=== PATIENT | male | born 1980 | race Caucasian/White ===

== ENCOUNTER 2019-08-01 19:02 | Inpatient (IN) | payer OTHER, SELFPAY ==
--- NOTE | ~2019-08-01 | XR_ITS ---
EXAMINATION: XR foot RT 2V DATE: 08/02/2019 08:05 INDICATION: Lateral right foot edema and erythema. TECHNIQUE: Dorsoplantar and lateral views of the right foot were obtained. COMPARISON: 09/01/2005 FINDINGS: Alignment is normal. No acute fracture. Thick indolent appearing periosteal reaction along the diaphy sis of the third metatarsal likely related to healed stress fracture. Joint spaces are normal. No cor tical erosions. Small plantar calcaneal spur. Soft tissues are unremarkable. IMPRESSION: 1. No acute osseous abnormality. Reviewed, dictated and finalized at location A.
--- NOTE | ~2019-08-01 | CT_ITS ---
EXAMINATION: CT brain wo con EXAM DATE: 08/01/2019 22:22 INDICATION: Temporary change in awareness, found walking on the side of the road. Confusion. TECHNIQUE: Spiral CT of the head was performed without contrast. Axial, coronal and sagittal images were reviewed. The dose-length product (DLP) for this examination was 1362.00 mGy-cm. The exposure was tailored according to patient size, and iterative reconstruction (ASIR) was used as additional do se reduction technique. Comparison is made to prior examination from 02/04/2019. FINDINGS: Study is limited due to patient motion. Patient was scanned twice. There is no acute intrap arenchymal hemorrhage. No evidence of intraparenchymal brain mass lesion. No evidence of acute infa rction. There is no mass effect or midline shift. The ventricles are normal in size. There are no extra-axial collections. There are no acute calvarial fractures. The orbits are unremarkable. Soft tissue is unremarkable. Mild left maxillary sinus mucoperiosteal thickening. IMPRESSION: 1. No acute intracranial findings. Reviewed, dictated and finalized at location G.
--- NOTE | 2019-08-01 19:13 | ECG_ITS ---
Measurements Intervals [place] Rate: 109 P: 34 DE: 144 QRS: 73 QRSD: 106 T: 43 QT: 377 QTc: 508 Interpretive Statements SINUS TACHYCARDIA BASELINE ARTIFACT- I, II, III, AVR, AVL, AVF, V1-V2, V4-V6 ABNORMAL ECG Electronically Signed On 08-02-2019 7:15:14 CDT by Brandon Hancock D.O.
[2019-08-01 19:14] VITALS: BP 127/90; PULSE 102; RESP 22; TEMP 36.7; O2SAT 99
[2019-08-01 19:40] LABS: Basophils Percent Auto 0.3 % (0.2-1.2); Eosinophils Percent Auto 0.1 % (0-4.4); Hematocrit 39.3 % (42.0-52.0); Immature Granulocyte Absolute 0.09 K/mm3 (0.00-0.031); Lymphocytes Absolute Auto 0.84 K/mm3 (0.9-3.2); Lymphocytes Percent Auto 9.6 % (18.3-44.2); Mean Corpuscular HGB Conc 33.1 g/dl (32-36); Mean Corpuscular Hemoglobin 28.5 pg (26-34); Mean Corpuscular Volume 86.2 fl (80-100); Monocytes Absolute Auto 0.9 K/mm3 (0.1-0.6); Neutrophils Absolute Auto 6.9 K/mm3 (1.3-6.7); Platelet Count Result 188 k/mm3 (150-375); Red Blood Count 4.56 M/mm3 (4.6-6.20); Red Cell Distribution Width 14.4 % (11.5-14.5); White Blood Count 8.8 K/mm3 (4.5-10.0)
[2019-08-01 19:52] LABS: Alanine Aminotransferase 73 U/L (4-50); Albumin Level 4.3 g/dL (3.5-5.1); Alkaline Phosphatase 181 U/L (38-126); Aspartate Amino Transferase 139 U/L (17-59); Bilirubin,Total 1.5 mg/dL (0.2-1.3); Blood Urea Nitrogen 23 mg/dL (9-20); Calcium 9.5 mg/dL (8.4-10.2); Carbon Dioxide 30 mmol/L (22-30); Chloride 89 mmol/L (98-107); Estimated CRCL calculation 76 ml/min; Estimated Glomerular Filt Rate > 60; Glucose 87 mg/dL (75-110); Potassium 3.3 mmol/L (3.4-5.0); Sodium 132 mmol/L (137-145)
[2019-08-01 19:57] VITALS: BP 134/94; PULSE 92; RESP 20; O2SAT 97
--- NOTE | 2019-08-01 20:17 | ED.GENADULT ---
HPI - General Adult General Chief complaint: Altered Mental Status Stated complaint: AMS Time Seen by Provider: 08/01/19 20:03 History of Present Illness HPI narrative: 38 yo male w/ h/o alcohol abuse, alcohol withdrawal BIBEMS [place] He wsa noted to be uncooperative and talking nonsensically. He is not providing any useful history at this time. On chart review it appears that he has been here multiple times for both alcohol intoxication and alcohol withdrawal including seizures. Related Data Allergies Allergy/AdvReac Type Severity Reaction Status Date / Time No Known Allergies Allergy Unknown Verified 06/22/19 11:35 Review of Systems Review of Systems: ROS unobtainable: Yes unobtainable due to mental status PMFSH Past Medical History Medical History (Updated 08/01/19 @ 23:51 by Alex Fagan MD) Alcohol abuse Alcohol withdrawal seizure Social History Social History (Updated 08/01/19 @ 20:55 by Alex Fagan MD) Alcohol intake: current Substance use type: marijuana Gender identity (if verbalized by the patient): Male Exam Const: Nutritional Appearance: well nourished Other: Oriented to self and location. Deshevled and unkempt. Feet mildly swollen with many abrasions. Eyes: Conjunctivae: conjunctivae normal Pupils: Equal, round and reactive pupils present EOM: EOMs intact bilaterally Chest: Chest palpation & inspection: normal inspection of the chest Resp: Effort & Inspection: normal respiratory effort Auscultation: clear to auscultation bilaterally Cardio: Rate: regular rate Rhythm: regular rhythm GI: GI Palp: Yes Soft to palpation and No Tenderness to palpation present (GI) Psych: Thought content: Yes Hallucination(s) present Course Vital Signs Vital signs: Vital Signs Temperature 36.7 C 08/01/19 19:14 Pulse Rate 102 H 08/01/19 19:14 Respiratory Rate 22 H 08/01/19 19:14 Blood Pressure 127/90 08/01/19 19:14 Pulse Oximetry 99 08/01/19 19:14 Temperature 36.7 C 08/01/19 19:14 Pulse Rate 100 08/01/19 22:20 Respiratory Rate 22 H 08/01/19 22:20 Blood Pressure 132/98 H 08/01/19 22:20 Pulse Oximetry 100 08/01/19 21:00 Medical Decision Making MDM Narrative Medical decision making narrative: He does not have any ethanol in his system. Urine drug screen is only positive for marijuana. Given his history I will begin treatment for possible alcohol withdrawal, although he is not showing clear physiological evidence of withdrawal symptoms. Differential Diagnosis Differential Diagnosis: Withdrawal, intoxication, psychosis, other Medical Records Medical records reviewed: Yes I reviewed the patient's medical records. Vital Signs Vital Signs: Vital Signs Temperature 36.7 C 08/01/19 19:14 Pulse Rate 102 H 08/01/19 19:14 Respiratory Rate 22 H 08/01/19 19:14 Blood Pressure 127/90 08/01/19 19:14 Pulse Oximetry 99 08/01/19 19:14 Temperature 36.7 C 08/01/19 19:14 Pulse Rate 100 08/01/19 22:20 Respiratory Rate 22 H 08/01/19 22:20 Blood Pressure 132/98 H 08/01/19 22:20 Pulse Oximetry 100 08/01/19 21:00 Lab Data Lab results reviewed: Yes I reviewed the patient's lab results. Result diagrams: 08/01/19 19:34 08/01/19 19:34 Labs: Lab Results 08/01/19 08/01/19 08/01/19 Range/Units 19:34 19:34 19:34 WBC 8.8 (4.5-10.0) K/mm3 RBC 4.56 L (4.6-6.20) M/mm3 Hgb 13.0 L (14.0-18.0) g/dL Hct 39.3 L (42.0-52.0) % MCV 86.2 (80-100) fl MCH 28.5 (26-34) pg MCHC 33.1 (32-36) g/dl RDW 14.4 (11.5-14.5) % Plt Count 188 (150-375) k/mm3 MPV 10.0 (7.4-10.4) fl Immature Gran % (Auto) 1.0 H (0-0.5) % Neut % (Auto) 79.0 H (45.5-73.1) % Lymph % (Auto) 9.6 L (18.3-44.2) % Page % (Auto) 10.0 H (2.6-8.5) % Eos % (Auto) 0.1 (0-4.4) % Baso % (Auto) 0.3 (0.2-1.2) % Lymph # (Auto) 0.84 L (0.9-3.2)
[2019-08-01 20:26] LABS: Ethanol < 10 mg/dL (<10)
--- NOTE | 2019-08-01 20:35 | PC.NURSE ---
Pt had a bowel movement in bed. RN attempting to clean patient up. pt no cooperating. pt refuses to let RN wipe up stool pt states this is going to be a lawsuit. gill tender notified.
--- NOTE | 2019-08-01 20:37 | PC.NURSE ---
pt talking about hearing voices. RN asked pt what he hears pt does not answer. pt states he has grown pot before and states that he thinks he has a learning deficit. Pt then continues to reports that he is from a far and starts talking about how his brother used to have to walk the whole field.
[2019-08-01 21:00] VITALS: BP 126/77; PULSE 87; RESP 17; O2SAT 100
[2019-08-01] MEDS: THIAMINE HCL 200 MG/2 ML VIAL 100 MG IV PUSH (21:12)
[2019-08-01] MEDS: SODIUM CHLORIDE 0.9% IV 1,000 ML 999 ML IV CONT ×2 (21:13→22:38)
[2019-08-01 21:19] LABS: Add Urine Microscopic? YES; Appearance Urine Cloudy (Clear); Bacteria Urine Trace /hpf; Bilirubin Urine 2+ (Negative); Blood Urine 1+ (Negative); Color Urine Amber (Yellow); Glucose Urine UA Negative (Negative); Hyaline Casts Urine 50+ /lpf; Ketones Urine 1+ mg/dL (Negative); Leukocyte Esterase Ur Negative LEU/UL (Negative); Mucus Urine Heavy /lpf; Nitrate Urine Negative (Negative); Protein Urine 3+ mg/dL (Negative); Specific Grav Ur 1.027 (1.001-1.035); Squamous Epithelial Cell Urine Occasional /hpf (Few); WBC Urine 31-50 /hpf
[2019-08-01 21:26] LABS: Amphetamine Screen Urine Negative (Negative); Barbiturate Screen Urine Negative (Negative); Benzodiazepines Screen Urine Negative (Negative); Cannabinoid Screen Urine Positive (Negative); Cocaine Screen Urine Negative (Negative); Methadone Screen Urine Negative (Negative); Opiate Screen Urine Negative (Negative); Phencyclidine Screen Urine Negative (Negative)
[2019-08-01] MEDS: LORAZEPAM INJ 2 MG/ML VIAL 4 MG IV PUSH (21:37)
--- NOTE | 2019-08-01 22:13 | PC.NURSE ---
pt down to ct
[2019-08-01 22:20] VITALS: BP 132/98; PULSE 100; RESP 22
[2019-08-01 23:46] LABS: Creatine Kinase 4016 U/L (55-170)
[2019-08-02] VITALS (19 sets, daily range): BP systolic 117–150; BP diastolic 58–95; PULSE 69–105; RESP 14–20; TEMP 36.1–36.8; O2SAT 96–100; BMI 25.0
[2019-08-02] MEDS: LORAZEPAM INJ 2 MG/ML VIAL IV PUSH ×3 (00:12→20:11)
[2019-08-02] MEDS: LACTATED RINGERS 1,000 ML 200 ML IV CONT (00:51)
--- NOTE | 2019-08-02 01:31 | PC.NURSE ---
Pt is unable to receive admission information, not alert.
--- NOTE | 2019-08-02 01:51 | PC.NURSE ---
Called and left message at [phone] for Arsenio Rubin, listed as next of kin, to return call to do admission, pt is not alert.
--- NOTE | 2019-08-02 02:28 | PC.NURSE ---
Called Yi Rubin listed as s.o. at [phone] to obtain info for admission. Pt is still not alert. Rang several times, but did not go to voicemail.
--- NOTE | 2019-08-02 03:56 | PM.IMHP ---
H&P: HPI History of Present Illness Chief complaint: Found naked on the side of the road hallucinating Narrative: Kristian Tirado is a 38 year old male with a past medical history of multiple admissions for encephalopathy and alcohol withdrawal who presented to the ER via EMS after being found wandering naked and confused. When the patient arrived to the ER was alert and oriented to person and time. He had reported to ER staff that he was hearing voices. He also admitted to drinking too much alcohol. However his alcohol level in the ER was zero. The patient's feet were dirty and had multiple wounds. In the ER the patient was complaining of but pain due to ongoing but abscess. The the only 2 sentences that the patient spoke to me that made since was to tell me that he had a cleft palate that was discovered at the age of 29 and that he bit the end of his tongue off 1 time when he had a seizure. Review of the patient's external med history demonstrates that the patient has not filled his seizure meds since January. He did have Celexa and hydroxyzine filled in June. He is unable to answer any questions regarding his medication history. Source of information: Past medical records and ER records. Review of Systems Review of Systems: ROS unobtainable: Yes unobtainable due to mental status PMFSH Past Medical History Medical History (Updated 08/02/19 @ 04:11 by Татьяна Cortez DO) Alcohol abuse Alcohol withdrawal seizure Alcoholic hepatitis Alcoholic pancreatitis BPH (benign prostatic hyperplasia) Chronic anemia With labs consistent with anemia of chronic disease COPD (chronic obstructive pulmonary disease) Depression with anxiety Essential hypertension Hypercholesterolemia Cholesterol 490 15 April 2018 Hypertriglyceridemia Triglycerides 270 18 April 2018 Kidney stones Peripheral neuropathy Tobacco dependence Surgical History Surgical History (Updated 08/02/19 @ 04:06 by Татьяна Cortez DO) No significant past surgical history Family History Family History (Updated 08/02/19 @ 04:09 by Татьяна Cortez DO) Mother COPD (chronic obstructive pulmonary disease) Breast cancer Hypertension Seizures Diabetes mellitus Father Diabetes mellitus Parkinsons disease Lewy body dementia Social History Social History (Updated 08/02/19 @ 04:09 by Татьяна Cortez DO) Social History: He has 3 children. According to prior H&Ps the patient consumed at least a 5th of gin or vodka a day. Smoking packs per day: 1 Smoking cigarettes per day: 20.0 Smoking status: Current every day smoker Alcohol intake: current Substance use: current Substance use type: marijuana Gender identity (if verbalized by the patient): Male Meds Home Medications and Allergies Home Medications Medication Instructions Recorded Confirmed Type Unable to Obtain Home Medications 08/02/19 08/02/19 History Allergies Allergy/AdvReac Type Severity Reaction Status Date / Time No Known Allergies Allergy Unknown Verified 06/22/19 11:35 Vital Signs Vital Signs - 24 hr 08/01/19 19:14 08/01/19 19:57 08/01/19 21:00 Temperature 98.1 F Pulse Rate 102 H 92 87 Pulse Rate [Monitor] Respiratory Rate 22 H 20 17 Blood Pressure 127/90 134/94 H 126/77 Pulse Oximetry 99 97 100 08/01/19 22:20 08/02/19 00:23 08/02/19 00:25 Temperature 98.3 F Pulse Rate 100 89 84 Pulse Rate [Monitor] Respiratory Rate 22 H 14 18 Blood Pressure 132/98 H 117/89 127/64 Pulse Oximetry 98 97 08/02/19 00:35 08/02/19 00:54 08/02/19 01:11 Temperature Pulse Rate 80 Pulse Rate [Monitor] 92 93 Respiratory Rate Blood Pressure Pulse Oximetry 08/02/19 02:00 Temperature Pulse Rate 94 Pulse Rate [Monitor] Respiratory Rate Blood Pressure Pulse Oximetry Exam Narrative: Exam Narrative: PHYSICAL EXAM: WEIGHT 83.5 kg BMI 25 General: Disheveled, no acute distress, left lateral recumbent posi
[2019-08-02 04:37] LABS: Hematocrit 32.5 % (42.0-52.0); Hemoglobin 10.8 g/dL (14.0-18.0); Mean Corpuscular HGB Conc 33.2 g/dl (32-36); Mean Corpuscular Hemoglobin 28.5 pg (26-34); Mean Corpuscular Volume 85.8 fl (80-100); Mean Platelet Volume 9.4 fl (7.4-10.4); Platelet Count Result 157 k/mm3 (150-375); Red Blood Count 3.79 M/mm3 (4.6-6.20); Red Cell Distribution Width 14.6 % (11.5-14.5); White Blood Count 7.3 K/mm3 (4.5-10.0)
[2019-08-02 04:49] LABS: Ammonia 17 umol/L (9-30)
[2019-08-02 04:52] LABS: Magnesium 1.5 mg/dL (1.6-2.3)
[2019-08-02 05:01] LABS: Blood Urea Nitrogen 22 mg/dL (9-20); Carbon Dioxide 23 mmol/L (22-30); Chloride 96 mmol/L (98-107); Creatine Kinase 2512 U/L (55-170); Estimated CRCL calculation 120 ml/min; Estimated Glomerular Filt Rate > 60; Glucose 71 mg/dL (75-110); Potassium 2.7 mmol/L (3.4-5.0); Sodium 132 mmol/L (137-145)
[2019-08-02 07:39] LABS: Folic Acid 14.2 ng/mL (2.76->20)
[2019-08-02] MEDS: ENOXAPARIN 40 MG/0.4 ML SYRINGE SUB-Q (08:06)
[2019-08-02] MEDS: NICOTINE (*PBKC) 21 MG PATCH 1 PATCH TRANSDERM (08:06)
[2019-08-02] MEDS: MAGNESIUM SULF 2 GM/WATER 50ML 2 GM/50 ML BAG IVPB (09:09)
[2019-08-02] MEDS: LACTATED RINGERS 1,000 ML 75 ML IV CONT (09:14)
[2019-08-02] MEDS: POTASSIUM CHLORIDE 20 MEQ TABLET 40 MEQ PO ×2 (17:15→20:11)
--- NOTE | 2019-08-02 17:32 | PM.IMPN ---
Progress Note: A&P Assessment and Plan (1) Acute encephalopathy: Code(s): G93.40 - Encephalopathy, unspecified Status: Acute Assessment and Plan: I suspect this is due to alcohol withdrawal and much improved this a.m. so continue aggressive hydration and monitor for withdrawal. He may also have ingested drugs that may not show up on urine drug screen such as bath salts. B12 and thyroid are normal also to rule out other causes for encephalopathy. (2) Alcohol abuse: Code(s): F10.10 - Alcohol abuse, uncomplicated Status: Acute Assessment and Plan: Will check CIWA scores every 4 hours. The patient will be started scheduled Librium and p.r.n. Ativan will be added for CIWA scores greater than 8. (3) Rhabdomyolysis: Qualifiers: Rhabdomyolysis type: non-traumatic Qualified Code(s): M62.82 - Rhabdomyolysis Code(s): M62.82 - Rhabdomyolysis Status: Acute Assessment and Plan: Continue aggressive IV fluid hydration. CK today decreased to 2500. Will give sedatives to try to control some of the patient's manic behaviors to reduce physical exertion. Creatinine remains normal (4) Hypokalemia: Code(s): E87.6 - Hypokalemia Status: Acute Assessment and Plan: K 2.7 this a.m. and will receive 120 mEq of KCl and repeat this p.m. (5) Elevated LFTs: Code(s): R79.89 - Other specified abnormal findings of blood chemistry Status: Acute Assessment and Plan: Mildly elevated. Hepatitis screens been negative in the past thought all secondary to alcohol will follow serially (6) DVT prophylaxis: Code(s): Z29.9 - Encounter for prophylactic measures, unspecified Status: Acute Assessment and Plan: Platelets are normal so will give Lovenox prophylactically Subjective Date/time seen: 08/02/19 17:32 Interval history: Date of visit 08/01. 38-year-old white male alcoholic admitted with altered mental status electrolyte disturbances, and symptoms of withdrawal. Long history of ETOH abuse withdrawal seizures. More alert and no specific complaints this a.m. other than his chronic neuropathy type symptoms Exam Narrative: Exam Narrative: Blood pressure 120/76 pulse is 96 respirations 16 afebrile saturating 97% on room air Pupils equal reactive to light sclera anicteric and pupils are not dilated Neck supple no adenopathy or carotid bruits Lungs clear CV regular rate rhythm Abdomen is soft nontender Extremities without edema distal pulses are 2+ Neuro alert oriented to person place and time with no focal deficits Integument no skin breakdown rashes Objective Data Vital Signs Vital Signs: Vital Signs - 24 hr 08/01/19 19:14 08/01/19 19:57 08/01/19 21:00 Temperature 36.7 C Pulse Rate 102 H 92 87 Pulse Rate [Monitor] Respiratory Rate 22 H 20 17 Blood Pressure 127/90 134/94 H 126/77 Pulse Oximetry 99 97 100 08/01/19 22:20 08/02/19 00:23 08/02/19 00:25 Temperature 36.8 C Pulse Rate 100 89 84 Pulse Rate [Monitor] Respiratory Rate 22 H 14 18 Blood Pressure 132/98 H 117/89 127/64 Pulse Oximetry 98 97 08/02/19 00:35 08/02/19 00:54 08/02/19 01:11 Temperature Pulse Rate 80 Pulse Rate [Monitor] 92 93 Respiratory Rate Blood Pressure Pulse Oximetry 08/02/19 02:00 08/02/19 04:00 08/02/19 05:52 Temperature 36.6 C Pulse Rate 94 81 79 Pulse Rate [Monitor] 81 Respiratory Rate 20 Blood Pressure 130/58 L Pulse Oximetry 100 08/02/19 08:00 08/02/19 10:00 08/02/19 11:18 Temperature 36.1 C L 36.4 C Pulse Rate 90 105 H 98 Pulse Rate [Monitor] 90 Respiratory Rate 18 16 Blood Pressure 150/95 H 120/77 Pulse Oximetry 99 96 08/02/19 12:00 08/02/19 14:00 08/02/19 16:00 Temperature 36.2 C L Pulse Rate 99 86 102 H Pulse Rate [Monitor] 90 Respiratory Rate 16 18 Blood Pressure 120/77 131/80 Pulse Oximetry 96 97 Intake/Output Intake/Output: Intake & Outpu
[2019-08-02 18:02] LABS: Albumin Level 3.6 g/dL (3.5-5.1); Blood Urea Nitrogen 15 mg/dL (9-20); Calcium 8.6 mg/dL (8.4-10.2); Carbon Dioxide 30 mmol/L (22-30); Chloride 95 mmol/L (98-107); Estimated CRCL calculation 120 ml/min; Estimated Glomerular Filt Rate > 60; Glucose 126 mg/dL (75-110); Phosphorus 3.2 mg/dL (2.5-4.5); Potassium 3.3 mmol/L (3.4-5.0); Sodium 130 mmol/L (137-145)
[2019-08-02] MEDS: LACTATED RINGERS 1,000 ML 125 ML IV CONT (19:01)
[2019-08-03] VITALS (13 sets, daily range): BP systolic 137–163; BP diastolic 80–116; PULSE 75–97; RESP 16–20; TEMP 36.3–37.5; O2SAT 98–100
[2019-08-03] MEDS: LORAZEPAM INJ 2 MG/ML VIAL IV PUSH (01:15)
[2019-08-03] MEDS: LACTATED RINGERS 1,000 ML 125 ML IV CONT ×3 (03:50→20:03)
[2019-08-03 04:42] LABS: Basophils Absolute Auto 0.1 K/mm3 (0.0-0.1); Basophils Percent Auto 0.8 % (0.2-1.2); Eosinophils Absolute Auto 0.3 K/mm3 (0-0.3); Eosinophils Percent Auto 4.3 % (0-4.4); Hematocrit 34.1 % (42.0-52.0); Hemoglobin 10.9 g/dL (14.0-18.0); Immature Granulocyte Absolute 0.12 K/mm3 (0.00-0.031); Immature Granulocyte Percent A 1.9 % (0-0.5); Lymphocytes Absolute Auto 1.33 K/mm3 (0.9-3.2); Lymphocytes Percent Auto 20.6 % (18.3-44.2); Mean Corpuscular Hemoglobin 28.1 pg (26-34); Mean Corpuscular Volume 87.9 fl (80-100); Monocytes Absolute Auto 0.9 K/mm3 (0.1-0.6); Monocytes Percent Auto 14.5 % (2.6-8.5); Neutrophils Absolute Auto 3.8 K/mm3 (1.3-6.7); Neutrophils Percent Auto 57.9 % (45.5-73.1); Platelet Count Result 180 k/mm3 (150-375); Red Blood Count 3.88 M/mm3 (4.6-6.20); Red Cell Distribution Width 15.2 % (11.5-14.5); White Blood Count 6.5 K/mm3 (4.5-10.0)
[2019-08-03 04:55] LABS: Alanine Aminotransferase 52 U/L (4-50); Albumin Level 3.1 g/dL (3.5-5.1); Alkaline Phosphatase 142 U/L (38-126); Aspartate Amino Transferase 75 U/L (17-59); Bilirubin,Total 0.5 mg/dL (0.2-1.3); Blood Urea Nitrogen 10 mg/dL (9-20); Calcium 8.3 mg/dL (8.4-10.2); Carbon Dioxide 25 mmol/L (22-30); Chloride 101 mmol/L (98-107); Creatine Kinase 1077 U/L (55-170); Estimated CRCL calculation 135 ml/min; Estimated Glomerular Filt Rate > 60; Glucose 121 mg/dL (75-110); Magnesium 1.6 mg/dL (1.6-2.3); Potassium 3.8 mmol/L (3.4-5.0); Sodium 133 mmol/L (137-145)
[2019-08-03 05:25] LABS: Iron 36 ug/dL (49-181)
[2019-08-03 05:34] LABS: Percent Iron Saturation 12 % (20-50)
[2019-08-03] MEDS: CHLORDIAZEPOXIDE 25 MG CAPSULE 50 MG PO ×4 (08:23→23:47)
[2019-08-03] MEDS: NICOTINE (*PBKC) 21 MG PATCH 1 PATCH TRANSDERM (08:24)
[2019-08-03] MEDS: POTASSIUM CHLORIDE 20 MEQ TABLET 40 MEQ PO (08:24)
[2019-08-03] MEDS: ENOXAPARIN 40 MG/0.4 ML SYRINGE SUB-Q (08:24)
[2019-08-03] MEDS: levETIRAcetam 500 MG TABLET PO ×2 (10:07→17:14)
[2019-08-03] MEDS: CITALOPRAM HYDROBROMIDE 20 MG TABLET PO (10:08)
--- NOTE | 2019-08-03 11:01 | PC.NURSE ---
This patient, Kristian Tirado, was transferred to [facility] on 08/03/19 at 1057. Personal belongings sent with patient. Belongings list checked and signed with receiving. Report given to GIULIANO Taylor. Appropriate documentation sent with patient.
[2019-08-03] MEDS: AMLODIPINE BESYLATE 5 MG TABLET PO (11:35)
--- NOTE | 2019-08-03 14:15 | PM.IMPN ---
Progress Note: A&P Assessment and Plan (1) Acute encephalopathy: Code(s): G93.40 - Encephalopathy, unspecified Status: Acute Assessment and Plan: I suspect this was due to alcohol withdrawal and has resolved. so continue aggressive hydration and monitor for withdrawal. He may also have ingested drugs that may not show up on urine drug screen such as bath salts. B12 and thyroid are normal also to rule out other causes for encephalopathy. (2) Alcohol abuse: Code(s): F10.10 - Alcohol abuse, uncomplicated Status: Acute Assessment and Plan: Will check CIWA scores every 4 hours. The patient is on scheduled Librium and p.r.n. Ativan will be added for CIWA scores greater than 8. (3) Rhabdomyolysis: Qualifiers: Rhabdomyolysis type: non-traumatic Qualified Code(s): M62.82 - Rhabdomyolysis Code(s): M62.82 - Rhabdomyolysis Status: Acute Assessment and Plan: Continue aggressive IV fluid hydration. CK today decreased to 1077. Creatinine remains normal (4) Hypokalemia: Code(s): E87.6 - Hypokalemia Status: Acute Assessment and Plan: K 3.8 this a.m. after 160 mEq of KCl 08/01 (5) Elevated LFTs: Code(s): R79.89 - Other specified abnormal findings of blood chemistry Status: Acute Assessment and Plan: Mildly elevated. Hepatitis screens been negative in the past thought all secondary to alcohol will follow serially slightly decreased again today (6) DVT prophylaxis: Code(s): Z29.9 - Encounter for prophylactic measures, unspecified Status: Acute Assessment and Plan: Platelets are normal so will give Lovenox prophylactically (7) Seizure disorder: Code(s): G40.909 - Epilepsy, unspecified, not intractable, without status epilepticus Status: Acute Assessment and Plan: Patient has had seizures in the past clot primarily withdrawal but has been on Keppra so will continue 500 b.i.d. (8) HTN (hypertension): Code(s): I10 - Essential (primary) hypertension Status: Acute Assessment and Plan: Blood pressure continues to rise. He is been treated for hypertension in the past and we will restart amlodipine 5 daily Subjective Date/time seen: 08/03/19 14:15 Interval history: Date of visit 08/02. 38-year-old white male alcoholic admitted with altered mental status electrolyte disturbances, and symptoms of withdrawal. Long history of ETOH abuse withdrawal seizures. More alert and no specific complaints this a.m. Eating breakfast and feeling better Exam Narrative: Exam Narrative: Blood pressure 150/100 pulse is 80 respirations 16 afebrile saturating 100% on room air Pupils equal reactive to light sclera anicteric and pupils are not dilated Neck supple no adenopathy or carotid bruits Lungs clear CV regular rate rhythm Abdomen is soft nontender Extremities without edema distal pulses are 2+ Neuro alert oriented to person place and time with no focal deficits Integument no skin breakdown rashes Objective Data Vital Signs Vital Signs: Vital Signs - 24 hr 08/02/19 16:00 08/02/19 18:00 08/02/19 19:50 Temperature 36.2 C L 36.8 C Pulse Rate 98 100 86 Pulse Rate [Monitor] Respiratory Rate 18 16 Blood Pressure 131/80 133/81 Pulse Oximetry 97 97 08/02/19 20:00 08/02/19 22:00 08/02/19 23:58 Temperature 36.6 C Pulse Rate 90 89 87 Pulse Rate [Monitor] 90 Respiratory Rate 16 Blood Pressure 131/79 Pulse Oximetry 97 08/03/19 00:00 08/03/19 02:00 08/03/19 03:51 Temperature 36.4 C L Pulse Rate 91 97 91 Pulse Rate [Monitor] 91 Respiratory Rate 16 Blood Pressure 137/80 Pulse Oximetry 98 08/03/19 04:00 08/03/19 06:00 08/03/19 08:00 Temperature Pulse Rate 90 94 96 Pulse Rate [Monitor] Respiratory Rate Blood Pressure Pulse Oximetry 08/03/19 08:44 08/03/19 08:47 08/03/19 09:30 Temperature 36.3 C L Pulse Rate 9
[2019-08-04 02:00] VITALS: BP 156/82; PULSE 72; RESP 20; TEMP 36.2; O2SAT 97
[2019-08-04] MEDS: LACTATED RINGERS 1,000 ML 125 ML IV CONT (04:17)
[2019-08-04] MEDS: CHLORDIAZEPOXIDE 25 MG CAPSULE 50 MG PO (06:08)
[2019-08-04 06:25] VITALS: BP 145/79; PULSE 76; RESP 18; TEMP 36.3; O2SAT 98
[2019-08-04 07:12] LABS: Alanine Aminotransferase 69 U/L (4-50); Albumin Level 3.1 g/dL (3.5-5.1); Alkaline Phosphatase 136 U/L (38-126); Aspartate Amino Transferase 79 U/L (17-59); Bilirubin,Total 0.3 mg/dL (0.2-1.3); Blood Urea Nitrogen 7 mg/dL (9-20); Calcium 8.6 mg/dL (8.4-10.2); Carbon Dioxide 27 mmol/L (22-30); Chloride 101 mmol/L (98-107); Creatine Kinase 546 U/L (55-170); Estimated CRCL calculation 135 ml/min; Estimated Glomerular Filt Rate > 60; Glucose 110 mg/dL (75-110); Magnesium 1.3 mg/dL (1.6-2.3); Potassium 4.2 mmol/L (3.4-5.0); Sodium 132 mmol/L (137-145)
[2019-08-04] MEDS: ENOXAPARIN 40 MG/0.4 ML SYRINGE SUB-Q (08:31)
[2019-08-04] MEDS: levETIRAcetam 500 MG TABLET PO (08:31)
[2019-08-04] MEDS: CITALOPRAM HYDROBROMIDE 20 MG TABLET PO (08:31)
[2019-08-04] MEDS: NICOTINE (*PBKC) 21 MG PATCH 1 PATCH TRANSDERM (08:31)
[2019-08-04] MEDS: AMLODIPINE BESYLATE 5 MG TABLET PO (08:31)
[2019-08-04 10:00] VITALS: BP 155/96; PULSE 103; RESP 19; TEMP 36.7; O2SAT 96
[2019-08-04] MEDS: MAGNESIUM SULFATE 3GM/D5W100ML 3 GM/100 ML BAG IVPB (11:08)
[2019-08-04] MEDS: CHLORDIAZEPOXIDE 25 MG CAPSULE PO (11:11)
--- NOTE | 2019-08-04 14:53 | PC.NURSE ---
Patients family concerned with patient being discharged home. They have requested he stay here until he can be accepted to a psych facility. Spoke with college and career counselor who will speak with family in regards to plan of care. At this time, patient will be going to [facility] on Tuesday when bed is available. As of now, he will be discharged to a motel where his father in law, Arsenio, is going to pay for his stay for two nights until he can be accepted to the psych unit.
--- NOTE | 2019-08-04 17:55 | PM.DS ---
DS: Diagnosis Admitting Diagnosis Admitting Diagnosis: Encephalopathy, unspecified Discharge Diagnosis (1) Acute encephalopathy: Code(s): G93.40 - Encephalopathy, unspecified Status: Acute Assessment and Plan: [place] all due to alcohol withdrawal and has resolved with hydration and supportive care He may also have ingested drugs that may not show up on urine drug screen such as bath salts. B12 and thyroid are normal also to rule out other causes for encephalopathy. (2) Alcohol abuse: Code(s): F10.10 - Alcohol abuse, uncomplicated Status: Acute Assessment and Plan: The patient was on scheduled Librium which was tapered while here and p.r.n. Ativan (3) Rhabdomyolysis: Qualifiers: Rhabdomyolysis type: non-traumatic Qualified Code(s): M62.82 - Rhabdomyolysis Code(s): M62.82 - Rhabdomyolysis Status: Acute Assessment and Plan: . Initial CPK greater than 4000 and day of discharge in the 546 after IV hydration Creatinine remained normal (4) Hypokalemia: Code(s): E87.6 - Hypokalemia Status: Acute Assessment and Plan: K 4.2 date of discharge (5) Elevated LFTs: Code(s): R79.89 - Other specified abnormal findings of blood chemistry Status: Acute Assessment and Plan: Mildly elevated. Hepatitis screens been negative in the past thought all secondary to alcohol. Date trended down while here and we encouraged him to stain from a all (6) Seizure disorder: Code(s): G40.909 - Epilepsy, unspecified, not intractable, without status epilepticus Status: Acute Assessment and Plan: Patient has had seizures in the past thought to be primarily withdrawal but has been on Keppra so will continue 500 b.i.d. (7) HTN (hypertension): Code(s): I10 - Essential (primary) hypertension Status: Acute Assessment and Plan: Blood pressure continued to run. He had been treated for hypertension in the past and we restarted amlodipine 5 daily DS: Summary Hospital Course Hospital Course: 38-year-old alcoholic found side of the road hallucinating and was brought to the emergency room for evaluation. Blood to be in a home withdrawal and was admitted for treatment of the same. With hydration and supportive care his mental status returned to normal. He did have rhabdo and was treated with IV hydration with falling of CPK He was encouraged again to abstain from alcohol. He will follow up with primary care within 1 week and if does would be good to have repeat LFTs Time Spent with Patient Time attestation: Total time spent providing and/or coordinating discharge services: 35 minutes Exam Narrative: Exam Narrative: Condition on discharge Blood pressure 154/90 pulse is 96 sat 96 room air afebrile Lungs clear CV regular rate rhythm Abdomen soft nontender Extremities without edema Neuro alert oriented x3 cooperative with no focal deficits DS: Data Data Completed and Pending Labs on day of discharge: Labs from last 24 hours 08/04/19 06:34 Sodium 132 L Potassium 4.2 Chloride 101 Carbon Dioxide 27 BUN 7 L Creatinine 0.70 Estim Creat Clear Calc 135 Estimated GFR > 60 Glucose 110 Calcium 8.6 Magnesium 1.3 L Total Bilirubin 0.3 AST 79 H ALT 69 H Alkaline Phosphatase 136 H Total Creatine Kinase 546 H Total Protein 6.0 L Albumin 3.1 L Discharge Plan Discharge Attending physician on discharge: Adam Wells Discharging Clinician: Adam Wells Patient Disposition: Home, Self-Care Activity: as tolerated Diet: low sodium Discharge Instructions: no alcohol Patient Instructions: Amlodipine (By mouth), How to Stop Smoking (DC), Alcohol Intoxication (ED) Stand Alone Forms: General Discharge Information Follow-up/Referrals: Keo,Yi Pak MD [Primary Care Provider] - 2 Weeks Discharge Medications: New amlodipine [Norvasc] 5 mg T
== END 2019-08-04 15:07 | disposition home or self-care (01) | DRG 775 ==
LOC: ANHED 23:34 → ANHIMU 23:51 → ANH2MED 08-04 11:53 → ANHIMU 08-08 07:22
PROVIDERS: Emergency Medicine; Admitting Provider Internal Medicine; Emergency Provider Emergency Medicine; PCP Family Medicine; Visit Provider Internal Medicine
DX: F10.151 Alcohol abuse with alcohol-induced psychotic disorder with hallucinations (principal); N40.0 Benign prostatic hyperplasia without lower urinary tract symptoms; D63.8 Anemia in other chronic diseases classified elsewhere; J44.9 Chronic obstructive pulmonary disease, unspecified; F41.8 Other specified anxiety disorders; I10 Essential (primary) hypertension; E78.00 Pure hypercholesterolemia, unspecified; E78.1 Pure hyperglyceridemia; Z87.442 Personal history of urinary calculi; G62.9 Polyneuropathy, unspecified; F17.210 Nicotine dependence, cigarettes, uncomplicated; G93.49 Other encephalopathy; M62.82 Rhabdomyolysis; E87.6 Hypokalemia; G40.909 Epilepsy, unspecified, not intractable, without status epilepticus
CPT/HCPCS: 36415; 51701; 70450; 73620; 80048; 80053; 80069; 80307; 81001; 82140; 82550; 82607; 82728; 82746; 83540; 83550; 83735; 84443; 85025; 85027; 87086; 93005; 96361; 96374; 96375; 99285; A9270; J1650; J2060; J3411; J3475; J3480; J7030; J7120

== ENCOUNTER 2019-10-14 19:26 | Inpatient (IN) | payer OTHER, SELFPAY ==
--- NOTE | ~2019-10-14 | MR_ITS ---
EXAMINATION: MR brain/brain stem wo/w con DATE: 10/15/2019 11:07 INDICATION: Seizure. TECHNIQUE: Magnetic resonance imaging (MRI) of the brain and brainstem was performed without and with 19 mL MultiHance intravenous contrast. Sequences included sagittal and axial T1-weighted FSE, axial diffusion-weighted FS EPI, axial T2*-weighted GRE, axial T2-weighted FLAIR Propeller, and axial T2-we ighted Propeller. Postcontrast sequences included axial and coronal T1-weighted FSE. Apparent diffusi on coefficient (ADC) maps were created. COMPARISON: Head CT 10/14/2019, 04/26/18, 06/16/18 FINDINGS: Motion artifact is noted. There is cystic encephalomalacia in the central fabiola bilaterally with sparing of the corticospinal tracts. There is no intracranial hemorrhage, acute infarction, or a bnormal intracranial mass lesion. The ventricles are normal in size. The orbits are normal. There is mild mucosal thickening in the ethmoid sinuses. There is right cheek soft tissue swelling. IMPRESSION: 1. 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 Reviewed, dictated and finalized at location [facility]. IMPRESSION: 1. Chronic encephalomalacia in the central fabiola in a distribution typical of ce ntral pontine myelinolysis.
--- NOTE | ~2019-10-14 | CT_ITS ---
EXAMINATION: CT brain wo con DATE: 10/14/2019 20:49 INDICATION: Seizure. Confusion. TECHNIQUE: Computed tomography (CT) of the head was performed without intravenous contrast. The mA wa s adjusted according to patient size. Iterative reconstruction technique was employed. Exam dose: 60 5.33 mGy-cm total exam DLP. COMPARISON: 08/01/2019 CT brain FINDINGS: There is some diminished attenuation in the region of the fabiola which may be due to intrinsi c abnormality versus beam hardening artifact. Consider MRI brain for more definitive evaluation. There is greater than expected prominence of the vertical sulci and ventricles for age, suggesting ce rebral atrophy of uncertain origin. No intracranial mass lesion or hemorrhage, midline shift or mass effect or subdural or epidural hemat dangelo is detected. No fracture or bone destruction of the cranial vault. IMPRESSION: Consider MRI of the brain for more definitive evaluation of possible encephalomalacia th e lungs versus beam hardening artifact Greater than expected cerebral atrophy Reviewed, dictated and finalized at [facility]. Reviewed, dictated and finalized at location [facility]. IMPRESSION: Consider MRI of the brain for more definitive evaluation of possib le encephalomalacia the lungs versus beam hardening artifact Greater than expected cerebral atrophy
[2019-10-14 19:38] VITALS: BP 145/90; PULSE 101; RESP 16; TEMP 36; O2SAT 93
[2019-10-14 20:19] LABS: Basophils Percent Auto 0.3 % (0.2-1.2); Hemoglobin 14.3 g/dL (14.0-18.0); Immature Granulocyte Absolute 0.06 K/mm3 (0.00-0.031); Immature Granulocyte Percent A 0.5 % (0-0.5); Lymphocytes Absolute Auto 0.49 K/mm3 (0.9-3.2); Lymphocytes Percent Auto 4.1 % (18.3-44.2); Mean Corpuscular Hemoglobin 30.4 pg (26-34); Mean Corpuscular Volume 89.4 fl (80-100); Mean Platelet Volume 9.7 fl (7.4-10.4); Monocytes Absolute Auto 0.6 K/mm3 (0.1-0.6); Monocytes Percent Auto 5.4 % (2.6-8.5); Neutrophils Absolute Auto 10.6 K/mm3 (1.3-6.7); Neutrophils Percent Auto 89.7 % (45.5-73.1); Platelet Count Result 221 k/mm3 (150-375); Red Cell Distribution Width 15.1 % (11.5-14.5); White Blood Count 11.8 K/mm3 (4.5-10.0)
[2019-10-14 20:21] VITALS: BP 157/116; PULSE 110; RESP 24; O2SAT 92
--- NOTE | 2019-10-14 20:27 | ED.GENADULT ---
HPI - General Adult General Chief complaint: Seizure Stated complaint: seizures Time Seen by Provider: 10/14/19 19:44 History of Present Illness HPI narrative: Patient is 38 y/o male brought in by his fiancee for multiple seizure. He states that he feels slightly confused, but otherwise feels ok. She states that she lives with him and witnessed 4-5 seizures. She states that he has been drinking and last time he drank was 2 days ago. He was prescribed Keppra previously, but has not been taking it. Related Data Home Medications Medication Instructions Recorded Confirmed citalopram 20 mg PO DAILY 08/03/19 10/15/19 levetiracetam 500 mg PO BID 08/03/19 10/15/19 Allergies Allergy/AdvReac Type Severity Reaction Status Date / Time No Known Allergies Allergy Unknown Verified 10/14/19 19:41 Review of Systems Constitutional: Constitutional: Denies chills, Denies fever(s), Denies headache(s) and Denies weakness Eyes: Eyes: Denies blurry vision ENT: Denies headache(s) and Denies neck pain Cardiovascular: Cardiovascular: Denies chest pain and Denies dyspnea Respiratory: Respiratory: Denies cough and Denies dyspnea Gastrointestinal: Gastrointestinal: Denies abdominal pain, Denies diarrhea, Denies nausea and Denies vomiting Genitourinary: Genitourinary: Denies hematuria and Denies dysuria Musculoskeletal: Musculoskeletal: Denies back pain and Denies neck pain Neurologic: Reports confusion, Denies headache(s), Reports seizure-like activity and Denies weakness PMFSH Past Medical History Medical History Alcohol abuse Alcohol withdrawal seizure Alcoholic hepatitis Alcoholic pancreatitis BPH (benign prostatic hyperplasia) Chronic anemia With labs consistent with anemia of chronic disease COPD (chronic obstructive pulmonary disease) Depression with anxiety Essential hypertension Hypercholesterolemia Cholesterol 490 15 April 2018 Hypertriglyceridemia Triglycerides 270 18 April 2018 Kidney stones Peripheral neuropathy Tobacco dependence Surgical History Surgical History No significant past surgical history Family History Family History Mother COPD (chronic obstructive pulmonary disease) Breast cancer Hypertension Seizures Diabetes mellitus Father Diabetes mellitus Parkinsons disease Lewy body dementia Social History Social History Social History: He has 3 children. According to prior H&Ps the patient consumed at least a 5th of gin or vodka a day. Smoking packs per day: 1 Smoking cigarettes per day: 20.0 Years smoked: 10 Smoking pack-years: 10.00 Smoking status: Current every day smoker Tobacco type: cigarettes Alcohol intake: current Substance use: current Substance use type: marijuana Gender identity (if verbalized by the patient): Male Spiritual care concerns: No Agree to blood products: Yes Exam Const: General: no acute distress and well developed Orientation/consciousness: oriented to person, oriented to place, oriented to time and patient oriented x3 HENMT: Head: normocephalic Ears: external ears normal General nose exam: Normal external nose present Eyes: General: appearance normal, both eyes and all related structures Conjunctivae: conjunctivae normal Neck: Neck: normal visual inspection and full ROM Chest: Chest palpation & inspection: normal inspection of the chest and no tenderness Resp: Effort & Inspection: normal respiratory effort and able to speak in complete sentences Cardio: Rate: tachycardic Rhythm: regular rhythm GI: GI Palp: No abdominal tenderness and Yes Soft to palpation Skin: General skin exam: normal color and turgor normal Neuro: General: oriented to person, oriented to place, oriented to time and patient oriented
[2019-10-14 20:29] LABS: Alanine Aminotransferase 54 U/L (4-50); Albumin Level 4.4 g/dL (3.5-5.1); Alkaline Phosphatase 189 U/L (38-126); Aspartate Amino Transferase 73 U/L (17-59); Bilirubin,Total 1.6 mg/dL (0.2-1.3); Blood Urea Nitrogen 13 mg/dL (9-20); Calcium 9.9 mg/dL (8.4-10.2); Carbon Dioxide 28 mmol/L (22-30); Chloride 92 mmol/L (98-107); Estimated CRCL calculation 107 ml/min; Estimated Glomerular Filt Rate > 60; Glucose 192 mg/dL (75-110); Potassium 3.6 mmol/L (3.4-5.0); Sodium 132 mmol/L (137-145)
[2019-10-14 20:49] LABS: Ethanol < 10 mg/dL (<10)
[2019-10-14 22:06] VITALS: BP 149/105; PULSE 130; RESP 20; O2SAT 96
[2019-10-14 22:54] VITALS: BP 145/106; PULSE 130; RESP 20; O2SAT 97
[2019-10-14 23:35] VITALS: BP 142/109; PULSE 126; RESP 22; O2SAT 97
[2019-10-14 23:46] VITALS: BP 139/94; PULSE 97; RESP 18; TEMP 36.7; O2SAT 99; BMI 29.7
[2019-10-14] MEDS: levETIRAcetam 1000MG/NACL100ML 1,000 MG/100 ML BAG 400 MG IVPB (23:57)
[2019-10-15] VITALS (20 sets, daily range): BP systolic 98–139; BP diastolic 54–94; PULSE 70–120; RESP 18–20; TEMP 35.8–36.8; O2SAT 97–100
--- NOTE | 2019-10-15 00:08 | PM.IMHP ---
H&P: HPI History of Present Illness Chief complaint: seizure Narrative: This is a 38 year old male with known alcohol abuse disorder and alcoholic hepatitis who was brought the to the hospital for multiple seizures today. His girlfriend had reported to ER staff that he had 5 seizures today. The patient admits that he last drank Vodka 2 days ago and that he wants to quit drinking alcohol. He doesn't remember any details regarding his seizures today. The patient is known to be on Keppra but apparently has not been taking it. Tonight he complains of feeling anxious, shakiness, and nausea. He was evaluated in the ER and routine labs were obtained and demonstrated elevated liver enzymes which has been chronic. The patient denies any fever, chills, cough, shortness of breath, chest pain, abdominal pain, dysuria, hematuria, diarrhea or rectal bleeding. Neurology has been consulted by ER provider. Review of Systems Review of Systems: All systems reviewed & are unremarkable except as noted in HPI and below PMFSH Past Medical History Medical History Alcohol abuse Alcohol withdrawal seizure Alcoholic hepatitis Alcoholic pancreatitis BPH (benign prostatic hyperplasia) Chronic anemia With labs consistent with anemia of chronic disease COPD (chronic obstructive pulmonary disease) Depression with anxiety Essential hypertension Hypercholesterolemia Cholesterol 490 15 April 2018 Hypertriglyceridemia Triglycerides 270 18 April 2018 Kidney stones Peripheral neuropathy Tobacco dependence Surgical History Surgical History No significant past surgical history Family History Family History Mother COPD (chronic obstructive pulmonary disease) Breast cancer Hypertension Seizures Diabetes mellitus Father Diabetes mellitus Parkinsons disease Lewy body dementia Social History Social History Social History: He has 3 children. According to prior H&Ps the patient consumed at least a 5th of gin or vodka a day. Smoking packs per day: 1 Smoking cigarettes per day: 20.0 Years smoked: 10 Smoking pack-years: 10.00 Smoking status: Current every day smoker Tobacco type: cigarettes Alcohol intake: current Substance use: current Substance use type: marijuana Gender identity (if verbalized by the patient): Male Spiritual care concerns: No Agree to blood products: Yes Meds Home Medications and Allergies Home Medications Medication Instructions Recorded Confirmed Type citalopram 20 mg PO DAILY 08/03/19 10/15/19 History levetiracetam 500 mg PO BID 08/03/19 10/15/19 History amlodipine [Norvasc] 5 mg PO QAM #30 tablet 08/04/19 10/15/19 Rx Allergies Allergy/AdvReac Type Severity Reaction Status Date / Time No Known Allergies Allergy Unknown Verified 10/14/19 19:41 Vital Signs Vital Signs - 24 hr 10/14/19 19:38 10/14/19 20:21 10/14/19 22:06 Temperature 36.0 C L Pulse Rate 101 H 110 H 130 H Respiratory Rate 16 24 H 20 Blood Pressure 145/90 H 157/116 H 149/105 H Pulse Oximetry 93 92 96 10/14/19 22:54 10/14/19 23:46 Temperature 36.7 C Pulse Rate 130 H 97 Respiratory Rate 20 18 Blood Pressure 145/106 H 139/94 H Pulse Oximetry 97 99 Exam Const: General: cooperative, alert, awake, in distress moderate and ill appearing chronically Nutritional Appearance: well nourished Orientation/consciousness: oriented to person and oriented to place HENMT: Head: normal to inspection General nose exam: Normal external nose present Face and sinus: normal facial exam Mouth: Yes Normal oral and palatal mucosa present and Yes oropharynx normal Eyes: Pupils: Equal, round and reactive pupils present EOM: EOMs intact bilaterally Neck: Neck: supple and no JVD Thyroid: thyroid
--- NOTE | 2019-10-15 00:26 | ADMGEN ---
This patient, Kristian Tirado, was admitted to IMU Room 205-01. Patient/family oriented to hospital policies and general routines including ID bracelet, bed and alarms, visiting hours, pain management, procedures, bathroom and other care routines, personal items, smoking policy, room service/diet, and visiting hours. Valuables list has been completed. Information on how to activate the Rapid Response Team has been discussed. Patient/Family are encouraged to report perceived risks to care and to ask questions if they do not understand what they are told or what they should do.
[2019-10-15] MEDS: chlordiazePOXIDE 25 MG CAPSULE PO ×5 (00:46→23:10)
[2019-10-15] MEDS: THIAMINE HCL 200 MG/2 ML VIAL 100 MG IV PUSH (08:00)
[2019-10-15 08:58] LABS: Magnesium 1.8 mg/dL (1.6-2.3)
[2019-10-15 08:59] LABS: Alanine Aminotransferase 53 U/L (4-50); Albumin Level 3.9 g/dL (3.5-5.1); Alkaline Phosphatase 156 U/L (38-126); Aspartate Amino Transferase 58 U/L (17-59); Bilirubin,Total 1.5 mg/dL (0.2-1.3); Blood Urea Nitrogen 11 mg/dL (9-20); Calcium 9.2 mg/dL (8.4-10.2); Carbon Dioxide 31 mmol/L (22-30); Chloride 92 mmol/L (98-107); Estimated CRCL calculation 120 ml/min; Estimated Glomerular Filt Rate > 60; Glucose 111 mg/dL (75-110); Potassium 3.4 mmol/L (3.4-5.0); Sodium 134 mmol/L (137-145)
[2019-10-15 09:46] LABS: Hemoglobin A1C 5.5 % (<5.7)
[2019-10-15] MEDS: levETIRAcetam 1000MG/NACL100ML 1,000 MG/100 ML BAG 400 MG IVPB ×2 (11:50→23:10)
[2019-10-15 13:04] LABS: Glucose Point of Care 138 (65-105)
--- NOTE | 2019-10-15 13:30 | NEURO_ITS ---
TEST: ELECTROENCEPHALOGRAM DIAGNOSIS: SEIZURE PATIENT NUMBER: [id number] EEG NUMBER: [id number] RECORDING DATE: 10/15/19 CONDITION OF RECORDING: SLEEPING EEG DESCRIPTION: Basic resting occipital frequency consists of moderate amount of poorly organized low voltage 8-10hz alpha mixed with low voltage 15-18hz beta. During drowsiness low voltage beta activity is seen diffusely mixed with waxing and waning posterior alpha rhythms. Bilateral symmetrical sleep activity is seen during sleep. Hyperventilation and photic stimulation were not done. Nonparoxysmal. Nonfocal. Nonlateralizing. IMPRESSION: Normal record MTDD
[2019-10-15] MEDS: POTASSIUM CHLORIDE 20 MEQ TABLET 40 MEQ PO (14:31)
[2019-10-15] MEDS: MAGNESIUM SULF 2 GM/WATER 50ML 2 GM/50 ML BAG IVPB (14:31)
[2019-10-15 17:23] LABS: Glucose Point of Care 154 (65-105)
--- NOTE | 2019-10-15 18:48 | PM.IMPN ---
Progress Note: A&P Assessment and Plan (1) Withdrawal seizures: Qualifiers: Complication of substance-induced condition: with unspecified complication Qualified Code(s): F19.239 - Other psychoactive substance dependence with withdrawal, unspecified; R56.9 - Unspecified convulsions Code(s): F19.239 - Other psychoactive substance dependence with withdrawal, unspecified; R56.9 - Unspecified convulsions Status: Acute Assessment and Plan: Admit to IMU, telemetry, Seizure precautions. The patient has been loaded with IV Keppra. Aspiration precautions. Neurology has been consulted by ER provider. 10/15/19 18:48 38-year-old male with history of alcohol and seizure patient was brought to the emergency department as he was having seizure apparently patient had not been taking his Keppra, patient was started on IV Keppra and since then patient has not had any seizure, it present time patient states feeling better denies any fever or chills denies any headache, his girlfriend is present in the room, MRI of the brain showed:Chronic encephalomalacia in the central fabiola in a distribution typical of central pontine myelinolysis. Most likely secondary chronic alcohol abuse patient is seen by neurologist EEG pending and further recommendation to follow (2) Abnormal glucose: Code(s): R73.09 - Other abnormal glucose Status: Acute Assessment and Plan: r/o Diabetes mellitus. Check HgbA1c. Consider accuchecks and SSI coverage if the patient continues to be hyperglycemic. (3) Alcohol abuse: Code(s): F10.10 - Alcohol abuse, uncomplicated Status: Chronic Assessment and Plan: CIWA-AR protocol, Thiamine IV, Neurochecks, Lorazepam IV PRN, Librium PO QID. (4) Transaminitis: Code(s): R74.0 - Nonspecific elevation of levels of transaminase and lactic acid dehydrogenase [LDH] Status: Chronic Assessment and Plan: Secondary to known alcoholic hepatitis. Check liver function in am. (5) Peripheral neuropathy: Qualifiers: Peripheral neuropathy type: polyneuropathy, unspecified Qualified Code(s): G62.9 - Polyneuropathy, unspecified Code(s): G62.9 - Polyneuropathy, unspecified Status: Chronic (6) HTN (hypertension): Qualifiers: Hypertension type: unspecified Qualified Code(s): I10 - Essential (primary) hypertension Code(s): I10 - Essential (primary) hypertension Status: Chronic Assessment and Plan: stable. monitor blood pressure. Conitnue amlodipine. (7) COPD (chronic obstructive pulmonary disease): Qualifiers: COPD type: unspecified COPD Qualified Code(s): J44.9 - Chronic obstructive pulmonary disease, unspecified Code(s): J44.9 - Chronic obstructive pulmonary disease, unspecified Status: Chronic Assessment and Plan: Continue bronchodilators PRN. (8) Tobacco dependence: Code(s): F17.200 - Nicotine dependence, unspecified, uncomplicated Status: Chronic Assessment and Plan: I have counseled the patient regarding tobacco cessation for 3 minutes. Subjective Date/time seen: 10/15/19 18:48 38-year-old male with history of alcohol and seizure patient was brought to the emergency department as he was having seizure apparently patient had not been taking his Keppra, patient was started on IV Keppra and since then patient has not had any seizure, it present time patient states feeling better denies any fever or chills denies any headache, his girlfriend is present in the room, MRI of the brain showed:Chronic encephalomalacia in the central fabiola in a distribution typical of central pontine myelinolysis. Most likely secondary chronic alcohol abuse patient is seen by neurologist EEG pending and further recommendation to follow Review of Systems Review of Systems: All systems reviewed & are unremarkable except as noted in HPI and below Exam Narrative: Exam Narrative: Appear
--- NOTE | 2019-10-15 19:28 | CONS_ITS ---
DATE OF CONSULTATION: 10/14/2019 HISTORY OF PRESENT ILLNESS: A 38-year-old right-handed male has been admitted to the hospital with the complaint of seizure disorder in addition to ongoing history of: 1. Alcohol abuse disorder. 2. Alcoholic hepatitis. He was brought to the hospital for the complaints of multiple seizures reportedly at least 5 and also with information that he drank vodka 2 days ago. He was unable to recall any other detail about the history. He does have ongoing history of alcohol abuse with withdrawal seizures, alcoholic hepatitis, pancreatitis, benign prostatic hypertrophy, chronic anemia, COPD, anxiety with depression, hypertension, hypercholesterolemia, hypertriglyceridemia, renal stone, peripheral neuropathy, and tobacco dependence. He has smoked for 10 years, 1 pack per day and is a current everyday smoker and also drinker in addition to use of marijuana. MEDICATIONS: He was takin. Citalopram 20 mg daily. 2. Levetiracetam 500 mg twice a day. 3. Amlodipine 5 mg daily. ALLERGIES: NO KNOWN DRUG ALLERGIES. PHYSICAL EXAMINATION: GENERAL: Revealed him to be awake, alert, cooperative. HEENT: Head normocephalic with no cranial bruit. Ear, nose, throat exam normal. NECK: Supple. No cervical bruit. No thyromegaly. No lymphadenopathy. HEART: Regular with no murmur. LUNGS: Clear with occasional rhonchi. ABDOMEN: Soft with no organomegaly. NEUROLOGIC: Awake, alert, follows the instruction fairly well. Pupils round regular. Jacobs of vision full to a threat stimuli and extraocular movements full with nystagmus. Facial sensation intact. Face symmetrical. Tongue midline. Motor examination revealed decreased strength, but symmetrical. Reflexes sluggish. Plantars are downgoing. There is no evidence of gross cerebellar deficit on [id number]-finger at this stage. LABORATORY DATA: Evaluation up until now CBC with WBC 11.8, hemoglobin 14.3, platelet count 221. Normal basic metabolic panel. Hepatic enzyme with alkaline phos 189, ALT 54, AST 73, total bilirubin 1.6, albumin definitely 4.4. CT scan of the head with encephalomalacia, raising the possible need for the MRI. PLAN: At this stage is to continue the medication as such particularly Librium 25 mg q.6 hours p.r.n. along with thiamine and MRI will be obtained for further delineation. BELA HARRIS M.D. POULTRY CLEANER POULTRY CLEANER D I MT: [facility]
[2019-10-15 20:52] LABS: Glucose Point of Care 112 (65-105)
[2019-10-15] MEDS: NICOTINE (*PBKC) 21 MG PATCH 1 PATCH TRANSDERM (23:04)
[2019-10-16] VITALS (20 sets, daily range): BP systolic 82–115; BP diastolic 54–92; PULSE 77–137; RESP 16–29; TEMP 36.3–37.1; O2SAT 90–99
--- NOTE | 2019-10-16 03:52 | PC.NURSE ---
This patient, Kristian Tirado, was received from [facility] on 10/16/19 at 0020. Report received per Susu Lorenz Patient is disoriented and altered. Unable to comprehend unit orientation.
--- NOTE | 2019-10-16 03:52 | PC.NURSE ---
This patient, Kristian Tirado, was transferred to [ ICU 7] on 10/16/19 at 0035. Personal belongings sent with patient. Belongings list checked and signed with receiving [ ]. Report given to [ Teodora Fischer rn]. Appropriate documentation sent with patient.
[2019-10-16 04:48] LABS: Basophils Absolute Auto 0.1 K/mm3 (0.0-0.1); Basophils Percent Auto 0.5 % (0.2-1.2); Eosinophils Absolute Auto 0.3 K/mm3 (0-0.3); Eosinophils Percent Auto 2.9 % (0-4.4); Hematocrit 41.9 % (42.0-52.0); Hemoglobin 13.9 g/dL (14.0-18.0); Immature Granulocyte Absolute 0.09 K/mm3 (0.00-0.031); Immature Granulocyte Percent A 0.9 % (0-0.5); Lymphocytes Absolute Auto 1.86 K/mm3 (0.9-3.2); Lymphocytes Percent Auto 17.7 % (18.3-44.2); Mean Corpuscular HGB Conc 33.2 g/dl (32-36); Mean Corpuscular Volume 90.3 fl (80-100); Mean Platelet Volume 10.5 fl (7.4-10.4); Monocytes Absolute Auto 0.7 K/mm3 (0.1-0.6); Monocytes Percent Auto 6.8 % (2.6-8.5); Neutrophils Absolute Auto 7.5 K/mm3 (1.3-6.7); Neutrophils Percent Auto 71.2 % (45.5-73.1); Platelet Count Result 169 k/mm3 (150-375); Red Blood Count 4.64 M/mm3 (4.6-6.20); Red Cell Distribution Width 15.1 % (11.5-14.5); White Blood Count 10.5 K/mm3 (4.5-10.0)
[2019-10-16 05:00] LABS: Alanine Aminotransferase 60 U/L (4-50); Albumin Level 3.6 g/dL (3.5-5.1); Alkaline Phosphatase 143 U/L (38-126); Aspartate Amino Transferase 88 U/L (17-59); Bilirubin,Total 1.1 mg/dL (0.2-1.3); Blood Urea Nitrogen 14 mg/dL (9-20); Calcium 8.8 mg/dL (8.4-10.2); Carbon Dioxide 29 mmol/L (22-30); Chloride 97 mmol/L (98-107); Estimated CRCL calculation 107 ml/min; Estimated Glomerular Filt Rate > 60; Glucose 114 mg/dL (75-110); Magnesium 1.9 mg/dL (1.6-2.3); Potassium 3.2 mmol/L (3.4-5.0); Sodium 131 mmol/L (137-145)
[2019-10-16] MEDS: LACTATED RINGERS 1,000 ML 999 ML IV CONT (08:25)
--- NOTE | 2019-10-16 08:59 | WPDCNINT ---
Assessment and Plan Assessment and plan (1) Withdrawal seizures: Qualifiers: Complication of substance-induced condition: with unspecified complication Qualified Code(s): F19.239 - Other psychoactive substance dependence with withdrawal, unspecified; R56.9 - Unspecified convulsions Code(s): F19.239 - Other psychoactive substance dependence with withdrawal, unspecified; R56.9 - Unspecified convulsions Status: Acute Assessment and Plan: Withdrawal seizures with agitation and confusion - transferred to ICU for Precedex infusion - continue Keppra - continue Librium -Appreciate neurolgy evaluation and recommendations - MRI 10/15/2019: Chronic encephalomalacia in the central fabiola in a distribution typical of central pontine myelinolysis. (2) Acute encephalopathy: Code(s): G93.40 - Encephalopathy, unspecified Status: Acute Assessment and Plan: acute encephalopathy likely due to ETOH withdrawal. contine precedex (3) Abnormal glucose: Code(s): R73.09 - Other abnormal glucose Status: Acute Assessment and Plan: abnormal glucose, likely stress related. HbA1C 5.5 continue accuchecks and SSI (4) Transaminitis: Code(s): R74.0 - Nonspecific elevation of levels of transaminase and lactic acid dehydrogenase [LDH] Status: Chronic Assessment and Plan: likely due to Alcoholic hepatitis continue to monitor (5) Tobacco dependence: Code(s): F17.200 - Nicotine dependence, unspecified, uncomplicated Status: Chronic Assessment and Plan: on nicotine patch - will assessment counselor on cessation of tobacco use when pt more awake (6) COPD (chronic obstructive pulmonary disease): Qualifiers: COPD type: unspecified COPD Qualified Code(s): J44.9 - Chronic obstructive pulmonary disease, unspecified Code(s): J44.9 - Chronic obstructive pulmonary disease, unspecified Status: Chronic Assessment and Plan: bronchodilators PRN (7) HTN (hypertension): Qualifiers: Hypertension type: unspecified Qualified Code(s): I10 - Essential (primary) hypertension Code(s): I10 - Essential (primary) hypertension Status: Chronic Assessment and Plan: blood pressures have been stable (8) DVT prophylaxis: Code(s): Z29.9 - Encounter for prophylactic measures, unspecified Status: Acute Assessment and Plan: Ordered SQ Lovenox Additional Plan Will discuss with family Code status: Full code Critical care time spent: 41 minutes Due to a high probability of clinically significant, life threatening deterioration, the patient required my highest level of preparedness to intervene emergently and I personally spent this critical care time directly and personally managing the patient. This critical care time included obtaining a history; examining the patient; pulse oximetry; ordering and review of studies; arranging urgent treatment with development of a management plan; evaluation of patient's response to treatment; frequent reassessment; and discussions with other providers. It was exclusive of separately billable procedures and treating other patients and teaching time. Please see Assessment and Plan section and the rest of the note for further information on patient assessment and treatment Justowriter Operator Consult Note Consult date: 10/16/19 Time Seen: 07:05 HPI: Kristian Tirado is a 38 year old male with PMH of ETOH abuse, ETOH withdrawal seizures, alcoholic hepartitis and pancreatitis, BPH, chronic anemia, depression and anxiety, essential hypertension, hyperlipidemia, kidney stones, peripheral neuropathy presented to the ED on 10/14/2019 with seizures. Pt's girl friend stated that he had multiple seizures, pt admitted that last drink was 2 days prioir to admission. Pt also is on keppra but has not been taking it. medical history obtained from medical records. Pt was on IMU and got agitated and was paci
[2019-10-16] MEDS: LACTATED RINGERS 1,000 ML 100 ML IV CONT ×2 (09:46→18:25)
[2019-10-16] MEDS: NICOTINE (*PBKC) 21 MG PATCH 1 PATCH TRANSDERM (09:48)
[2019-10-16] MEDS: THIAMINE HCL 200 MG/2 ML VIAL 100 MG IV PUSH (09:49)
[2019-10-16] MEDS: ENOXAPARIN 40 MG/0.4 ML SYRINGE SUB-Q (10:30)
[2019-10-16] MEDS: levETIRAcetam 1000MG/NACL100ML 1,000 MG/100 ML BAG 400 MG IVPB ×2 (12:34→23:49)
[2019-10-16] MEDS: chlordiazePOXIDE 25 MG CAPSULE 50 MG PO ×3 (12:35→23:49)
[2019-10-16 13:17] LABS: Glucose Point of Care 122 (65-105)
--- NOTE | 2019-10-16 15:41 | WPDNEUROPN ---
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 Status: Acute (2) Seizure: Code(s): R56.9 - Unspecified convulsions Status: Acute (3) Transaminitis: Code(s): R74.0 - Nonspecific elevation of levels of transaminase and lactic acid dehydrogenase [LDH] Status: Chronic (4) Abnormal glucose: Code(s): R73.09 - Other abnormal glucose Status: Acute (5) Withdrawal seizures: Qualifiers: Complication of substance-induced condition: with unspecified complication Qualified Code(s): F19.239 - Other psychoactive substance dependence with withdrawal, unspecified; R56.9 - Unspecified convulsions Code(s): F19.239 - Other psychoactive substance dependence with withdrawal, unspecified; R56.9 - Unspecified convulsions Status: Acute (6) DVT prophylaxis: Code(s): Z29.9 - Encounter for prophylactic measures, unspecified Status: Acute (7) Rhabdomyolysis: Qualifiers: Rhabdomyolysis type: non-traumatic Qualified Code(s): M62.82 - Rhabdomyolysis Code(s): M62.82 - Rhabdomyolysis Status: Acute (8) Tobacco dependence: Code(s): F17.200 - Nicotine dependence, unspecified, uncomplicated Status: Chronic (9) Peripheral neuropathy: Qualifiers: Peripheral neuropathy type: polyneuropathy, unspecified Qualified Code(s): G62.9 - Polyneuropathy, unspecified Code(s): G62.9 - Polyneuropathy, unspecified Status: Chronic (10) COPD (chronic obstructive pulmonary disease): Qualifiers: COPD type: unspecified COPD Qualified Code(s): J44.9 - Chronic obstructive pulmonary disease, unspecified Code(s): J44.9 - Chronic obstructive pulmonary disease, unspecified Status: Chronic (11) Acute encephalopathy: Code(s): G93.40 - Encephalopathy, unspecified Status: Acute (12) Alcohol abuse: Code(s): F10.10 - Alcohol abuse, uncomplicated Status: Chronic Additional Plan unfortunate as it is the patient continues to drink and he is bound to have seizures even if he is on high dose of any anti convulsant either at the height of the intoxication or withdrawal seizure I discussed with him and also his significant other which I suspect is an enabler, all pros and cons were discussed as he was told by this examiner that the brain is getting damage liver is getting damaged in nervous system is getting damage he finally says and change the course and says he will quit drinking. He needs the counseling and the social Work to help him with his drinking habits rest of the management as Review of Systems Review of Systems: All systems reviewed & are unremarkable except as noted in HPI and below Exam Const: General: comfortable and no acute distress HENMT: General nose exam: Normal nares present Mouth: Yes moist mucous membranes Eyes: General: appearance normal, both eyes and all related structures Neck: Neck: supple and no JVD Resp: Effort & Inspection: normal respiratory effort Auscultation: clear to auscultation bilaterally Cardio: Rate: regular rate Rhythm: regular rhythm GI: Auscultation: normal bowel sounds Skin: General skin exam: normal color and no rashes or lesions noted Neuro: Other: patient is awake alert partially oriented follows all commands without any focal neurological deficit but clearly evidence of peripheral neuropathy with depressed reflexes and negative Babinski sign Extrem: General: normal to inspection Psych: Other: encephalopathic partially oriented Objective Data Vital Signs Vital Signs: Vital Signs - 24 hr 10/15/19 16:00 10/15/19 17:49 10/15/19 19:42 Temperature 36.1 C L 36.8 C Pulse Rate 99 105 H 109 H Pulse Rate [Bilateral Pedal (Dorsalis Pedis) Palpation] Pulse Rate [Monitor] 109 H Respiratory Rate 20 20 Blood Pressure 98/72 L 104/67 Pulse Oximetry 98
--- NOTE | 2019-10-16 16:11 | PM.IMPN ---
Progress Note: A&P Assessment and Plan (1) Withdrawal seizures: Qualifiers: Complication of substance-induced condition: with unspecified complication Qualified Code(s): F19.239 - Other psychoactive substance dependence with withdrawal, unspecified; R56.9 - Unspecified convulsions Code(s): F19.239 - Other psychoactive substance dependence with withdrawal, unspecified; R56.9 - Unspecified convulsions Status: Acute Assessment and Plan: 10/16/19 16:11 Admit to IMU, telemetry, Seizure precautions. The patient has been loaded with IV Keppra. Aspiration precautions. Neurology has been consulted by ER provider. 38-year-old male with history of alcohol and seizure patient was brought to the emergency department as he was having seizure apparently patient had not been taking his Keppra, patient was started on IV Keppra and since then patient has not had any seizure, it present time patient states feeling better denies any fever or chills denies any headache, his girlfriend is present in the room, MRI of the brain showed:Chronic encephalomalacia in the central fabiola in a distribution typical of central pontine myelinolysis. Most likely secondary chronic alcohol abuse patient is seen by neurologist EEG pending and further recommendation to follow, last night patient was agitated and uncooperative he was transferred to ICU for Precedex, currently is on low-dose Precedex, not as agitated, patient also seen by neurologist and had a long discussion with the patient and his girlfriend to please stop drinking as is significant damage the central nervous system as well as hepatic, patient has promised to stop drinking, will continue to monitor patient as his symptoms stabilized may discharge the patient home tomorrow (2) Abnormal glucose: Code(s): R73.09 - Other abnormal glucose Status: Acute Assessment and Plan: r/o Diabetes mellitus. Check HgbA1c. Consider accuchecks and SSI coverage if the patient continues to be hyperglycemic. (3) Alcohol abuse: Code(s): F10.10 - Alcohol abuse, uncomplicated Status: Chronic Assessment and Plan: CIWA-AR protocol, Thiamine IV, Neurochecks, Lorazepam IV PRN, Librium PO QID. (4) Transaminitis: Code(s): R74.0 - Nonspecific elevation of levels of transaminase and lactic acid dehydrogenase [LDH] Status: Chronic Assessment and Plan: Secondary to known alcoholic hepatitis. Check liver function in am. (5) Peripheral neuropathy: Qualifiers: Peripheral neuropathy type: polyneuropathy, unspecified Qualified Code(s): G62.9 - Polyneuropathy, unspecified Code(s): G62.9 - Polyneuropathy, unspecified Status: Chronic (6) HTN (hypertension): Qualifiers: Hypertension type: unspecified Qualified Code(s): I10 - Essential (primary) hypertension Code(s): I10 - Essential (primary) hypertension Status: Chronic Assessment and Plan: stable. monitor blood pressure. Conitnue amlodipine. (7) COPD (chronic obstructive pulmonary disease): Qualifiers: COPD type: unspecified COPD Qualified Code(s): J44.9 - Chronic obstructive pulmonary disease, unspecified Code(s): J44.9 - Chronic obstructive pulmonary disease, unspecified Status: Chronic Assessment and Plan: Continue bronchodilators PRN. (8) Tobacco dependence: Code(s): F17.200 - Nicotine dependence, unspecified, uncomplicated Status: Chronic Assessment and Plan: I have counseled the patient regarding tobacco cessation for 3 minutes. Subjective Date/time seen: 10/16/19 16:11 Admit to IMU, telemetry, Seizure precautions. The patient has been loaded with IV Keppra. Aspiration precautions. Neurology has been consulted by ER provider. 38-year-old male with history of alcohol and seizure patient was brought to the emergency department as he was having seizure apparently patient had not been taking his
[2019-10-16 18:28] LABS: Glucose Point of Care 103 (65-105)
--- NOTE | 2019-10-16 20:51 | PC.NURSE ---
This patient, Kristian Tirado, was transferred to [facility] on 10/16/19 at 2031. Personal belongings sent with patient. Belongings list checked and signed with receiving Araceli. Report given to Araceli NOBLES. Appropriate documentation sent with patient.
[2019-10-16 21:47] LABS: Glucose Point of Care 103 (65-105)
[2019-10-17] VITALS (10 sets, daily range): BP systolic 126–137; BP diastolic 82–88; PULSE 76–109; RESP 18–20; TEMP 36.6–37.3; O2SAT 94–99
[2019-10-17] MEDS: LACTATED RINGERS 1,000 ML 100 ML IV CONT (05:12)
[2019-10-17] MEDS: chlordiazePOXIDE 25 MG CAPSULE 50 MG PO ×2 (05:14→12:34)
[2019-10-17 05:30] LABS: Basophils Percent Auto 0.5 % (0.2-1.2); Eosinophils Absolute Auto 0.4 K/mm3 (0-0.3); Eosinophils Percent Auto 4.1 % (0-4.4); Hematocrit 36.8 % (42.0-52.0); Hemoglobin 12.2 g/dL (14.0-18.0); Immature Granulocyte Percent A 1.1 % (0-0.5); Lymphocytes Absolute Auto 1.46 K/mm3 (0.9-3.2); Lymphocytes Percent Auto 16.7 % (18.3-44.2); Mean Corpuscular HGB Conc 33.2 g/dl (32-36); Mean Corpuscular Hemoglobin 30.5 pg (26-34); Mean Platelet Volume 10.3 fl (7.4-10.4); Monocytes Absolute Auto 0.6 K/mm3 (0.1-0.6); Monocytes Percent Auto 6.4 % (2.6-8.5); Neutrophils Absolute Auto 6.2 K/mm3 (1.3-6.7); Neutrophils Percent Auto 71.2 % (45.5-73.1); Platelet Count Result 142 k/mm3 (150-375); Red Cell Distribution Width 15.2 % (11.5-14.5); White Blood Count 8.7 K/mm3 (4.5-10.0)
[2019-10-17 05:44] LABS: Alanine Aminotransferase 85 U/L (4-50); Albumin Level 2.9 g/dL (3.5-5.1); Alkaline Phosphatase 125 U/L (38-126); Aspartate Amino Transferase 119 U/L (17-59); Bilirubin,Total 0.6 mg/dL (0.2-1.3); Blood Urea Nitrogen 9 mg/dL (9-20); Calcium 8.3 mg/dL (8.4-10.2); Carbon Dioxide 26 mmol/L (22-30); Chloride 101 mmol/L (98-107); Estimated CRCL calculation 120 ml/min; Estimated Glomerular Filt Rate > 60; Glucose 107 mg/dL (75-110); Magnesium 1.5 mg/dL (1.6-2.3); Phosphorus 3.9 mg/dL (2.5-4.5); Potassium 3.7 mmol/L (3.4-5.0); Sodium 131 mmol/L (137-145)
[2019-10-17 07:41] LABS: Glucose Point of Care 115 (65-105)
[2019-10-17] MEDS: MAGNESIUM SULF 2 GM/WATER 50ML 2 GM/50 ML BAG IVPB (08:56)
[2019-10-17] MEDS: POTASSIUM CHLORIDE 20 MEQ TABLET 40 MEQ PO (08:57)
[2019-10-17] MEDS: MAGNESIUM OXIDE 400 MG TABLET PO (09:46)
[2019-10-17] MEDS: THIAMINE HCL 200 MG/2 ML VIAL 100 MG IV PUSH (09:46)
[2019-10-17] MEDS: NICOTINE (*PBKC) 21 MG PATCH 1 PATCH TRANSDERM (09:46)
--- NOTE | 2019-10-17 11:03 | WPDNEUROPN ---
Objective Data Vital Signs Vital Signs: Vital Signs - 24 hr 10/16/19 12:00 10/16/19 13:00 10/16/19 14:00 Temperature 36.6 C 37.1 C Pulse Rate 80 92 94 Pulse Rate [Bilateral Pedal (Dorsalis Pedis) Palpation] 80 Pulse Rate [Monitor] Respiratory Rate 20 16 Blood Pressure 111/90 92/66 L Pulse Oximetry 90 93 10/16/19 16:00 10/16/19 16:23 10/16/19 18:00 Temperature 36.6 C Pulse Rate 97 94 130 H Pulse Rate [Bilateral Pedal (Dorsalis Pedis) Palpation] 92 Pulse Rate [Monitor] Respiratory Rate 18 18 Blood Pressure 110/88 109/87 Pulse Oximetry 93 94 10/16/19 20:00 10/16/19 20:57 10/17/19 00:00 Temperature 36.6 C 36.8 C 36.6 C Pulse Rate 103 H 102 H 101 H Pulse Rate [Bilateral Pedal (Dorsalis Pedis) Palpation] Pulse Rate [Monitor] 102 H Respiratory Rate 29 H 22 H 20 Blood Pressure 107/72 112/75 126/87 Pulse Oximetry 95 99 97 10/17/19 04:00 10/17/19 08:00 10/17/19 10:00 Temperature 36.6 C 37.1 C Pulse Rate 91 108 H 83 Pulse Rate [Bilateral Pedal (Dorsalis Pedis) Palpation] Pulse Rate [Monitor] Respiratory Rate 20 18 Blood Pressure 131/84 127/83 Pulse Oximetry 98 94 Intake/Output Intake/Output: Intake & Output 10/14/19 10/15/19 10/16/19 10/17/19 23:59 23:59 23:59 23:59 Intake Total 830 3176.2 1490 Output Total 200 500 200 Balance 630 2676.2 1290 Meds/Results Medications: Active Medications Generic Name Dose Route Start Last Admin Trade Name Freq PRN Reason Stop Dose Admin Acetaminophen 650 mg 10/15/19 00:06 Tylenol Tablet PO Q4H PRN Mild Pain (1-3) or Fever Chlordiazepoxide HCl 50 mg 10/16/19 12:00 10/17/19 05:14 Librium Po PO 50 mg Q6HR HAYDEN Administration Enoxaparin Sodium 40 mg 10/16/19 09:40 10/16/19 10:30 Lovenox SUB-Q 40 mg DAILY HAYDEN Administration Levetiracetam 1,000 mg in 100 mls @ 400 mls/hr 10/15/19 00:00 10/17/19 00:04 Keppra Iv IVPB Infused Q12H HAYDEN Infusion Lactated Ringer's 1,000 mls @ 100 mls/hr 10/16/19 07:50 10/17/19 05:12 Lr - Lactated Ringers Iv IV CONT 100 mls/hr .Q10H HAYDEN Administration Lorazepam 1 mg 10/15/19 00:06 10/16/19 18:38 Ativan Inj IV PUSH 1 mg Q4H PRN Administration Withdrawal Magnesium Oxide 400 mg 10/17/19 09:00 10/17/19 09:46 Mag-Ox PO 400 mg QAM HAYDEN Administration Nicotine 1 patch 10/15/19 22:50 10/17/19 09:46 Nicoderm Cq 21 Mg TRANSDERM 1 patch QAM HAYDEN Administration Thiamine HCl 100 mg 10/15/19 09:00 10/17/19 09:46 Thiamine Hcl Inj IV PUSH 100 mg DAILY HAYDEN Administration Radiology Results: ITS Impressions Head CT 10/14/19 21:06 IMPRESSION: Consider MRI of the brain for more definitive evaluation of possible encephalomalacia the lungs versus beam hardening artifact Greater than expected cerebral atrophy Brain MRI 10/15/19 11:13 IMPRESSION: 1. Chronic encephalomalacia in the central fabiola in a distribution typical of central pontine myelinolysis. Labs Labs: Laboratory Results - last 24 hr 10/16/19 10/16/19 10/16/19 13:15 18:26 21:43 WBC RBC Hgb Hct MCV MCH MCHC RDW Plt Count MPV Immature Gran % (Auto) Neut % (Auto) Lymph % (Auto) [place] % (Auto) Eos % (Auto) Baso % (Auto) Lymph # (Auto) [place] # (Auto) Eos # (Auto) Baso # (Auto) Abs Immat Gran (auto) Absolute Neuts (auto) Absolute Nucleated RBC Nucleated RBC % Sodium Potassium Chloride Carbon Dioxide BUN Creatinine Estim Creat Clear Calc Estimated GFR Glucose POC Capillary Glucose 122 H 103 103 Calcium Phosphorus Magnesium Total Bilirubin AST ALT Alkaline Phosphatase Total Protein Albumin 10/17/19 10/17/19 10/17/19 05:14 05:14 07:38 WBC 8.7 RBC 4.00 L Hgb 12.2 L Hct 36.8 L MCV 92.0 MCH 30.5 MCHC 33.2 RDW 15.2 H Plt Count 142 L MPV
--- NOTE | 2019-10-17 12:10 | PM.IMPN ---
Progress Note: A&P Assessment and Plan (1) Withdrawal seizures: Qualifiers: Complication of substance-induced condition: with unspecified complication Qualified Code(s): F19.239 - Other psychoactive substance dependence with withdrawal, unspecified; R56.9 - Unspecified convulsions Code(s): F19.239 - Other psychoactive substance dependence with withdrawal, unspecified; R56.9 - Unspecified convulsions Status: Acute Assessment and Plan: Admit to IMU, telemetry, Seizure precautions. The patient has been loaded with IV Keppra. Aspiration precautions. Neurology has been consulted by ER provider. 38-year-old male with history of alcohol and seizure patient was brought to the emergency department as he was having seizure apparently patient had not been taking his Keppra, patient was started on IV Keppra and since then patient has not had any seizure, it present time patient states feeling better denies any fever or chills denies any headache, his girlfriend is present in the room, MRI of the brain showed:Chronic encephalomalacia in the central fabiola in a distribution typical of central pontine myelinolysis. Most likely secondary chronic alcohol abuse patient is seen by neurologist EEG pending and further recommendation to follow, last night patient was agitated and uncooperative he was transferred to ICU for Precedex, was on low-dose Precedex, was not as agitated, patient also seen by neurologist and had a long discussion with the patient and his girlfriend to please stop drinking as is significant damage the central nervous system as well as hepatic, patient has promised to stop drinking, today patient is more calm and off Precedex out of ICU his clinically stable will continue to monitor patient 1 more day and possibly discharge him tomorrow. (2) Abnormal glucose: Code(s): R73.09 - Other abnormal glucose Status: Acute Assessment and Plan: r/o Diabetes mellitus. Check HgbA1c. Consider accuchecks and SSI coverage if the patient continues to be hyperglycemic. (3) Alcohol abuse: Code(s): F10.10 - Alcohol abuse, uncomplicated Status: Chronic Assessment and Plan: CIWA-AR protocol, Thiamine IV, Neurochecks, Lorazepam IV PRN, Librium PO QID. (4) Transaminitis: Code(s): R74.0 - Nonspecific elevation of levels of transaminase and lactic acid dehydrogenase [LDH] Status: Chronic Assessment and Plan: Secondary to known alcoholic hepatitis. Check liver function in am. (5) Peripheral neuropathy: Qualifiers: Peripheral neuropathy type: polyneuropathy, unspecified Qualified Code(s): G62.9 - Polyneuropathy, unspecified Code(s): G62.9 - Polyneuropathy, unspecified Status: Chronic (6) HTN (hypertension): Qualifiers: Hypertension type: unspecified Qualified Code(s): I10 - Essential (primary) hypertension Code(s): I10 - Essential (primary) hypertension Status: Chronic Assessment and Plan: stable. monitor blood pressure. Conitnue amlodipine. (7) COPD (chronic obstructive pulmonary disease): Qualifiers: COPD type: unspecified COPD Qualified Code(s): J44.9 - Chronic obstructive pulmonary disease, unspecified Code(s): J44.9 - Chronic obstructive pulmonary disease, unspecified Status: Chronic Assessment and Plan: Continue bronchodilators PRN. (8) Tobacco dependence: Code(s): F17.200 - Nicotine dependence, unspecified, uncomplicated Status: Chronic Assessment and Plan: I have counseled the patient regarding tobacco cessation for 3 minutes. Subjective Date/time seen: 10/17/19 12:10 Interval history: Admit to IMU, telemetry, Seizure precautions. The patient has been loaded with IV Keppra. Aspiration precautions. Neurology has been consulted by ER provider. 38-year-old male with history of alcohol and seizure patient was brought to the emergency department as he was ogden
[2019-10-17 12:14] LABS: Glucose Point of Care 100 (65-105)
[2019-10-17] MEDS: ENOXAPARIN 40 MG/0.4 ML SYRINGE SUB-Q (12:34)
--- NOTE | 2019-10-17 13:43 | WPDNEUROPN ---
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 Status: Acute (2) Seizure: Code(s): R56.9 - Unspecified convulsions Status: Acute (3) Tobacco dependence: Code(s): F17.200 - Nicotine dependence, unspecified, uncomplicated Status: Chronic (4) COPD (chronic obstructive pulmonary disease): Qualifiers: COPD type: unspecified COPD Qualified Code(s): J44.9 - Chronic obstructive pulmonary disease, unspecified Code(s): J44.9 - Chronic obstructive pulmonary disease, unspecified Status: Chronic (5) Transaminitis: Code(s): R74.0 - Nonspecific elevation of levels of transaminase and lactic acid dehydrogenase [LDH] Status: Chronic (6) Abnormal glucose: Code(s): R73.09 - Other abnormal glucose Status: Acute (7) Withdrawal seizures: Qualifiers: Complication of substance-induced condition: with unspecified complication Qualified Code(s): F19.239 - Other psychoactive substance dependence with withdrawal, unspecified; R56.9 - Unspecified convulsions Code(s): F19.239 - Other psychoactive substance dependence with withdrawal, unspecified; R56.9 - Unspecified convulsions Status: Acute (8) HTN (hypertension): Qualifiers: Hypertension type: unspecified Qualified Code(s): I10 - Essential (primary) hypertension Code(s): I10 - Essential (primary) hypertension Status: Chronic (9) Seizure disorder: Code(s): G40.909 - Epilepsy, unspecified, not intractable, without status epilepticus Status: Acute (10) Elevated LFTs: Code(s): R79.89 - Other specified abnormal findings of blood chemistry Status: Acute (11) Peripheral neuropathy: Qualifiers: Peripheral neuropathy type: polyneuropathy, unspecified Qualified Code(s): G62.9 - Polyneuropathy, unspecified Code(s): G62.9 - Polyneuropathy, unspecified Status: Chronic Additional Plan continue present medical management he will need big time help for his drinking and counseling he says he is not going to drink anymore but I sincerely doubt that he will be able to do it on his own Review of Systems Review of Systems: All systems reviewed & are unremarkable except as noted in HPI and below Exam Const: General: comfortable and no acute distress HENMT: General nose exam: Normal nares present Mouth: Yes moist mucous membranes Eyes: General: appearance normal, both eyes and all related structures Neck: Neck: supple and no JVD Resp: Effort & Inspection: normal respiratory effort Auscultation: clear to auscultation bilaterally Cardio: Rate: regular rate Rhythm: regular rhythm GI: Auscultation: normal bowel sounds Neuro: Other: patient's encephalopathic state is clearly getting better he is much more lucid does not have any focal motor lateralizing deficit but clearly has evidence of peripheral neuropathy and until a less stops drinking his neurological status will continue to deteriorate Extrem: General: normal to inspection Other: evidence of peripheral neuropathy Psych: Other: improving encephalopathy Objective Data Vital Signs Vital Signs: Vital Signs - 24 hr 10/16/19 14:00 10/16/19 16:00 10/16/19 16:23 Temperature 37.1 C 36.6 C Pulse Rate 94 97 94 Pulse Rate [Bilateral Pedal (Dorsalis Pedis) Palpation] 92 Pulse Rate [Monitor] Respiratory Rate 16 18 Blood Pressure 92/66 L 110/88 Pulse Oximetry 93 93 10/16/19 18:00 10/16/19 20:00 10/16/19 20:57 Temperature 36.6 C 36.8 C Pulse Rate 130 H 103 H 102 H Pulse Rate [Bilateral Pedal (Dorsalis Pedis) Palpation] Pulse Rate [Monitor] 102 H Respiratory Rate 18 29 H 22 H Blood Pressure 109/87 107/72 112/75 Pulse Oximetry 94 95 99 10/17/19 00:00 10/17/19 04:00 10/17/19 08:00 Temperature 36.6 C 36.6 C Pulse Rate 101 H 91 108 H Pulse Rate [Bilateral Pedal (
[2019-10-17] MEDS: levETIRAcetam 500 MG TABLET 1000 MG PO ×2 (14:45→20:45)
[2019-10-17 16:25] LABS: Glucose Point of Care 127 (65-105)
[2019-10-17] MEDS: chlordiazePOXIDE 25 MG CAPSULE PO (17:40)
[2019-10-17 21:47] LABS: Glucose Point of Care 157 (65-105)
[2019-10-17] MEDS: LORazepam 1 MG TABLET PO (22:13)
[2019-10-18] VITALS (8 sets, daily range): BP systolic 109–134; BP diastolic 72–89; PULSE 77–100; RESP 16; TEMP 36.3–36.8; O2SAT 96–98
[2019-10-18] MEDS: chlordiazePOXIDE 25 MG CAPSULE PO ×2 (05:52→12:25)
[2019-10-18 06:09] LABS: Hematocrit 37.8 % (42.0-52.0); Hemoglobin 12.5 g/dL (14.0-18.0); Immature Platelet Fraction Pct 5.7 % (0.9-11.2); Mean Corpuscular HGB Conc 33.1 g/dl (32-36); Mean Corpuscular Hemoglobin 30.8 pg (26-34); Mean Corpuscular Volume 93.1 fl (80-100); Mean Platelet Volume 10.8 fl (7.4-10.4); Platelet Count Result 133 k/mm3 (150-375); Red Blood Count 4.06 M/mm3 (4.6-6.20); Red Cell Distribution Width 15.2 % (11.5-14.5); White Blood Count 8.5 K/mm3 (4.5-10.0)
[2019-10-18 06:23] LABS: Alanine Aminotransferase 143 U/L (4-50); Albumin Level 3.2 g/dL (3.5-5.1); Alkaline Phosphatase 138 U/L (38-126); Aspartate Amino Transferase 160 U/L (17-59); Bilirubin,Total 0.5 mg/dL (0.2-1.3); Blood Urea Nitrogen 9 mg/dL (9-20); Calcium 8.7 mg/dL (8.4-10.2); Carbon Dioxide 25 mmol/L (22-30); Chloride 102 mmol/L (98-107); Estimated CRCL calculation 120 ml/min; Estimated Glomerular Filt Rate > 60; Glucose 99 mg/dL (75-110); Magnesium 1.8 mg/dL (1.6-2.3); Potassium 3.9 mmol/L (3.4-5.0); Sodium 133 mmol/L (137-145)
[2019-10-18] MEDS: levETIRAcetam 500 MG TABLET 1000 MG PO (08:00)
[2019-10-18] MEDS: NICOTINE (*PBKC) 21 MG PATCH 1 PATCH TRANSDERM (08:01)
[2019-10-18] MEDS: ENOXAPARIN 40 MG/0.4 ML SYRINGE SUB-Q (08:01)
[2019-10-18] MEDS: MAGNESIUM OXIDE 400 MG TABLET PO (08:01)
[2019-10-18 08:43] LABS: Glucose Point of Care 115 (65-105)
[2019-10-18] MEDS: THIAMINE HCL 100 MG TABLET PO (08:58)
[2019-10-18 12:10] LABS: Glucose Point of Care 99 (65-105)
--- NOTE | 2019-10-18 12:54 | WPDNEUROPN ---
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 Status: Acute (2) Seizure: Code(s): R56.9 - Unspecified convulsions Status: Acute (3) Tobacco dependence: Code(s): F17.200 - Nicotine dependence, unspecified, uncomplicated Status: Chronic (4) COPD (chronic obstructive pulmonary disease): Qualifiers: COPD type: unspecified COPD Qualified Code(s): J44.9 - Chronic obstructive pulmonary disease, unspecified Code(s): J44.9 - Chronic obstructive pulmonary disease, unspecified Status: Chronic (5) Transaminitis: Code(s): R74.0 - Nonspecific elevation of levels of transaminase and lactic acid dehydrogenase [LDH] Status: Chronic (6) Withdrawal seizures: Qualifiers: Complication of substance-induced condition: with unspecified complication Qualified Code(s): F19.239 - Other psychoactive substance dependence with withdrawal, unspecified; R56.9 - Unspecified convulsions Code(s): F19.239 - Other psychoactive substance dependence with withdrawal, unspecified; R56.9 - Unspecified convulsions Status: Acute (7) Abnormal glucose: Code(s): R73.09 - Other abnormal glucose Status: Acute (8) HTN (hypertension): Qualifiers: Hypertension type: unspecified Qualified Code(s): I10 - Essential (primary) hypertension Code(s): I10 - Essential (primary) hypertension Status: Chronic (9) Seizure disorder: Code(s): G40.909 - Epilepsy, unspecified, not intractable, without status epilepticus Status: Acute (10) DVT prophylaxis: Code(s): Z29.9 - Encounter for prophylactic measures, unspecified Status: Acute (11) Elevated LFTs: Code(s): R79.89 - Other specified abnormal findings of blood chemistry Status: Acute (12) Peripheral neuropathy: Qualifiers: Peripheral neuropathy type: polyneuropathy, unspecified Qualified Code(s): G62.9 - Polyneuropathy, unspecified Code(s): G62.9 - Polyneuropathy, unspecified Status: Chronic (13) Rhabdomyolysis: Qualifiers: Rhabdomyolysis type: non-traumatic Qualified Code(s): M62.82 - Rhabdomyolysis Code(s): M62.82 - Rhabdomyolysis Status: Acute (14) Acute encephalopathy: Code(s): G93.40 - Encephalopathy, unspecified Status: Acute (15) Alcohol abuse: Code(s): F10.10 - Alcohol abuse, uncomplicated Status: Chronic (16) Hypokalemia: Code(s): E87.6 - Hypokalemia Status: Acute Additional Plan continues as such Review of Systems Review of Systems: All systems reviewed & are unremarkable except as noted in HPI and below Exam Const: General: cooperative, comfortable and no acute distress Nutritional Appearance: overweight HENMT: Head: normal to inspection Ears: hearing grossly normal bilaterally Eyes: General: appearance normal, both eyes and all related structures Eyelids: eyelids normal Conjunctivae: conjunctivae normal Sclera: sclerae normal Cornea: corneas normal Pupils: Equal, round and reactive pupils present EOM: EOMs intact bilaterally Neck: Neck: full ROM and no lymphadenopathy Resp: Effort & Inspection: normal respiratory effort Auscultation: clear to auscultation bilaterally Cardio: Rate: regular rate GI: Auscultation: normoactive bowel sounds Skin: General skin exam: no rashes or lesions noted Neuro: General: oriented to person, oriented to place and moves all extremities Cranial nerves: Yes Equal, round and reactive pupils present, Yes Bilaterally intact EOM present, Yes Nystagmus not present, Yes Normal facial strength present, Yes Midline tongue present, Yes Ability to bilaterally rotate head present and Yes Ability to bilaterally elevate shoulders present Speech: normal speech Motor exam (neuro): Abnormal motor strength present (decreased) Sensory Exam: S
--- NOTE | 2019-10-18 13:31 | PM.DS ---
DS: Admitting Diagnosis Admitting Diagnosis Admitting Diagnosis: Other psychoactive substance dependence with withdrawal, unspecified DS: Discharge Diagnosis Discharge Diagnosis (1) Withdrawal seizures: Qualifiers: Complication of substance-induced condition: with unspecified complication Qualified Code(s): F19.239 - Other psychoactive substance dependence with withdrawal, unspecified; R56.9 - Unspecified convulsions Code(s): F19.239 - Other psychoactive substance dependence with withdrawal, unspecified; R56.9 - Unspecified convulsions Status: Acute Assessment and Plan: Admit to IMU, telemetry, Seizure precautions. The patient has been loaded with IV Keppra. Aspiration precautions. Neurology has been consulted by ER provider. 38-year-old male with history of alcohol and seizure patient was brought to the emergency department as he was having seizure apparently patient had not been taking his Keppra, patient was started on IV Keppra and since then patient has not had any seizure, it present time patient states feeling better denies any fever or chills denies any headache, his girlfriend is present in the room, MRI of the brain showed:Chronic encephalomalacia in the central fabiola in a distribution typical of central pontine myelinolysis. Most likely secondary chronic alcohol abuse patient is seen by neurologist EEG pending and further recommendation to follow, last night patient was agitated and uncooperative he was transferred to ICU for Precedex, was on low-dose Precedex, was not as agitated, patient also seen by neurologist and had a long discussion with the patient and his girlfriend to please stop drinking as is significant damage the central nervous system as well as hepatic, patient has promised to stop drinking, today patient is more calm and off Precedex out of ICU his clinically stable will continue to monitor patient 1 more day and possibly discharge him tomorrow. (2) Abnormal glucose: Code(s): R73.09 - Other abnormal glucose Status: Acute Assessment and Plan: r/o Diabetes mellitus. Check HgbA1c. Consider accuchecks and SSI coverage if the patient continues to be hyperglycemic. (3) Alcohol abuse: Code(s): F10.10 - Alcohol abuse, uncomplicated Status: Chronic Assessment and Plan: CIWA-AR protocol, Thiamine IV, Neurochecks, Lorazepam IV PRN, Librium PO QID. (4) Transaminitis: Code(s): R74.0 - Nonspecific elevation of levels of transaminase and lactic acid dehydrogenase [LDH] Status: Chronic Assessment and Plan: Secondary to known alcoholic hepatitis. Check liver function in am. (5) Peripheral neuropathy: Qualifiers: Peripheral neuropathy type: polyneuropathy, unspecified Qualified Code(s): G62.9 - Polyneuropathy, unspecified Code(s): G62.9 - Polyneuropathy, unspecified Status: Chronic (6) HTN (hypertension): Qualifiers: Hypertension type: unspecified Qualified Code(s): I10 - Essential (primary) hypertension Code(s): I10 - Essential (primary) hypertension Status: Chronic Assessment and Plan: stable. monitor blood pressure. Conitnue amlodipine. (7) COPD (chronic obstructive pulmonary disease): Qualifiers: COPD type: unspecified COPD Qualified Code(s): J44.9 - Chronic obstructive pulmonary disease, unspecified Code(s): J44.9 - Chronic obstructive pulmonary disease, unspecified Status: Chronic Assessment and Plan: Continue bronchodilators PRN. (8) Tobacco dependence: Code(s): F17.200 - Nicotine dependence, unspecified, uncomplicated Status: Chronic Assessment and Plan: I have counseled the patient regarding tobacco cessation for 3 minutes. DS: Summary Hospital Course Reason for hospitalization: This is a 38 year old male with known alcohol abuse disorder and alcoholic hepatitis who was brought the to the hospital for m
--- NOTE | 2019-10-18 15:00 | PC.NURSE ---
I called Dr. Martinez and he is okay for patient to be discharged and follow up with neurology outpatient.
== END 2019-10-18 15:00 | disposition home or self-care (01) | DRG 775 ==
LOC: ANHED 22:02 → ANHIMU 22:53 → ANHICU 10-16 00:37 → ANH2MED 10-17 10:14 → ANHICU 10-22 13:47
PROVIDERS: Internal Medicine; Admitting Provider Family Medicine; Emergency Provider Emergency Medicine; PCP Family Medicine; Visit Provider Family Medicine
DX: F19.239 Other psychoactive substance dependence with withdrawal, unspecified (principal); F10.188 Alcohol abuse with other alcohol-induced disorder; T42.6X6A Underdosing of other antiepileptic and sedative-hypnotic drugs, initial encounter; I10 Essential (primary) hypertension; J44.9 Chronic obstructive pulmonary disease, unspecified; F17.210 Nicotine dependence, cigarettes, uncomplicated; R74.0 Nonspecific elevation of levels of transaminase and lactic acid dehydrogenase [LDH]; R73.09 Other abnormal glucose; G62.9 Polyneuropathy, unspecified; G40.909 Epilepsy, unspecified, not intractable, without status epilepticus; Z91.128 Patient's intentional underdosing of medication regimen for other reason; G37.2 Central pontine myelinolysis; G31.2 Degeneration of nervous system due to alcohol; F12.90 Cannabis use, unspecified, uncomplicated
CPT/HCPCS: 36415; 70450; 70553; 80053; 80307; 83036; 83735; 84100; 85025; 85027; 85055; 95816; 96365; 96367; 96372; 96374; 96375; 96376; 97161; 99285; A9270; A9577; G0378; G0379; J1650; J1953; J2060; J3411; J3475; J3480; J7120

== ENCOUNTER 2019-11-11 16:39 | Emergency (ER) | payer OTHER, SELFPAY ==
--- NOTE | ~2019-11-11 | XR_ITS ---
[XR ribs LT 2V w CXR 2V ] INDICATION: Left anterior lower rib pain TECHNIQUE: Frontal projection of the upper left ribs, frontal projection of the lower left ribs, obli que projection of all the left ribs, frontal inspiratory chest x-ray for interpretation. FINDINGS: There are no displaced rib fractures identified. There are no soft tissue abnormality see n. The lungs are clear. There are healed bilateral rib fractures. 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 IMPRESSION: 1:No acute displaced rib fractures. Reviewed, dictated and finalized at location A.
[2019-11-11 16:45] VITALS: BP 155/93; PULSE 82; RESP 20; TEMP 36.8; O2SAT 96
[2019-11-11 16:50] VITALS: PULSE 98; O2SAT 97
[2019-11-11 17:05] LABS: Basophils Percent Auto 0.3 % (0.2-1.2); Eosinophils Absolute Auto 0.1 K/mm3 (0-0.3); Eosinophils Percent Auto 0.5 % (0-4.4); Hematocrit 43.3 % (42.0-52.0); Hemoglobin 14.8 g/dL (14.0-18.0); Immature Granulocyte Absolute 0.05 K/mm3 (0.00-0.031); Immature Granulocyte Percent A 0.5 % (0-0.5); Lymphocytes Absolute Auto 0.68 K/mm3 (0.9-3.2); Lymphocytes Percent Auto 6.2 % (18.3-44.2); Mean Corpuscular HGB Conc 34.2 g/dl (32-36); Mean Corpuscular Hemoglobin 30.5 pg (26-34); Mean Corpuscular Volume 89.3 fl (80-100); Mean Platelet Volume 10.7 fl (7.4-10.4); Monocytes Absolute Auto 0.8 K/mm3 (0.1-0.6); Monocytes Percent Auto 6.9 % (2.6-8.5); Neutrophils Absolute Auto 9.5 K/mm3 (1.3-6.7); Neutrophils Percent Auto 85.6 % (45.5-73.1); Platelet Count Result 175 k/mm3 (150-375); Red Blood Count 4.85 M/mm3 (4.6-6.20); Red Cell Distribution Width 14.6 % (11.5-14.5); White Blood Count 11.1 K/mm3 (4.5-10.0)
[2019-11-11 17:16] LABS: Alanine Aminotransferase 125 U/L (4-50); Albumin Level 4.3 g/dL (3.5-5.1); Alkaline Phosphatase 218 U/L (38-126); Anion Gap 19.6 mmol/L (7-16); Aspartate Amino Transferase 126 U/L (17-59); Bilirubin,Total 1.4 mg/dL (0.2-1.3); Blood Urea Nitrogen 9 mg/dL (9-20); Calcium 9.5 mg/dL (8.4-10.2); Carbon Dioxide 21 mmol/L (22-30); Chloride 91 mmol/L (98-107); Estimated CRCL calculation 111 ml/min; Estimated Glomerular Filt Rate > 60; Glucose 149 mg/dL (75-110); Lipase 665 U/L (23-300); Potassium 3.6 mmol/L (3.4-5.0); Sodium 128 mmol/L (137-145)
[2019-11-11] MEDS: levETIRAcetam 1000MG/NACL100ML 1,000 MG/100 ML BAG 400 MG IVPB (18:18)
[2019-11-11] MEDS: MORPHINE SULFATE 2 MG/ML INJ IV PUSH (18:18)
[2019-11-11 18:21] VITALS: BP 121/79; PULSE 122; RESP 18; O2SAT 98
[2019-11-11] MEDS: ONDANSETRON INJ 4 MG/2 ML VIAL IV PUSH (18:31)
[2019-11-11 19:03] VITALS: BP 130/96; PULSE 93; RESP 18; O2SAT 98
--- NOTE | 2019-11-11 19:21 | ED.SEIZURE ---
HPI - Seizure General Chief Complaint: Seizure Stated Complaint: sz/abd pain Time Seen by Provider: 11/11/19 16:47 Source: patient Mode of arrival: EMS Limitations: no limitations History of Present Illness HPI Narrative: 39-year-old with a history of alcohol abuse, seizure disorder here with complaints of having seizure prior to coming to the arrival. Patient states that his also having alcohol withdrawals. Patient states that he has not taken his Keppra for last several days. Also complains of left-sided chest pain not quite sure whether he fell. He states that hurts to take a deep breath. He denies any fever, cough or shortness of breath. complaint: seizure Witnessed: Yes - by Bystander Trauma: No Place: home Possible Precipitating Event: alcohol withdrawal and other (Medication noncompliance) Associated symptoms: chest pain Related Data Home Medications Medication Instructions Recorded Confirmed citalopram 20 mg PO DAILY 08/03/19 10/15/19 Allergies Allergy/AdvReac Type Severity Reaction Status Date / Time No Known Allergies Allergy Unknown Verified 11/11/19 16:53 Review of Systems Review of Systems: All systems reviewed & are unremarkable except as noted in HPI and below Constitutional: Constitutional: Reports no additional constitutional complaints Eyes: Eyes: Reports as per HPI ENT: Reports system reviewed and no additional complaints, except as documented Cardiovascular: Cardiovascular: Reports no additional cardiovascular complaints Respiratory: Respiratory: Reports as per HPI Gastrointestinal: Gastrointestinal: Reports no additional gastrointestinal complaints Musculoskeletal: Musculoskeletal: Reports no additional musculoskeletal complaints Neurologic: Reports system reviewed and no additional complaints, except as documented Psychiatric: Psychiatric: Reports no additional psychiatric complaints Endocrine: Endocrine: Reports no additional endocrine complaints [facility] Past Medical History Medical History Alcohol abuse Alcohol withdrawal seizure Alcoholic hepatitis Alcoholic pancreatitis BPH (benign prostatic hyperplasia) Central pontine myelinolysis Chronic anemia With labs consistent with anemia of chronic disease COPD (chronic obstructive pulmonary disease) Depression with anxiety Essential hypertension Hypercholesterolemia Cholesterol 490 15 April 2018 Hypertriglyceridemia Triglycerides 270 18 April 2018 Kidney stones Peripheral neuropathy Tobacco dependence Surgical History Surgical History No significant past surgical history Family History Family History Mother COPD (chronic obstructive pulmonary disease) Breast cancer Hypertension Seizures Diabetes mellitus Father Diabetes mellitus Parkinsons disease Lewy body dementia Social History Social History Social History: He has 3 children. According to prior H&Ps the patient consumed at least a 5th of gin or vodka a day. Smoking packs per day: 1 Smoking cigarettes per day: 20.0 Years smoked: 10 Smoking pack-years: 10.00 Smoking status: Current every day smoker Tobacco type: cigarettes Alcohol intake: current Substance use: current Substance use type: marijuana Gender identity (if verbalized by the patient): Male Spiritual care concerns: No Agree to blood products: Yes Exam Narrative: Exam Narrative: GENERAL: Well-appearing, well-nourished, and in no acute distress. HEAD: Normocephalic, atraumatic. EYES: PERRLA and EOMI. ENT: Nares clear, no rhinorrhea or epistaxis. Mucous membranes moist. NECK: Supple. CHEST: Clear to auscultation. No respiratory distress. chest wall tenderness on the left on palpation HEART: Regular rate and rhythm. No murmur heard. Normal
[2019-11-11 19:28] VITALS: BP 138/88; PULSE 80; RESP 19; TEMP 36.3; O2SAT 100
== END 2019-11-11 19:29 | disposition home or self-care (01) ==
PROVIDERS: Emergency Provider Family Medicine; PCP Family Medicine
DX: G40.909 Epilepsy, unspecified, not intractable, without status epilepticus (principal); Z91.14 Patient's other noncompliance with medication regimen; R07.89 Other chest pain; F10.20 Alcohol dependence, uncomplicated; J44.9 Chronic obstructive pulmonary disease, unspecified; I10 Essential (primary) hypertension; E78.00 Pure hypercholesterolemia, unspecified; E78.1 Pure hyperglyceridemia; Z87.442 Personal history of urinary calculi; K70.10 Alcoholic hepatitis without ascites; N40.0 Benign prostatic hyperplasia without lower urinary tract symptoms; G62.9 Polyneuropathy, unspecified; F17.210 Nicotine dependence, cigarettes, uncomplicated
CPT/HCPCS: 36415; 71046; 71100; 80053; 83690; 85025; 96361; 96374; 96375; 99284; J1953; J2270; J2405

== ENCOUNTER 2019-11-14 09:18 | Emergency (ER) | payer OTHER, SELFPAY ==
[2019-11-14] VITALS (8 sets, daily range): BP systolic 131–158; BP diastolic 94–105; PULSE 74–123; RESP 18–26; TEMP 37.2; O2SAT 94–100
--- NOTE | ~2019-11-14 | CT_ITS ---
EXAMINATION: CT brain wo con INDICATION: Seizure, head injury COMPARISON: 10/14/2019 TECHNIQUE: Standard unenhanced head CT. The dose-length product (DLP) was 605.33 mGy-cm. The mA was a djusted according to patient size. Iterative reconstruction technique was employed. FINDINGS: There is no intracranial hemorrhage, acute infarction, or abnormal mass lesion. There is a chronic and unchanged area of central low attenuation in the fabiola, consistent with central pontine my elinolysis. The ventricles are normal. There is no abnormal mass effect or midline shift. The taylor-wh ite matter differentiation is normal. The basal cisterns are patent. The orbits are normal. The paran baylee sinuses, mastoids and calvarium are normal. IMPRESSION: 1. No acute intracranial abnormality. 2. Chronic and unchanged central low attenuation in the fabiola, consistent with central pontine myelino lysis. Reviewed, dictated and finalized at location A. IMPRESSION: 1. No acute intracranial abnormality. 2. Chronic and unchanged central low attenuation in the fabiola, consistent with c entral pontine myelinolysis.
--- NOTE | 2019-11-14 09:32 | ECG_ITS ---
Measurements Intervals [place] Rate: 114 P: 26 SD: 146 QRS: 35 QRSD: 96 T: 27 QT: 337 QTc: 466 Interpretive Statements SINUS TACHYCARDIA DELAYED PRECORDIAL R/S TRANSITION BORDERLINE ST ABNORMALITY- HIGH LATERAL LEADS BASELINE ARTIFACT- AVR, AVL, AVF ABNORMAL ECG Electronically Signed On 11-14-2019 9:50:19 CDT by Brandon Hancock D.O.
--- NOTE | 2019-11-14 09:37 | ED.SEIZURE ---
HPI - Seizure General Chief Complaint: Seizure Stated Complaint: SEIZURE Time Seen by Provider: 11/14/19 09:27 Source: patient and EMS Mode of arrival: EMS History of Present Illness HPI Narrative: This patient is a 39 year old male with history of seizure disorder who presents for evaluation of multiple seizures. EMS states they were called due to patient having a seizure at [facility]. EMS states patient was found to have had 3 seizures. He was postictial on their arrival. PAtient takes keppra 1000 mg BID. He states he did not take his morning dose today. HE does not remember events leading to seizures. He has no complaints other than tongue laceration. Related Data Home Medications Medication Instructions Recorded Confirmed citalopram 20 mg PO DAILY 08/03/19 10/15/19 Allergies Allergy/AdvReac Type Severity Reaction Status Date / Time No Known Allergies Allergy Unknown Verified 11/14/19 16:00 Review of Systems Review of Systems: All systems reviewed & are unremarkable except as noted in HPI and below Constitutional: Constitutional: Denies chills and Denies fever(s) [facility] Social History Social History Social History: He has 3 children. According to prior H&Ps the patient consumed at least a 5th of gin or vodka a day. Smoking packs per day: 1 Smoking cigarettes per day: 20.0 Years smoked: 10 Smoking pack-years: 10.00 Smoking status: Current every day smoker Tobacco type: cigarettes Alcohol intake: current Substance use: current Substance use type: marijuana Gender identity (if verbalized by the patient): Male Spiritual care concerns: No Agree to blood products: Yes Exam Const: General: no acute distress and alert Orientation/consciousness: patient oriented x3 HENMT: Head: normocephalic and other (left forehead superficial laceration) Face and sinus: face symmetric Mouth: Yes tongue abnormal other (right tongue laceration , no bleeding) Throat: uvula midline Eyes: Pupils: Equal, round and reactive pupils present EOM: EOMs intact bilaterally Neck: Neck: normal visual inspection Chest: Chest palpation & inspection: normal inspection of the chest Resp: Effort & Inspection: normal respiratory effort and no retractions Auscultation: clear to auscultation bilaterally Cardio: Rate: tachycardic Rhythm: regular rhythm Heart sounds: no murmurs GI: GI Palp: Yes Soft to palpation and No Tenderness to palpation present (GI) Auscultation: normal bowel sounds Skin: General skin exam: normal color Rashes: no rashes Neuro: General: patient oriented x3, moves all extremities and CN's II-XI intact bilaterally Course Reevaluation(s) Reevaluation #1: PAtient states he feels fine and he does not want to be admitted. Date: 11/14/19 Time: 11:40 Consultations Consultation #1: I Discussed case with DR. Martinez who states its okay patient does not want to be admitted. IT just needs to be stressed that he takes his medication. Date: 11/14/19 Time: 11:41 Vital Signs Vital signs: Vital Signs Temperature 98.9 F 11/14/19 09:21 Pulse Rate 121 H 11/14/19 09:21 Respiratory Rate 18 11/14/19 09:21 Blood Pressure 148/100 H 11/14/19 09:21 Pulse Oximetry 95 11/14/19 09:21 Temperature 98.9 F 11/14/19 09:21 Pulse Rate 75 11/14/19 11:43 Respiratory Rate 20 11/14/19 11:43 Blood Pressure 140/105 H 11/14/19 11:43 Pulse Oximetry 100 11/14/19 11:43 Procedures Laceration Laceration 1: Date: 11/14/19 Time: 12:15 Site: other (tongue) Side (If applicable): right Description: flap Depth: [id number] Local Anesthetic: lidocaine 1% Amount of anesthesia used (mL): 1 Pre-repair: irrigated ====== Skin Level ====== Skin layer closed with: other (fast absorbing gut) Size (cm): 5-0 Number of sutures: 1 ====== Sub
[2019-11-14] MEDS: levETIRAcetam 1000MG/NACL100ML 1,000 MG/100 ML BAG 400 MG IVPB (09:57)
[2019-11-14] MEDS: SODIUM CHLORIDE 0.9% IV 1,000 ML 999 ML IV CONT (09:57)
[2019-11-14 10:26] LABS: Basophils Absolute Auto 0.1 K/mm3 (0.0-0.1); Basophils Percent Auto 0.7 % (0.2-1.2); Eosinophils Absolute Auto 0.1 K/mm3 (0-0.3); Eosinophils Percent Auto 1.5 % (0-4.4); Hematocrit 37.9 % (42.0-52.0); Immature Granulocyte Absolute 0.04 K/mm3 (0.00-0.031); Immature Granulocyte Percent A 0.5 % (0-0.5); Lymphocytes Absolute Auto 0.82 K/mm3 (0.9-3.2); Lymphocytes Percent Auto 9.5 % (18.3-44.2); Mean Corpuscular HGB Conc 34.3 g/dl (32-36); Mean Corpuscular Hemoglobin 31.3 pg (26-34); Mean Corpuscular Volume 91.1 fl (80-100); Mean Platelet Volume 10.1 fl (7.4-10.4); Monocytes Percent Auto 11.8 % (2.6-8.5); Neutrophils Absolute Auto 6.5 K/mm3 (1.3-6.7); Platelet Count Result 142 k/mm3 (150-375); Red Blood Count 4.16 M/mm3 (4.6-6.20); White Blood Count 8.6 K/mm3 (4.5-10.0)
[2019-11-14 10:38] LABS: Alanine Aminotransferase 89 U/L (4-50); Albumin Level 3.5 g/dL (3.5-5.1); Alkaline Phosphatase 156 U/L (38-126); Aspartate Amino Transferase 59 U/L (17-59); Bilirubin,Total 1.1 mg/dL (0.2-1.3); Blood Urea Nitrogen 11 mg/dL (9-20); Calcium 8.6 mg/dL (8.4-10.2); Carbon Dioxide 26 mmol/L (22-30); Chloride 96 mmol/L (98-107); Estimated CRCL calculation 118 ml/min; Estimated Glomerular Filt Rate > 60; Glucose 93 mg/dL (75-110); Sodium 132 mmol/L (137-145)
[2019-11-14 10:40] LABS: Ethanol < 10 mg/dL (<10)
[2019-11-14 11:13] LABS: Barbiturate Screen Urine Negative (Negative); Benzodiazepines Screen Urine Positive (Negative)
[2019-11-14 11:14] LABS: Amphetamine Screen Urine Negative (Negative); Cannabinoid Screen Urine Positive (Negative); Cocaine Screen Urine Negative (Negative); Methadone Screen Urine Negative (Negative); Opiate Screen Urine Negative (Negative); Phencyclidine Screen Urine Negative (Negative)
[2019-11-14] MEDS: POTASSIUM CHLORIDE 20 MEQ PACKET (FOR LIQUID) 40 MEQ PO (12:51)
--- NOTE | 2019-11-14 16:08 | ED.SEIZURE ---
HPI - Seizure General Chief Complaint: Seizure Stated Complaint: SEIZURE Time Seen by Provider: 11/14/19 09:27 Source: patient and EMS Mode of arrival: EMS History of Present Illness Seizure History: Yes Related Data Home Medications Medication Instructions Recorded Confirmed citalopram 20 mg PO DAILY 08/03/19 10/15/19 Allergies Allergy/AdvReac Type Severity Reaction Status Date / Time No Known Allergies Allergy Unknown Verified 11/14/19 16:00 [facility] Social History Social History Social History: He has 3 children. According to prior H&Ps the patient consumed at least a 5th of gin or vodka a day. Smoking packs per day: 1 Smoking cigarettes per day: 20.0 Years smoked: 10 Smoking pack-years: 10.00 Smoking status: Current every day smoker Tobacco type: cigarettes Alcohol intake: current Substance use: current Substance use type: marijuana Gender identity (if verbalized by the patient): Male Spiritual care concerns: No Agree to blood products: Yes Course Vital Signs Vital signs: Vital Signs Temperature 98.9 F 11/14/19 09:21 Pulse Rate 121 H 11/14/19 09:21 Respiratory Rate 18 11/14/19 09:21 Blood Pressure 148/100 H 11/14/19 09:21 Pulse Oximetry 95 11/14/19 09:21 Temperature 98.9 F 11/14/19 09:21 Pulse Rate 75 11/14/19 11:43 Respiratory Rate 20 11/14/19 11:43 Blood Pressure 140/105 H 11/14/19 11:43 Pulse Oximetry 100 11/14/19 11:43 MDM - Seizure Lab Data Result diagrams: 11/14/19 10:16 11/14/19 10:16 Labs: Lab Results 11/14/19 11/14/19 11/14/19 Range/Units 10:16 10:16 10:16 WBC 8.6 (4.5-10.0) K/mm3 RBC 4.16 L (4.6-6.20) M/mm3 Hgb 13.0 L (14.0-18.0) g/dL Hct 37.9 L (42.0-52.0) % MCV 91.1 (80-100) fl MCH 31.3 (26-34) pg MCHC 34.3 (32-36) g/dl RDW 15.0 H (11.5-14.5) % Plt Count 142 L (150-375) k/mm3 MPV 10.1 (7.4-10.4) fl Immature Gran % (Auto) 0.5 (0-0.5) % Neut % (Auto) 76.0 H (45.5-73.1) % Lymph % (Auto) 9.5 L (18.3-44.2) % [place] % (Auto) 11.8 H (2.6-8.5) % Eos % (Auto) 1.5 (0-4.4) % Baso % (Auto) 0.7 (0.2-1.2) % Lymph # (Auto) 0.82 L (0.9-3.2) K/mm3 [place] # (Auto) 1.0 H (0.1-0.6) K/mm3 Eos # (Auto) 0.1 (0-0.3) K/mm3 Baso # (Auto) 0.1 (0.0-0.1) K/mm3 Abs Immat Gran (auto) 0.04 H (0.00-0.031) K/mm3 Absolute Neuts (auto) 6.5 (1.3-6.7) K/mm3 Absolute Nucleated RBC 0.0 (0.0-0.012) K/mm3 Nucleated RBC % 0.0 (0.0-0.2) % Sodium 132 L (137-145) mmol/L Potassium 3.0 L (3.4-5.0) mmol/L Chloride 96 L (98-107) mmol/L Carbon Dioxide 26 (22-30) mmol/L Anion Gap 13.0 (7-16) mmol/L BUN 11 (9-20) mg/dL Creatinine 0.80 (0.7-1.3) mg/dL Estim Creat Clear Calc 118 ml/min Estimated GFR > 60 (59 - ) Glucose 93 (75-110) mg/dL Calcium 8.6 (8.4-10.2) mg/dL Total Bilirubin 1.1 (0.2-1.3) mg/dL AST 59 (17-59) U/L ALT 89 H (4-50) U/L Alkaline Phosphatase 156 H (38-126) U/L Total Protein 6.0 L (6.3-8.2) g/dL Albumin 3.5 (3.5-5.1) g/dL Urine Opiates Screen (Negative) Urine Methadone Screen (Negative) Ur Barbiturates Screen (Negative) Ur Phencyclidine Scrn (Negative) Ur Amphetamine Screen (Negative) U Benzodiazepines Scrn (Negative) Urine Cocaine Screen (Negative) U Cannabinoids Screen (Negative) Ethyl Alcohol < 10 (<10) mg/dL 11/14/19 Range/Units 10:26 WBC (4.5-10.0) K/mm3 RBC (4.6-6.20) M/mm3 Hgb (14.0-18.0) g/dL Hct (42.0-52.0) % MCV (80-100) fl MCH (26-34) pg MCHC (32-36) g/dl RDW (11.5-14.5) % Plt Count (150-375) k/mm3 MPV (7.4-10.4) fl Immature Gran % (Auto) (0-0.5) % Neut % (Auto) (45.5-73.1) % Lymph % (Auto) (18.3-44.2) % [place] % (Auto) (2.6-8.5) % Eos % (Auto) (
== END 2019-11-14 12:52 | disposition home or self-care (01) ==
PROVIDERS: Emergency Provider General Practice; PCP Family Medicine
DX: G40.909 Epilepsy, unspecified, not intractable, without status epilepticus (principal); R00.0 Tachycardia, unspecified; F17.210 Nicotine dependence, cigarettes, uncomplicated
CPT/HCPCS: 12011; 36415; 70450; 80053; 80307; 85025; 93005; 96361; 96374; 99284; A9270; J1953; J7030

== ENCOUNTER 2019-11-14 15:54 | Observation (INO) | payer OTHER, SELFPAY ==
[2019-11-14] VITALS (8 sets, daily range): BP systolic 135–169; BP diastolic 90–110; PULSE 66–103; RESP 11–18; TEMP 36.7–37.4; O2SAT 95–100; BMI 25.8
--- NOTE | 2019-11-14 15:58 | ECG_ITS ---
Measurements Intervals [place] Rate: 110 P: 162 VA: 260 QRS: 44 QRSD: 106 T: 41 QT: 358 QTc: 484 Interpretive Statements SINUS TACHYCARDIA BASELINE ARTIFACT- I, II, III, AVR, AVL,A VF, V1 ABNORMAL ECG Electronically Signed On 11-14-2019 17:53:43 CDT by Brandon Hancock D.O.
--- NOTE | 2019-11-14 16:03 | PC.NURSE ---
erp kalie at bedside
--- NOTE | 2019-11-14 16:42 | ED.SEIZURE ---
HPI - Seizure General Chief Complaint: Seizure Stated Complaint: SEIZURE Time Seen by Provider: 11/14/19 16:01 Source: EMS Mode of arrival: EMS History of Present Illness HPI Narrative: This patient is a 39 year old male with history of seizure disorder and alcohol withdrawal. Patient was evaluated earlier today in ER for having 3 seizures. Patient stated that he missed his keppra dose this morning so he was given keppra 1000 mg in ED. He stated he did not want to be admitted so he was discharged home. Patient states he was waiting at the bus stop and then next thing he remembers is an ambulance showed up. He denies any complaints. He denies headache, dizziness, weakness or chest pain. Patient states he has not drank alcohol in months. MD complaint: seizure Seizure History: Yes Related Data Home Medications Medication Instructions Recorded Confirmed citalopram 20 mg PO DAILY 08/03/19 11/14/19 Allergies Allergy/AdvReac Type Severity Reaction Status Date / Time No Known Allergies Allergy Unknown Verified 11/14/19 16:00 Review of Systems Review of Systems: All systems reviewed & are unremarkable except as noted in HPI and below Constitutional: Constitutional: Denies chills and Denies fever(s) Neurologic: Reports syncope, Denies headache(s), Denies focal weakness and Denies numbness PMFSH Past Medical History Medical History Alcohol abuse Alcohol withdrawal seizure Alcoholic hepatitis Alcoholic pancreatitis BPH (benign prostatic hyperplasia) Central pontine myelinolysis Chronic anemia With labs consistent with anemia of chronic disease COPD (chronic obstructive pulmonary disease) Depression with anxiety Essential hypertension Hypercholesterolemia Cholesterol 490 15 April 2018 Hypertriglyceridemia Triglycerides 270 18 April 2018 Kidney stones Peripheral neuropathy Tobacco dependence Social History Social History Social History: He has 3 children. According to prior H&Ps the patient consumed at least a 5th of gin or vodka a day. Smoking packs per day: 1 Smoking cigarettes per day: 20.0 Years smoked: 10 Smoking pack-years: 10.00 Smoking status: Current every day smoker Tobacco type: cigarettes Alcohol intake: former Substance use: former Substance use type: does not use Other substance usage details: quit drinking 5 days ago Gender identity (if verbalized by the patient): Male Sexual Orientation (if Verbalized by the Patient): Straight or Heterosexual Spiritual care concerns: No Agree to blood products: Yes Exam Const: General: no acute distress and alert Orientation/consciousness: patient oriented x3 HENMT: Head: normocephalic and atraumatic Face and sinus: face symmetric Mouth: Yes tongue abnormal other (right tongue laceration with contusion) Eyes: Pupils: Equal, round and reactive pupils present EOM: EOMs intact bilaterally Chest: Chest palpation & inspection: normal inspection of the chest Resp: Effort & Inspection: normal respiratory effort and no retractions Auscultation: clear to auscultation bilaterally GI: GI Palp: Yes Soft to palpation and No Tenderness to palpation present (GI) Auscultation: normal bowel sounds Skin: General skin exam: normal color Neuro: General: patient oriented x3 and moves all extremities Course Consultations Consultation #1: I have discussed with Rosy , patient case and she accepts for admission Date: 11/14/19 Time: 16:43 Consultation #2: I D iscussed case with DR. Martinez. He states to increased keppra to 1500 bid with seizure precautions. Date: 11/14/19 Time: 16:48 Vital Signs Vital signs: Vital Signs Temperature 99.3 F 11/14/19 15:52 Pulse Rate 93 11/14/19 15:52 Respiratory Rate 18 11/14/19 15:52 Blood Pressure 169/110 H 11/14/19 15:52 Pulse Oximetry 95 11/14/19 15:52
[2019-11-14] MEDS: levETIRAcetam 1000MG/NACL100ML 1,000 MG/100 ML BAG 400 MG IVPB (17:18)
[2019-11-14] MEDS: levETIRAcetam 500MG/NACL 100ML 500 MG/100 ML BAG 400 MG IVPB (17:18)
--- NOTE | 2019-11-14 17:53 | PC.NURSE ---
This patient, Kristian Tirado, was admitted to Medical Room 340-01. Patient/family oriented to hospital policies and general routines including ID bracelet, bed and alarms, visiting hours, pain management, procedures, bathroom and other care routines, personal items, smoking policy, room service/diet, and visiting hours. Valuables list has been completed. Information on how to activate the Rapid Response Team has been discussed. Patient/Family are encouraged to report perceived risks to care and to ask questions if they do not understand what they are told or what they should do.
[2019-11-15] VITALS (10 sets, daily range): BP systolic 103–162; BP diastolic 72–110; PULSE 55–91; RESP 16; TEMP 36.3–36.9; O2SAT 98–100
--- NOTE | 2019-11-15 01:34 | PM.IMHP ---
H&P: HPI History of Present Illness Date/Time: 11/15/19 01:34 Chief complaint: seizure disorder Narrative: This is a 38 year old male with known alcohol abuse disorder and alcoholic hepatitis who is well known to our Hospitalist service for previous admissions for withdrawal seizures and presented to the hospital with a history of possibly having 3 seizures. Apparently the patient did not take his Keppra yesterday morning. He was loaded with IV Keppra and sent home at that time. Apparently he was waiting at the bus stop when he had another seizure. On my encounter with the patient he can't remember if he had any seizures yesterday although he does admit to biting his tongue. He is known to drink Vodka and its unknown the last time he was drinkng alcohol. He denies to me any recent alcohol intake. The patient was admitted to our Hospitalist service and has been given Ativan IV for acute agitation. Currently he denies any fever, chills, cough, shortness of breath, chest pain, abdominal pain, dysuria, hematuria, diarrhea or rectal bleeding. Neurology has been consulted by ER provider. No other complaints at this time. Review of Systems Review of Systems: All systems reviewed & are unremarkable except as noted in HPI and below PMFSH Past Medical History Medical History Alcohol abuse Alcohol withdrawal seizure Alcoholic hepatitis Alcoholic pancreatitis BPH (benign prostatic hyperplasia) Central pontine myelinolysis Chronic anemia With labs consistent with anemia of chronic disease COPD (chronic obstructive pulmonary disease) Depression with anxiety Essential hypertension Hypercholesterolemia Cholesterol 490 15 April 2018 Hypertriglyceridemia Triglycerides 270 18 April 2018 Kidney stones Peripheral neuropathy Tobacco dependence Surgical History Surgical History No significant past surgical history Family History Family History Mother COPD (chronic obstructive pulmonary disease) Breast cancer Hypertension Seizures Diabetes mellitus Father Diabetes mellitus Parkinsons disease Lewy body dementia Social History Social History Social History: He has 3 children. According to prior H&Ps the patient consumed at least a 5th of gin or vodka a day. Smoking packs per day: 1 Smoking cigarettes per day: 20.0 Years smoked: 10 Smoking pack-years: 10.00 Smoking status: Current every day smoker Tobacco type: cigarettes Alcohol intake: former Substance use: former Substance use type: does not use Other substance usage details: quit drinking 5 days ago Gender identity (if verbalized by the patient): Male Sexual Orientation (if Verbalized by the Patient): Straight or Heterosexual Spiritual care concerns: No Agree to blood products: Yes Meds Home Medications and Allergies Home Medications Medication Instructions Recorded Confirmed Type citalopram 20 mg PO DAILY 08/03/19 11/14/19 History levetiracetam [Keppra] 1,000 mg PO Q12HR #120 tablet 10/18/19 11/14/19 Rx Allergies Allergy/AdvReac Type Severity Reaction Status Date / Time No Known Allergies Allergy Unknown Verified 11/14/19 16:00 Vital Signs Vital Signs - 24 hr 11/14/19 15:52 11/14/19 15:58 11/14/19 17:05 Temperature 37.4 C Pulse Rate 93 103 H 78 Respiratory Rate 18 18 Blood Pressure 169/110 H 135/95 H Pulse Oximetry 95 98 11/14/19 17:45 11/14/19 18:00 11/14/19 18:35 Temperature 36.7 C Pulse Rate 79 67 91 Respiratory Rate 11 L 16 Blood Pressure 155/102 H 151/101 H Pulse Oximetry 97 99 11/14/19 19:43 11/14/19 20:00 Temperature 36.9 C Pulse Rate 66 97 Respiratory Rate 16 16 Blood Pressure 151/90 H 151/90 H Pulse Oximetry 100 100 Exam Const: General: cooperati
[2019-11-15] MEDS: KCL 20 MEQ/SW 100 ML 100 ML 50 MEQ IVPB (04:15)
[2019-11-15 05:45] LABS: Basophils Absolute Auto 0.1 K/mm3 (0.0-0.1); Basophils Percent Auto 0.6 % (0.2-1.2); Eosinophils Absolute Auto 0.2 K/mm3 (0-0.3); Eosinophils Percent Auto 2.8 % (0-4.4); Hemoglobin 12.1 g/dL (14.0-18.0); Immature Granulocyte Absolute 0.04 K/mm3 (0.00-0.031); Immature Granulocyte Percent A 0.5 % (0-0.5); Lymphocytes Absolute Auto 1.63 K/mm3 (0.9-3.2); Mean Corpuscular HGB Conc 33.6 g/dl (32-36); Mean Corpuscular Hemoglobin 30.9 pg (26-34); Mean Corpuscular Volume 91.8 fl (80-100); Mean Platelet Volume 10.3 fl (7.4-10.4); Monocytes Percent Auto 12.4 % (2.6-8.5); Neutrophils Absolute Auto 4.9 K/mm3 (1.3-6.7); Neutrophils Percent Auto 62.7 % (45.5-73.1); Platelet Count Result 156 k/mm3 (150-375); Red Blood Count 3.92 M/mm3 (4.6-6.20); White Blood Count 7.8 K/mm3 (4.5-10.0)
[2019-11-15 06:00] LABS: Anion Gap 8.7 mmol/L (7-16); Blood Urea Nitrogen 8 mg/dL (9-20); Calcium 8.4 mg/dL (8.4-10.2); Carbon Dioxide 25 mmol/L (22-30); Chloride 99 mmol/L (98-107); Estimated CRCL calculation 154 ml/min; Estimated Glomerular Filt Rate > 60; Glucose 109 mg/dL (75-110); Magnesium 1.4 mg/dL (1.6-2.3); Potassium 3.7 mmol/L (3.4-5.0); Sodium 129 mmol/L (137-145)
[2019-11-15] MEDS: CITALOPRAM HYDROBROMIDE 20 MG TABLET PO (08:47)
[2019-11-15] MEDS: THIAMINE HCL 200 MG/2 ML VIAL 100 MG IV PUSH (08:48)
[2019-11-15] MEDS: FOLIC ACID 1 MG TABLET PO (08:48)
[2019-11-15] MEDS: MAGNESIUM OXIDE 400 MG TABLET PO (09:43)
[2019-11-15 11:57] LABS: Glucose Point of Care 127 (65-105)
--- NOTE | 2019-11-15 12:13 | CONS_ITS ---
DATE OF CONSULTATION: Patient of Dr. Yvon Rowell. HISTORY: A 39-year-old right-handed male has been admitted to the [facility] through the emergency room with the complaint of seizure disorder in addition to history of: 1. Alcohol abuse disorder. 2. Alcoholic hepatitis. 3. Current alcohol-related seizure and also withdrawal seizure in addition to the history of noncompliance with the office followup. Reportedly, he was waiting at the bus stop when he had another seizure. He was unable to recall when he had the encounter with the physician on the floor. He bit his tongue. He is known to drink vodka and unknown when he had the last drink. In addition, he has ongoing history of alcohol-related withdrawal seizure, hepatitis, pancreatitis, benign prostatic hypertrophy, central pontine myelinolysis with chronic anemia, COPD, anxiety with depression, hypertension, hypocholesterolemia, hypertriglyceridemia, renal stones, peripheral neuropathy, and tobacco dependence. He smoked 1 pack per day for the last 10 years. History of 10-pack per year. Current every day smoker, former alcohol drinker, former substance user. ALLERGIES: HE IS ALLERGIC TO NO MEDICATION. ? At the time of admission to the hospital, he was taking citalopram 20 mg daily, Keppra 1000 mg q.12 hours. PHYSICAL EXAMINATION: VITAL SIGNS: On examination, he is afebrile with pulse of 78, respirations 18, blood pressure 135/95. GENERAL: Physical examination revealed him to be awake, alert, cooperative, in no obvious acute distress. He recognized the physician he has seen the last time. He had obvious bruise. In addition, he had the bruised tongue as well. HEENT: Head normocephalic with no cranial bruit. Ear, nose, throat examination normal. NECK: Supple with no cervical bruit. No thyromegaly. No lymphadenopathy. HEART: Regular with no murmur. LUNGS: Clear to auscultation. ABDOMEN: Soft with no organomegaly. NEUROLOGICAL: He is awake, alert, oriented, being in the hospital. His speech is not dysphasic, not dysarthric. Pupils round, regular. Jacobs of vision full. Extraocular movements full. Face symmetrical. Tongue midline. Motor examination revealed him to have symmetrical strength with reflexes symmetrical. Ankle jerks absent. Plantars are downgoing. There is no evidence of gross cerebellar deficit. IMPRESSION: Alcohol-related seizure. PLAN: Continue the medications. BELA HARRIS M.D. MANAGER FRONT OFFICE MANAGER FRONT OFFICE D I MT: Paz
[2019-11-15 13:20] LABS: Creatinine Urine 211.2 mg/dL; Sodium Urine Random 123 meq/L
[2019-11-15 15:56] LABS: Sodium 132 mmol/L (137-145)
[2019-11-15] MEDS: hydrALAZINE HCL 20 MG/ML VIAL 10 MG IV PUSH (15:56)
--- NOTE | 2019-11-15 18:21 | PM.DS ---
DS: Admitting Diagnosis Admitting Diagnosis Admitting Diagnosis: Unspecified convulsions DS: Discharge Diagnosis Discharge Diagnosis (1) Seizure: Code(s): R56.9 - Unspecified convulsions Status: Acute Assessment and Plan: He stated he had 3 seizures on the morning of 11/14/19. He reports missing his Keppra dose that day. He was seen in consultation by neurology. Head CT was negative for acute intracranial abnormality. Electrolytes were monitored. TSH was within normal limits. He did not have any further seizure activity. No adjustments were made to his Keppra dose. Reinforced the importance with taking medication consistently and not missing any doses. (2) Hypokalemia: Code(s): E87.6 - Hypokalemia Status: Acute Assessment and Plan: Potassium was monitored and replaced as needed. Levels remain stable. He should obtain an outpatient BMP. (3) HTN (hypertension): Qualifiers: Hypertension type: unspecified Qualified Code(s): I10 - Essential (primary) hypertension Code(s): I10 - Essential (primary) hypertension Status: Chronic Assessment and Plan: Blood pressures were elevated during his stay. He was given IV hydralazine to control pressures. I encouraged him to monitor his blood pressures at home and record. Will defer starting an antihypertensive to PCP. (4) Transaminitis: Code(s): R74.0 - Nonspecific elevation of levels of transaminase and lactic acid dehydrogenase [LDH] Status: Chronic Assessment and Plan: Secondary to alcohol abuse. Actually appears improved from prior labs. (5) COPD (chronic obstructive pulmonary disease): Qualifiers: COPD type: unspecified COPD Qualified Code(s): J44.9 - Chronic obstructive pulmonary disease, unspecified Code(s): J44.9 - Chronic obstructive pulmonary disease, unspecified Status: Chronic Assessment and Plan: Chronic and stable. He maintained adequate oxygenation on room air. (6) Alcohol abuse: Code(s): F10.10 - Alcohol abuse, uncomplicated Status: Chronic Assessment and Plan: He was monitored closely. CIWA protocol was in affect and he did not display any symptoms of withdrawal. Continue thiamine and folic acid as outpatient. Importance of alcohol cessation was discussed. DS: Summary Hospital Course Reason for hospitalization: Seizure Hospital Course: Date of admission: 11/14/2019 Date of discharge: 11/15/2019 Kristian Tirado is a 39-year-old male with a history of alcohol abuse, alcohol withdrawal seizures, COPD, HTN, and multiple other comorbidities who presented to the emergency department on 11/14/2019 in the morning after having a seizure at [facility]. He did not want to be admitted to the hospital and was discharged from the ED. He had a tongue laceration that was repaired with 1 suture. He then returned to the emergency department later that afternoon after being found at the bus stop. He reported he has not drank alcohol in months. He also reported that he missed his dose of Keppra that morning. At presentation BP was elevated at 169/110, EKG showed sinus tachycardia, and head CT showed no acute intracranial abnormalities. He was admitted to the hospitalist service for further evaluation and treatment and was seen in consultation by Neurology. It was recommended that he continue his Keppra dose as prescribed and I reinforced the importance of taking his medication consistently. He began feeling better and was determined to be stable for discharge. Please see above for further details. We discussed worrisome signs and symptoms for which he should return and all questions were answered. He was discharged in hemodynamically stable condition on 11/15/2019. Status at Discharge Functional status at discharge: independent ambulation Overall status at discharge: patient is back to baseline Time Spent with Lyndon
[2019-11-15 18:27] LABS: Glucose Point of Care 146 (65-105)
== END 2019-11-15 19:35 | disposition home or self-care (01) ==
LOC: ANHED 16:50 → ANH3MED 17:21
PROVIDERS: Family Medicine; Admitting Provider Family Medicine; Emergency Provider General Practice; PCP Family Medicine; Visit Provider Physician Assistant
DX: R56.9 Unspecified convulsions (principal); F10.10 Alcohol abuse, uncomplicated; K70.10 Alcoholic hepatitis without ascites; E83.42 Hypomagnesemia; E87.1 Hypo-osmolality and hyponatremia; F17.210 Nicotine dependence, cigarettes, uncomplicated; E87.6 Hypokalemia; I10 Essential (primary) hypertension; R74.0 Nonspecific elevation of levels of transaminase and lactic acid dehydrogenase [LDH]; J44.9 Chronic obstructive pulmonary disease, unspecified; Z91.19 Patient's noncompliance with other medical treatment and regimen
CPT/HCPCS: 12011; 36415; 70450; 80048; 80053; 80307; 82570; 83735; 84295; 84300; 84443; 85025; 93005; 96361; 96365; 96367; 96374; 96375; 99285; A9270; G0378; G0379; J0360; J1953; J2060; J3411; J3480; J7030

== ENCOUNTER 2019-11-15 22:12 | Emergency (ER) | payer OTHER, SELFPAY ==
[2019-11-15 22:20] VITALS: BP 180/114; PULSE 100; RESP 20; TEMP 36.8; O2SAT 97
== END 2019-11-15 22:55 | disposition left against medical advice (07) ==
PROVIDERS: PCP Family Medicine
DX: Z53.21 Procedure and treatment not carried out due to patient leaving prior to being seen by health care provider (principal)
CPT/HCPCS: 99199

== ENCOUNTER 2019-12-26 15:35 | Emergency (ER) | payer OTHER, SELFPAY ==
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
--- NOTE | ~2019-12-26 | XR_ITS ---
EXAMINATION: XR lumbar spine 2-3V DATE: 12/26/2019 16:16 INDICATION: Low back pain. TECHNIQUE: 3 views of lumbar spine were obtained. COMPARISON: Chest 2 views 11/11/2019 FINDINGS: There is 7 degrees dextrocurvature of thoracolumbar spine. There is mild chronic anterior w edging of T10-T12 vertebral bodies. There is mildly decreased disc height at T10-T11, T11-T12, L1-L2, and L3-L4. There are endplate osteophytes at most levels. There is multilevel mild facet joint osteo arthritis. IMPRESSION: 1. Mild thoracolumbar spondylosis. Reviewed, dictated and finalized at location A.
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
[2019-12-26 15:35] VITALS: BP 137/85; PULSE 111; RESP 21; TEMP 36.6; O2SAT 98
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
== END 2019-12-26 17:15 | disposition home or self-care (01) ==
PROVIDERS: Emergency Provider Emergency Medicine; PCP Family Medicine
DX: M54.5 Low back pain (principal); F17.210 Nicotine dependence, cigarettes, uncomplicated; J44.9 Chronic obstructive pulmonary disease, unspecified; F41.9 Anxiety disorder, unspecified; F32.9 Major depressive disorder, single episode, unspecified; I10 Essential (primary) hypertension; E78.5 Hyperlipidemia, unspecified; V44.5XXA Car driver injured in collision with heavy transport vehicle or bus in traffic accident, initial encounter
CPT/HCPCS: 70450; 71045; 72100; 72125; 99284

== ENCOUNTER 2020-03-25 16:35 | Emergency (ER) | payer OTHER, SELFPAY ==
--- NOTE | 2020-03-25 16:40 | ED.GENADULT ---
HPI - General Adult General Chief complaint: Psychiatric Symptoms <Laurel Dao MD - Last Filed: 03/25/20 21:00> Stated complaint: SI <Laurel Dao MD - Last Filed: 03/25/20 21:00> Time Seen by Provider: 03/25/20 16:40 <Laurel Dao MD - Last Filed: 03/25/20 21:00> Source: patient and EMS <Laurel Dao MD - Last Filed: 03/25/20 21:00> Mode of arrival: EMS <Laurel Dao MD - Last Filed: 03/25/20 21:00> Limitations: no limitations <Laurel Dao MD - Last Filed: 03/25/20 21:00> History of Present Illness HPI narrative: Patient is a 39-year-old male with a history of seizure disorder, taking Keppra, alcohol abuse, depression who presents for evaluation of suicidal ideation. Patient reportedly has passive suicidality for [employer] today. ED called EMS and EMS was transported to our facility. Patient reports that he drank over a gallon and a half of vodka today, last drink approximately 4 hours ago. He denies nausea or vomiting. Patient reports homelessness, loss of his children, severe financial insecurity as recent stressors. No specific plan for suicide, pt states he may drink himself to or jump in front of a car. Pt states he has no will to live. <Laurel Dao MD - Last Filed: 03/25/20 21:00> Related Data Home medications: Home Medications Medication Instructions Recorded Confirmed citalopram 20 mg PO DAILY 08/03/19 11/14/19 <Laurel Dao MD - Last Filed: 03/25/20 21:00> Allergies/adverse reactions: Allergies Allergy/AdvReac Type Severity Reaction Status Date / Time No Known Allergies Allergy Unknown Verified 03/25/20 21:26 <Laurel Dao MD - Last Filed: 03/25/20 21:00> Review of Systems Review of Systems: Narrative: CONSTITUTIONAL: Denies fever, chills, or sweats. CARDIOVASCULAR: Denies chest pain, palpitations, or edema. RESPIRATORY: Denies cough or dyspnea. GASTROINTESTINAL: Denies abdominal pain, nausea, vomiting, or diarrhea. GENITOURINARY: Denies dysuria or hematuria. SKIN: Denies rash or itching. MUSCULOSKELETAL: Denies back pain, joint pain, or myalgia. NEUROLOGIC: Denies headache, numbness, or weakness. PSYCH: Reports depression, suicidality <Laurel Dao MD - Last Filed: 03/25/20 21:00> [facility] Past Medical History Medical History: Medical History (Updated 03/25/20 @ 18:10 by Laurel Dao MD) Alcohol abuse Alcohol withdrawal seizure Alcoholic hepatitis Alcoholic pancreatitis BPH (benign prostatic hyperplasia) Central pontine myelinolysis Chronic anemia With labs consistent with anemia of chronic disease COPD (chronic obstructive pulmonary disease) Depression with anxiety Essential hypertension Hypercholesterolemia Cholesterol 490 15 April 2018 Hypertriglyceridemia Triglycerides 270 18 April 2018 Kidney stones Peripheral neuropathy Tobacco dependence <Laurel Dao MD - Last Filed: 03/25/20 21:00> Surgical History Surgical History: Surgical History No significant past surgical history <Laurel Dao MD - Last Filed: 03/25/20 21:00> Family History Family History: Family History Mother COPD (chronic obstructive pulmonary disease) Breast cancer Hypertension Seizures Diabetes mellitus Father Diabetes mellitus Parkinsons disease Lewy body dementia <Laurel Dao MD - Last Filed: 03/25/20 21:00> Social History Social History: Social History Social History: He has 3 children. According to prior H&Ps the patient consumed at least a 5th of gin or vodka a day. Smoking packs per day: 1 Smoking cigarettes per day: 20.0 Years smoked: 10 Smoking pack-years: 10.00 Smoking status: Current every day smoker Tobacco type: cigarettes Alcohol intak
--- NOTE | 2020-03-25 16:41 | ECG_ITS ---
Measurements Intervals [place] Rate: 87 P: 58 HI: 143 QRS: 58 QRSD: 102 T: -16 QT: 356 QTc: 428 Interpretive Statements SINUS RHYTHM NONSPECIFIC ST & T-WAVE ABNORMALITY- INFERIOR LEADS BASELINE ARTIFACT- II, III, AVL, AVF, V1-V2 BORDERLINE ECG Electronically Signed On 03-26-2020 7:05:29 HOSPITAL CNA by Brandon Hancock D.O.
[2020-03-25 16:57] VITALS: BP 142/68; PULSE 78; RESP 18; TEMP 36.7; O2SAT 99
[2020-03-25 17:11] LABS: Basophils Percent Auto 0.2 % (0.2-1.2); Eosinophils Percent Auto 0.1 % (0-4.4); Hematocrit 45.4 % (42.0-52.0); Immature Granulocyte Absolute 0.05 K/mm3 (0.00-0.031); Immature Granulocyte Percent A 0.3 % (0-0.5); Lymphocytes Absolute Auto 0.94 K/mm3 (0.9-3.2); Lymphocytes Percent Auto 5.9 % (18.3-44.2); Mean Corpuscular Hemoglobin 28.7 pg (26-34); Mean Corpuscular Volume 86.8 fl (80-100); Mean Platelet Volume 9.4 fl (7.4-10.4); Monocytes Absolute Auto 0.5 K/mm3 (0.1-0.6); Monocytes Percent Auto 3.1 % (2.6-8.5); Neutrophils Absolute Auto 14.5 K/mm3 (1.3-6.7); Neutrophils Percent Auto 90.4 % (45.5-73.1); Platelet Count Result 244 k/mm3 (150-375); Red Blood Count 5.23 M/mm3 (4.6-6.20); Red Cell Distribution Width 14.6 % (11.5-14.5)
[2020-03-25 17:18] LABS: Glucose Point of Care 101 (65-105)
[2020-03-25 17:23] LABS: Alanine Aminotransferase 87 U/L (4-50); Albumin Level 4.3 g/dL (3.5-5.1); Alkaline Phosphatase 146 U/L (38-126); Anion Gap 23 mmol/L (8-16); Aspartate Amino Transferase 198 U/L (17-59); Bilirubin,Total 1.1 mg/dL (0.2-1.3); Blood Urea Nitrogen 15 mg/dL (9-20); Calcium 8.4 mg/dL (8.4-10.2); Carbon Dioxide 19 mmol/L (22-30); Chloride 93 mmol/L (98-107); Estimated CRCL calculation 118 ml/min; Estimated Glomerular Filt Rate > 60; Glucose 93 mg/dL (75-110); Potassium 4.5 mmol/L (3.4-5.0); Sodium 135 mmol/L (137-145)
[2020-03-25 17:24] LABS: Ethanol 277 mg/dL (<10)
--- NOTE | 2020-03-25 18:18 | PC.NURSE ---
patient taken off unit accompanied by ert and security for shower
[2020-03-25 19:20] LABS: Add Urine Microscopic? YES; Appearance Urine Clear (Clear); Bilirubin Urine Negative (Negative); Blood Urine 1+ (Negative); Color Urine Yellow (Yellow); Glucose Urine UA Negative (Negative); Ketones Urine 2+ mg/dL (Negative); Leukocyte Esterase Ur Trace LEU/UL (Negative); Mucus Urine Rare /lpf; Nitrate Urine Negative (Negative); Protein Urine 2+ mg/dL (Negative); RBC Urine 0-2 /hpf (0-2); Specific Grav Ur 1.025 (1.001-1.035); Squamous Epithelial Cell Urine Occasional /hpf (Few); WBC Urine 0-3 /hpf
[2020-03-25 19:31] LABS: Amphetamine Screen Urine Negative (Negative); Barbiturate Screen Urine Negative (Negative); Benzodiazepines Screen Urine Negative (Negative); Cannabinoid Screen Urine Positive (Negative); Cocaine Screen Urine Negative (Negative); Methadone Screen Urine Negative (Negative); Opiate Screen Urine Negative (Negative); Phencyclidine Screen Urine Negative (Negative)
[2020-03-25] MEDS: levETIRAcetam 500 MG TABLET 1000 MG PO (21:25)
[2020-03-25] MEDS: THIAMINE HCL 100 MG TABLET PO (21:26)
--- NOTE | 2020-03-25 22:31 | PC.NURSE ---
patient questioning why he is in a room without a tv. when told he is in the psych room for his protection patient states that he is in er for having seizures and does not need to be in the psych room. denies having made statements about wanting to hang himself
[2020-03-26 01:42] LABS: SARS-CoV-2 RNA PCR Negative
[2020-03-26 01:49] LABS: Ethanol 62 mg/dL (<10)
[2020-03-26] MEDS: diazePAM (*CRX) 5 MG TABLET PO (03:35)
--- NOTE | 2020-03-26 03:37 | PC.NURSE ---
Pt states he is feeling shaky and that he might have a seizure. MD notified and order for PO valium obtained.
--- NOTE | 2020-03-26 03:44 | PC.NURSE ---
Pts ETOH level 62. Patient states he does not have thoughts of or a current plan to end his life.
[2020-03-26 03:54] VITALS: BP 122/67; PULSE 70; RESP 18; TEMP 36.8; O2SAT 98
[2020-03-26] MEDS: CITALOPRAM HYDROBROMIDE 20 MG TABLET PO (09:59)
[2020-03-26] MEDS: FOLIC ACID 1 MG TABLET PO (09:59)
[2020-03-26] MEDS: levETIRAcetam 500 MG TABLET 1000 MG PO (09:59)
[2020-03-26] MEDS: MAGNESIUM OXIDE 400 MG TABLET PO (09:59)
[2020-03-26] MEDS: THIAMINE HCL 100 MG TABLET PO (10:04)
[2020-03-26 15:02] VITALS: BP 143/89; PULSE 96; TEMP 36.3; O2SAT 98
[2020-03-28 23:47] LABS: Levetiracetam Keppra <1.0 mcg/mL (12.0-46.0)
== END 2020-03-26 18:50 ==
PROVIDERS: Emergency Medicine; Emergency Provider Emergency Medicine; PCP Family Medicine
DX: F10.10 Alcohol abuse, uncomplicated (principal); R45.851 Suicidal ideations; G40.909 Epilepsy, unspecified, not intractable, without status epilepticus; N40.0 Benign prostatic hyperplasia without lower urinary tract symptoms; D64.9 Anemia, unspecified; J44.9 Chronic obstructive pulmonary disease, unspecified; I10 Essential (primary) hypertension; E78.00 Pure hypercholesterolemia, unspecified; E78.1 Pure hyperglyceridemia; Z87.442 Personal history of urinary calculi; G62.9 Polyneuropathy, unspecified; G37.2 Central pontine myelinolysis; F41.8 Other specified anxiety disorders; F17.210 Nicotine dependence, cigarettes, uncomplicated; Y90.8 Blood alcohol level of 240 mg/100 ml or more; Z20.828 Contact with and (suspected) exposure to other viral communicable diseases; R94.31 Abnormal electrocardiogram [ECG] [EKG]
CPT/HCPCS: 36415; 80053; 80177; 80307; 81001; 82948; 84443; 85025; 87635; 93005; 99285; A9270; C9803; U0003

== ENCOUNTER 2020-06-12 10:03 | Emergency (ER) | payer OTHER, SELFPAY ==
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
[2020-06-12 10:04] VITALS: BP 130/82; PULSE 71; RESP 16; TEMP 36.4; O2SAT 96
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
[2020-06-12] MEDS: IBUPROFEN 600 MG TABLET PO (10:55)
== END 2020-06-12 10:58 | disposition home or self-care (01) ==
PROVIDERS: Emergency Provider Emergency Medicine; PCP Family Medicine
DX: S39.92XA Unspecified injury of lower back, initial encounter (principal); N40.0 Benign prostatic hyperplasia without lower urinary tract symptoms; J44.9 Chronic obstructive pulmonary disease, unspecified; E78.00 Pure hypercholesterolemia, unspecified; G62.9 Polyneuropathy, unspecified; D63.8 Anemia in other chronic diseases classified elsewhere; E78.1 Pure hyperglyceridemia; G37.2 Central pontine myelinolysis; F41.8 Other specified anxiety disorders; F17.210 Nicotine dependence, cigarettes, uncomplicated; Z87.442 Personal history of urinary calculi; M47.816 Spondylosis without myelopathy or radiculopathy, lumbar region; V49.50XA Passenger injured in collision with unspecified motor vehicles in traffic accident, initial encounter
CPT/HCPCS: 72110; 99283; A9270

== ENCOUNTER 2020-06-16 15:13 | Emergency (ER) | payer OTHER, SELFPAY ==
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
[2020-06-16 15:18] VITALS: BP 147/83; PULSE 115; RESP 18; TEMP 36.7; O2SAT 98
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
== END 2020-06-16 17:59 | disposition home or self-care (01) ==
PROVIDERS: Emergency Provider Emergency Medicine; PCP Family Medicine
DX: S13.4XXA Sprain of ligaments of cervical spine, initial encounter (principal); N40.0 Benign prostatic hyperplasia without lower urinary tract symptoms; J44.9 Chronic obstructive pulmonary disease, unspecified; I10 Essential (primary) hypertension; E78.00 Pure hypercholesterolemia, unspecified; E78.1 Pure hyperglyceridemia; G62.9 Polyneuropathy, unspecified; D63.8 Anemia in other chronic diseases classified elsewhere; F41.8 Other specified anxiety disorders; Z87.442 Personal history of urinary calculi; M47.812 Spondylosis without myelopathy or radiculopathy, cervical region; V49.9XXA Car occupant (driver) (passenger) injured in unspecified traffic accident, initial encounter
CPT/HCPCS: 72040; 72125; 99284

== ENCOUNTER 2021-02-04 08:45 | Emergency (ER) | payer OTHER, SELFPAY ==
--- NOTE | ~2021-02-04 | CT_ITS ---
EXAMINATION: CT brain wo [facility] EXAM DATE: 02/04/2021 09:37 INDICATION: fall, intoxicated. TECHNIQUE: Spiral CT of the head was performed without contrast. Axial, coronal and sagittal images were reviewed. The dose-length product (DLP) for this examination was 605.33 mGy-cm. The exposure w as tailored according to patient size, and iterative reconstruction (ASIR) was used as additional dos e reduction technique. Comparison is made to prior examination from 12/26/2019. FINDINGS: There is no acute intraparenchymal hemorrhage. No evidence of intraparenchymal brain mass lesion. No evidence of acute infarction. There is no mass effect or midline shift. The ventricles are normal in size. There are no extra-axial collections. There are no acute calvarial fractures. T he orbits are unremarkable. Soft tissue is unremarkable. The visualized sinuses and mastoid air matthew ls are well aerated. IMPRESSION: 1. No acute intracranial findings. Reviewed, dictated and finalized at location B.
[2021-02-04 08:45] VITALS: BP 95/52; PULSE 59; RESP 16; TEMP 36.3; O2SAT 98
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
[2021-02-04 10:49] LABS: Basophils Absolute Auto 0.1 K/mm3 (0.0-0.1); Basophils Percent Auto 1.1 % (0.2-1.2); Eosinophils Absolute Auto 0.2 K/mm3 (0-0.3); Eosinophils Percent Auto 3.4 % (0-4.4); Hematocrit 44.1 % (42.0-52.0); Immature Granulocyte Absolute 0.19 K/mm3 (0.00-0.031); Immature Granulocyte Percent A 2.7 % (0-0.5); Lymphocytes Percent Auto 25.4 % (18.3-44.2); Mean Corpuscular HGB Conc 31.7 g/dl (32-36); Mean Corpuscular Hemoglobin 29.5 pg (26-34); Mean Platelet Volume 9.6 fl (7.4-10.4); Monocytes Absolute Auto 0.6 K/mm3 (0.1-0.6); Monocytes Percent Auto 7.9 % (2.6-8.5); Neutrophils Absolute Auto 4.2 K/mm3 (1.3-6.7); Neutrophils Percent Auto 59.5 % (45.5-73.1); Platelet Count Result 387 k/mm3 (150-375); Red Blood Count 4.74 M/mm3 (4.6-6.20); Red Cell Distribution Width 15.2 % (11.5-14.5); White Blood Count 7.1 K/mm3 (4.5-10.0)
[2021-02-04 11:03] LABS: Alanine Aminotransferase 33 U/L (4-50); Albumin Level 4.3 g/dL (3.5-5.1); Alkaline Phosphatase 69 U/L (38-126); Anion Gap 11 mmol/L (8-16); Aspartate Amino Transferase 33 U/L (17-59); Bilirubin,Total 0.2 mg/dL (0.2-1.3); Blood Urea Nitrogen 7 mg/dL (9-20); Calcium 8.8 mg/dL (8.4-10.2); Carbon Dioxide 26 mmol/L (22-30); Chloride 108 mmol/L (98-107); Estimated CRCL calculation 153 ml/min; Estimated Glomerular Filt Rate > 60; Glucose 86 mg/dL (65-110); Potassium 3.9 mmol/L (3.4-5.0); Sodium 145 mmol/L (137-145)
[2021-02-04 11:06] LABS: Ethanol 287 mg/dL (<10)
[2021-02-04] MEDS: SODIUM CHLORIDE 0.9% IV 1,000 ML 999 ML IV CONT (11:21)
[2021-02-04 11:23] VITALS: BP 93/62; PULSE 56; RESP 16; O2SAT 98
--- NOTE | 2021-02-04 11:24 | PC.NURSE ---
Asked patient to provided urine sample. Patient states he is unable to at this time.
[2021-02-04 12:17] LABS: Amphetamine Screen Urine Negative (Negative); Barbiturate Screen Urine Negative (Negative); Benzodiazepines Screen Urine Negative (Negative); Cannabinoid Screen Urine Negative (Negative); Cocaine Screen Urine Negative (Negative); Methadone Screen Urine Negative (Negative); Opiate Screen Urine Negative (Negative); Phencyclidine Screen Urine Negative (Negative)
== END 2021-02-04 17:15 | disposition home or self-care (01) ==
PROVIDERS: Physician Assistant; Emergency Provider Emergency Medicine; PCP Family Medicine
DX: F10.920 Alcohol use, unspecified with intoxication, uncomplicated (principal); F17.210 Nicotine dependence, cigarettes, uncomplicated; J44.9 Chronic obstructive pulmonary disease, unspecified; N40.0 Benign prostatic hyperplasia without lower urinary tract symptoms; E78.5 Hyperlipidemia, unspecified; I10 Essential (primary) hypertension
CPT/HCPCS: 36415; 70450; 80053; 80307; 85025; 96360; 96361; 99283; J7030

== ENCOUNTER 2021-03-24 20:06 | Emergency (ER) | payer OTHER, SELFPAY ==
[2021-03-24 20:15] VITALS: BP 138/80; PULSE 64; RESP 16; TEMP 36.4; O2SAT 98
== END 2021-03-25 01:07 | disposition left against medical advice (07) ==
LOC: ANHED 03-25 01:00
PROVIDERS: PCP Family Medicine
DX: M25.561 Pain in right knee (principal)
CPT/HCPCS: 99199

== ENCOUNTER 2021-03-26 17:26 | Emergency (ER) | payer OTHER, SELFPAY ==
--- NOTE | ~2021-03-26 | XR_ITS ---
XR knee RT min 4V 03/26/2021 21:57 INDICATION: Right knee pain. Twisting injury. PROCEDURE: 4 views right knee COMPARISON: 09/01/2005 FINDINGS: Fracture, dislocation or subluxation is not identified. The soft tissues appear within norm al limits. No foreign bodies are identified. IMPRESSION: 1: NO ACUTE BONE OR JOINT ABNORMALITY IDENTIFIED. Reviewed, dictated and finalized at location A. RAL PLANNING COUNSELOR
--- NOTE | ~2021-03-26 | US_ITS ---
EXAMINATION:US venous doppler LE RT INDICATION:Right leg pain and swelling TECHNIQUE: Multiple grayscale, color flow and Doppler images of the right lower extremity deep venous systems were obtained and reviewed. COMPARISON:No prior studies for comparison. FINDINGS: The common femoral, superficial femoral and popliteal veins demonstrate normal respiratory variation, augmentation and compressibility. Color flow is also seen within the posterior tibial, pe roneal, greater saphenous and profunda veins. There is a Sanchez's cyst of the right popliteal fossa me asuring 4.6 x 0.8 x 2.1 cm. There is a mildly prominent inguinal lymph node with retention of normal fatty hilum, likely reactive. IMPRESSION: 1: No lower extremity deep venous thrombosis. Reviewed, dictated and finalized at location A. S AND LEASING AGENT
[2021-03-26 17:31] VITALS: BP 121/79; PULSE 74; RESP 14; TEMP 37.2; O2SAT 100
--- NOTE | 2021-03-26 21:09 | ED.LOWEXIN ---
HPI - Extremity Injury (Lower) General Chief Complaint: Extremity Injury, Lower Stated Complaint: leg pain Time Seen by Provider: 03/26/21 21:09 Source: patient Mode of arrival: ambulatory Limitations: no limitations History of Present Illness HPI Narrative: The patient is a 40 yo male with a history of epilepsy, anxiety, and depression presenting for evaluation of right knee pain. Patient was working four days ago when he pivoted on the right knee, with immediate popping and pain at the site. Pain aching, throbbing in nature. Patient reported immediate pain and swelling after the injury. Pt states pain was initially severe and was unable to ambulate the day of the injury, but has been ambulatory over the past three days. Pt reports he was worried he may have developed a DVT, thus prompting his visit today. He does report warmth in the calf and lower leg swelling. He denies numbness or severe pain. He reports some slight redness. No numbness or weakness. Related Data Home Medications Medication Instructions Recorded Confirmed gabapentin 02/04/21 02/04/21 sertraline mg 02/04/21 Allergies Allergy/AdvReac Type Severity Reaction Status Date / Time No Known Allergies Allergy Unknown Verified 03/26/21 21:27 Review of Systems Review of Systems: CONSTITUTIONAL: Denies fever CARDIOVASCULAR: Denies chest pain RESPIRATORY: Denies cough or dyspnea. GASTROINTESTINAL: Denies abdominal pain SKIN: Denies rash MUSCULOSKELETAL: Denies back pain, reports right knee and calf pain NEUROLOGIC: Denies headache PMFSH Past Medical History Medical History (Updated 03/26/21 @ 22:21 by Laurel Dao MD) Alcohol abuse Alcohol withdrawal seizure Alcoholic hepatitis Alcoholic pancreatitis BPH (benign prostatic hyperplasia) Central pontine myelinolysis Chronic anemia With labs consistent with anemia of chronic disease COPD (chronic obstructive pulmonary disease) Depression with anxiety Essential hypertension Hypercholesterolemia Cholesterol 490 15 April 2018 Hypertriglyceridemia Triglycerides 270 18 April 2018 Kidney stones Peripheral neuropathy Tobacco dependence Surgical History Surgical History No significant past surgical history Family History Family History Mother COPD (chronic obstructive pulmonary disease) Breast cancer Hypertension Seizures Diabetes mellitus Father Diabetes mellitus Parkinsons disease Lewy body dementia Social History Social History Social History: He has 3 children. According to prior H&Ps the patient consumed at least a 5th of gin or vodka a day. Smoking packs per day: 1 Smoking cigarettes per day: 20.0 Years smoked: 10 Smoking pack-years: 10.00 Smoking status: Current every day smoker Tobacco type: cigarettes Alcohol intake: former Substance use: former Substance use type: does not use Other substance usage details: quit drinking 5 days ago Gender identity (if verbalized by the patient): Male Sexual Orientation (if Verbalized by the Patient): Straight or Heterosexual Spiritual care concerns: No Agree to blood products: Yes Exam Narrative: GENERAL: Awake, alert, conversant HEAD: Normocephalic, atraumatic. EYES: PERRLA and EOMI. ENT: Nares clear, no rhinorrhea or epistaxis. Mucous membranes moist. NECK: Supple. CHEST: No respiratory distress, breathing even and non labored HEART: Regular rate, sinus rhythm ABDOMEN:Non distended, non tender EXTREMITIES: Normal range of motion. Intact flexion and extension of the right knee without limitation. There is a joint effusion of the right knee with mild edema without erythema. No induration. Compartment is soft. Popliteal pulse 2+. Intact distal sensation. SKIN: Warm, dry, no rash. NEURO:No focal deficits. Alert and oriented x3 Co
[2021-03-26 21:23] VITALS: BP 125/79; PULSE 66; RESP 18; O2SAT 96
== END 2021-03-26 22:30 | disposition home or self-care (01) ==
PROVIDERS: Emergency Provider Emergency Medicine; PCP Family Medicine
DX: S86.911A Strain of unspecified muscle(s) and tendon(s) at lower leg level, right leg, initial encounter (principal); R22.41 Localized swelling, mass and lump, right lower limb; F41.9 Anxiety disorder, unspecified; F32.9 Major depressive disorder, single episode, unspecified; J44.9 Chronic obstructive pulmonary disease, unspecified; I10 Essential (primary) hypertension; F17.210 Nicotine dependence, cigarettes, uncomplicated; X50.9XXA Other and unspecified overexertion or strenuous movements or postures, initial encounter
CPT/HCPCS: 73564; 93971; 99284

== ENCOUNTER 2021-03-28 10:24 | Emergency (ER) | payer OTHER, SELFPAY ==
--- NOTE | ~2021-03-28 | US_ITS ---
EXAMINATION: US venous doppler LE RT DATE: 03/28/2021 13:52 INDICATION: Right lower limb swelling. TECHNIQUE: Grayscale ultrasound images without and with compression and Doppler ultrasound images of the right lower extremity veins were obtained. COMPARISON: Ultrasound 03/26/2021 FINDINGS: The visualized portions of right common femoral vein, profunda (deep) femoral vein, femoral vein, pop liteal vein, peroneal veins, posterior tibial veins, and greater saphenous vein outflow are patent. T here is a small Sanchez's cyst. There is a 13.1 x 2.8 x 5.1 cm hematoma in the right calf. IMPRESSION: 1. No deep venous thrombosis. 2. 13.1 x 2.8 x 5.1 cm hematoma in the right calf. 3. Small Sanchez's cyst. Reviewed, dictated and finalized at location A. RACKER
[2021-03-28 11:23] VITALS: BP 138/90; PULSE 76; RESP 18; TEMP 36.2; O2SAT 100
--- NOTE | 2021-03-28 13:02 | ED.GENADULT ---
HPI - General Adult General Chief complaint: Extremity Problem,Nontraumatic Stated complaint: Leg Pain/Swelling Time Seen by Provider: 03/28/21 12:47 History of Present Illness HPI narrative: 40-year-old male with history of epilepsy anxiety and depression presents to the emergency department for reevaluation of his right lower extremity injury. Patient states on Tuesday he pivoted and injured his knee and calf. Patient states he did rest on Tuesday but then did work on Tuesday and . Patient states after Tuesday and he had increased pain and swelling. Patient presented to the emergency department for evaluation and had a negative Doppler and negative x-ray of the knee. Patient states he has been taking ibuprofen for pain control. Patient states he still has continue to work and this morning had increased pain and swelling of the calf. Patient describes superior calf tenderness. Patient does have increased lower extremity swelling. Patient denies any upper leg tenderness. Patient states the knee pain has improved. Patient denies any associated chest pain or shortness of breath. Related Data Home Medications Medication Instructions Recorded Confirmed gabapentin 02/04/21 02/04/21 sertraline mg 02/04/21 Allergies Allergy/AdvReac Type Severity Reaction Status Date / Time No Known Allergies Allergy Unknown Verified 03/28/21 11:27 Review of Systems Review of Systems: CONSTITUTIONAL: Denies fever, chills, or sweats. EYES: Denies visual changes, redness, or discharge. ENT: Denies rhinorrhea, congestion, sore throat, or otalgia. CARDIOVASCULAR: Denies chest pain, palpitations, or edema. RESPIRATORY: Denies cough or dyspnea. GASTROINTESTINAL: Denies abdominal pain, nausea, vomiting, or diarrhea. GENITOURINARY: Denies dysuria or hematuria. SKIN: Denies rash or itching. MUSCULOSKELETAL: Right knee pain is improving but right calf pain and swelling worsened. NEUROLOGIC: Denies headache, numbness, or weakness. [facility] Past Medical History Medical History (Updated 03/28/21 @ 14:06 by Franklin Denney MD) Alcohol abuse Alcohol withdrawal seizure Alcoholic hepatitis Alcoholic pancreatitis BPH (benign prostatic hyperplasia) Central pontine myelinolysis Chronic anemia With labs consistent with anemia of chronic disease COPD (chronic obstructive pulmonary disease) Depression with anxiety Essential hypertension Hypercholesterolemia Cholesterol 490 15 April 2018 Hypertriglyceridemia Triglycerides 270 18 April 2018 Kidney stones Peripheral neuropathy Tobacco dependence Surgical History Surgical History No significant past surgical history Family History Family History Mother COPD (chronic obstructive pulmonary disease) Breast cancer Hypertension Seizures Diabetes mellitus Father Diabetes mellitus Parkinsons disease Lewy body dementia Social History Social History Social History: He has 3 children. According to prior H&Ps the patient consumed at least a 5th of gin or vodka a day. Smoking packs per day: 1 Smoking cigarettes per day: 20.0 Years smoked: 10 Smoking pack-years: 10.00 Smoking status: Current every day smoker Tobacco type: cigarettes Alcohol intake: former Substance use: former Substance use type: does not use Other substance usage details: quit drinking 5 days ago Gender identity (if verbalized by the patient): Male Sexual Orientation (if Verbalized by the Patient): Straight or Heterosexual Spiritual care concerns: No Agree to blood products: Yes Exam Narrative: APPEARANCE: Well appearing, no pain in distress, well-nourished. Head normocephalic atraumatic. NECK: Supple. No adenopathy, no masses. RESPIRATORY: Airway patent, respirations nonlabored. Clear to auscultation zenia
== END 2021-03-28 15:00 | disposition home or self-care (01) ==
PROVIDERS: Emergency Provider Emergency Medicine
DX: S80.11XA Contusion of right lower leg, initial encounter (principal); I10 Essential (primary) hypertension; F41.9 Anxiety disorder, unspecified; F32.9 Major depressive disorder, single episode, unspecified; J44.9 Chronic obstructive pulmonary disease, unspecified; F17.210 Nicotine dependence, cigarettes, uncomplicated; X58.XXXA Exposure to other specified factors, initial encounter
CPT/HCPCS: 93971; 99284

== ENCOUNTER 2021-09-04 14:36 | Outpatient (CLI) | payer OTHER, SELFPAY ==
--- NOTE | 2021-09-04 15:52 | WPDPFTINT ---
PFT Procedure Performed PFT Procedure Performed Plethysmography (Lung Vol) Diffusing Cap (DLCO) Flow Vol Loop Spirometry w/o Bronchodil PFT Interpretation This is a pulmonary function test with spirometry, plethysmography and diffusing capacity. The test was performed and results interpreted in accordance with the 2019 and 2005 ATS/ERS Task Force guidelines respectively using the Global Lung Function Initiative-2012 reference equations. Patient demonstrated good effort and cooperation. Reproducibility criteria were met. The quality of the spirometry maneuver was Grade A. Findings: Spirometry: There is decreased maximal expiratory airflow at all lung volumes with a mildly concave expiratory flow tracing. The FVC is 5.92 L, 105% predicted. The FEV1 is 3.51 L, 78% predicted. The FEV1: FVC ratio is 59%. Plethysmography: Total lung capacity is 8.98 L, 122% predicted. The functional residual capacity is 4.72 L, 127% predicted. The residual volume is 3.06 L, 158% predicted. Diffusing capacity: The diffusing capacity unadjusted for hemoglobin and carboxyhemoglobin is 27.7, 82% predicted. The diffusing capacity adjusted for alveolar volume is 3.65, 77% predicted. Impression: There is a mild obstructive abnormality. The increase in residual volume is consistent with air trapping from an obstructive abnormality. The diffusing capacity is normal. There are no prior studies for comparison
== END 2021-09-04 14:37 | disposition home or self-care (01) ==
LOC: ANHPFT 14:38
PROVIDERS: Visit Provider Physician Assistant
DX: R06.2 Wheezing (principal)
CPT/HCPCS: 94375; 94726; 94729

== ENCOUNTER 2021-09-21 19:00 | Emergency (ER) | payer OTHER, SELFPAY ==
--- NOTE | ~2021-09-21 | XR_ITS ---
EXAMINATION: XR chest 1V portable Exam Date/Time: 09/21/2021 19:20 CDT HISTORY: AMS Comparison: 12/26/2019. RESULT: Lines, tubes, and devices: None. Lungs and pleura: Low volumes with crowding. Cardiomediastinal silhouette: Stable cardiomediastinal silhouette. Other: No acute osseous or upper abdominal finding. IMPRESSION: No acute cardiopulmonary process. Reviewed, dictated and finalized at location K.
--- NOTE | 2021-09-21 19:17 | ECG_ITS ---
Measurements Intervals [place] Rate: 91 P: 44 NC: 150 QRS: 79 QRSD: 106 T: 61 QT: 350 QTc: 432 Interpretive Statements SINUS RHYTHM COMPARED TO ECG 03/25/2020 18:11:50 NO SIGNIFICANT CHANGES Electronically Signed On 09-22-2021 11:17:56 CDT by Andres Noe M.D.
[2021-09-21 19:32] VITALS: BP 131/78; PULSE 107; RESP 18; O2SAT 88
[2021-09-21 19:35] VITALS: O2SAT 92
[2021-09-21] MEDS: SODIUM CHLORIDE 0.9% IV 1,000 ML 999 ML IV CONT ×2 (19:49→21:14)
[2021-09-21] MEDS: THIAMINE HCL 200 MG/2 ML VIAL 100 MG IV PUSH (19:50)
[2021-09-21 19:53] LABS: Basophils Absolute Auto 0.1 K/mm3 (0.0-0.1); Basophils Percent Auto 0.8 % (0.2-1.2); Eosinophils Absolute Auto 0.1 K/mm3 (0-0.3); Eosinophils Percent Auto 1.2 % (0-4.4); Hematocrit 40.7 % (42.0-52.0); Hemoglobin 14.2 g/dL (14.0-18.0); Immature Granulocyte Absolute 0.05 K/mm3 (0.00-0.031); Immature Granulocyte Percent A 0.6 % (0-0.5); Lymphocytes Percent Auto 29.1 % (18.3-44.2); Mean Corpuscular HGB Conc 34.9 g/dl (32-36); Mean Corpuscular Hemoglobin 30.3 pg (26-34); Mean Platelet Volume 9.5 fl (7.4-10.4); Monocytes Absolute Auto 0.6 K/mm3 (0.1-0.6); Monocytes Percent Auto 6.9 % (2.6-8.5); Neutrophils Absolute Auto 5.3 K/mm3 (1.3-6.7); Neutrophils Percent Auto 61.4 % (45.5-73.1); Platelet Count Result 320 k/mm3 (150-375); Red Blood Count 4.68 M/mm3 (4.6-6.20); Red Cell Distribution Width 13.4 % (11.5-14.5); White Blood Count 8.6 K/mm3 (4.5-10.0)
[2021-09-21 20:05] LABS: Alanine Aminotransferase 20 U/L (6-50); Albumin Level 4.1 g/dL (3.5-5.1); Alkaline Phosphatase 102 U/L (38-126); Anion Gap 13 mmol/L (8-16); Aspartate Amino Transferase 30 U/L (17-59); Bilirubin,Total 0.2 mg/dL (0.2-1.3); Blood Urea Nitrogen 14 mg/dL (9-20); Calcium 8.2 mg/dL (8.4-10.2); Carbon Dioxide 23 mmol/L (22-30); Chloride 109 mmol/L (98-107); Creatine Kinase 127 U/L (55-170); Estimated CRCL calculation 96 ml/min; Estimated Glomerular Filt Rate > 60; Glucose 105 mg/dL (65-110); Potassium 3.9 mmol/L (3.4-5.0); Sodium 145 mmol/L (137-145)
[2021-09-21 20:09] LABS: Lactic Acid Reflex 2.6 mmol/L (0.7-2.0)
[2021-09-21 20:23] LABS: Ethanol 374 mg/dL (<10)
[2021-09-21 20:32] VITALS: BP 107/62; PULSE 84; RESP 16; O2SAT 96
[2021-09-21 20:35] VITALS: RESP 18; O2SAT 96
[2021-09-21 21:12] LABS: Appearance Urine Clear (Clear); Bilirubin Urine Negative (Negative); Blood Urine Negative (Negative); Color Urine Yellow (Yellow); Glucose Urine UA Negative (Negative); Ketones Urine Negative (Negative); Leukocyte Esterase Ur Negative LEU/UL (Negative); Nitrate Urine Negative (Negative); Protein Urine Negative (Negative); Urobilinogen Urine 0.2 mg/dL (<2.0); pH Urine 5.5 (5.0-9.0)
[2021-09-21 21:13] LABS: Add Urine Microscopic? NO
[2021-09-21 21:28] LABS: Amphetamine Screen Urine Negative (Negative); Barbiturate Screen Urine Negative (Negative); Benzodiazepines Screen Urine Negative (Negative); Cannabinoid Screen Urine Negative (Negative); Cocaine Screen Urine Negative (Negative); Methadone Screen Urine Negative (Negative); Opiate Screen Urine Negative (Negative); Phencyclidine Screen Urine Negative (Negative)
[2021-09-21 21:46] VITALS: BP 125/86; PULSE 94; RESP 18; O2SAT 96
[2021-09-21 22:50] LABS: Reflex Lactic Acid Yes or No Add Lactic
[2021-09-21 23:08] VITALS: BP 99/58; PULSE 62; RESP 16; O2SAT 97
[2021-09-21 23:27] LABS: Lactic Acid 2.3 mmol/L (0.7-2.0)
[2021-09-22 00:13] VITALS: BP 98/69; PULSE 69; RESP 16; O2SAT 96
[2021-09-22] MEDS: SODIUM CHLORIDE 0.9% IV 1,000 ML 999 ML IV CONT (00:31)
[2021-09-22 01:00] VITALS: O2SAT 97
[2021-09-22 01:44] VITALS: BP 98/49; PULSE 62; RESP 18; O2SAT 97
[2021-09-22 02:52] VITALS: BP 106/77; PULSE 76; RESP 16; O2SAT 97
[2021-09-22 04:45] VITALS: BP 133/67; PULSE 83; RESP 18; O2SAT 97
--- NOTE | 2021-09-22 05:06 | ED.GENADULT ---
HPI - General Adult General Chief complaint: Altered Mental Status Stated complaint: AMS Time Seen by Provider: 09/21/21 19:01 History of Present Illness HPI narrative: Patient is a 40-year-old male who presents ER with altered mental status from his home. Patient lives in a home that is apparently very rundown and covered in human excrement and animals. Patient is known alcoholic with history of seizure disorder. Patient is very argumentative and combative. Not oriented at this time. Is moving all extremities but cannot give history about what occurred today. Apparently patient's girlfriend was admitted to the hospital earlier today due to being intoxicated. Related Data Home Medications Medication Instructions Recorded Confirmed gabapentin 300 mg capsule 02/04/21 02/04/21 sertraline 100 mg tablet mg 02/04/21 Allergies Allergy/AdvReac Type Severity Reaction Status Date / Time No Known Allergies Allergy Unknown Verified 03/28/21 11:27 Review of Systems Review of Systems: ROS unobtainable: Yes unobtainable due to medical condition PMFSH Past Medical History Medical History (Updated 03/29/21 @ 00:00 by Background Daemon) Alcohol abuse Alcohol withdrawal seizure Alcoholic hepatitis Alcoholic pancreatitis BPH (benign prostatic hyperplasia) Central pontine myelinolysis Chronic anemia With labs consistent with anemia of chronic disease COPD (chronic obstructive pulmonary disease) Depression with anxiety Essential hypertension Hypercholesterolemia Cholesterol 490 15 April 2018 Hypertriglyceridemia Triglycerides 270 18 April 2018 Kidney stones Peripheral neuropathy Tobacco dependence Surgical History Surgical History No significant past surgical history Family History Family History Mother COPD (chronic obstructive pulmonary disease) Breast cancer Hypertension Seizures Diabetes mellitus Father Diabetes mellitus Parkinsons disease Lewy body dementia Social History Social History Social History: He has 3 children. According to prior H&Ps the patient consumed at least a 5th of gin or vodka a day. Smoking packs per day: 1 Smoking cigarettes per day: 20.0 Years smoked: 10 Smoking pack-years: 10.00 Smoking status: Current every day smoker Tobacco type: cigarettes Alcohol intake: former Substance use: former Substance use type: does not use Other substance usage details: quit drinking 5 days ago Gender identity (if verbalized by the patient): Male Sexual Orientation (if Verbalized by the Patient): Straight or Heterosexual Spiritual care concerns: No Agree to blood products: Yes Exam Narrative: GENERAL: Agitated, well-nourished, and in mild distress. HEAD: Normocephalic, atraumatic. EYES: PERRL and EOMI. ENT: Mucous membranes moist. CHEST: Clear to auscultation. No respiratory distress. HEART: Tachycardic and regular. Normal peripheral pulses. ABDOMEN: Soft, nontender, nondistended. EXTREMITIES: Normal range of motion. No edema. SKIN: Warm, dry, no rash. NEURO: Awake and alert, not oriented. Hostile. Clear speech. Moves all extremities without issue. Course Reevaluation(s) Reevaluation #1: Patient laying in bed. Resting comfortably. Alert and oriented x3. Eating and drinking without issue. Has been hydrated. Date: 09/22/21 Time: 05:09 Vital Signs Vital signs: Vital Signs Pulse Rate 107 H 09/21/21 19:32 Respiratory Rate 18 09/21/21 19:32 Blood Pressure 131/78 09/21/21 19:32 Pulse Oximetry 88 L 09/21/21 19:32 Pulse Rate 82 09/22/21 06:43 Respiratory Rate 18 09/22/21 06:43 Blood Pressure 126/67 09/22/21 06:43 Pulse Oximetry 97 09/22/21 06:43 Oxygen Delivery Room Air 09/22/21 01:00 Oxygen Flow Rate 2 09/21/21 20:35 Medical Dec[facility]
--- NOTE | 2021-09-22 05:45 | PC.NURSE ---
Pt walked to bathroom with no difficulty and voided.
--- NOTE | 2021-09-22 05:46 | PC.NURSE ---
RN called Mir at [phone] pt's father in law for a ride home.
[2021-09-22 06:43] VITALS: BP 126/67; PULSE 82; RESP 18; O2SAT 97
[2021-09-22 07:09] LABS: Ethanol 114 mg/dL (<10)
--- NOTE | 2021-09-22 07:44 | PC.NURSE ---
Spoke to pt regarding discharge. Pt states he has no money or a ride home. Pt states his phone is and his friend Mir is the only number he has. Mir phone is going straight to [facility].
--- NOTE | 2021-09-22 08:53 | PC.NURSE ---
PT refused to sign discharge patient. PT being difficult regarding discharge because unable to find ride home.
--- NOTE | 2021-09-22 09:08 | PC.NURSE ---
Pt denies SI and HI at discharge. PT given bus tokens and scrubs at discharge. Security with patient at discharge.
== END 2021-09-22 09:12 | disposition home or self-care (01) ==
PROVIDERS: Emergency Medicine; Emergency Provider Emergency Medicine
DX: F10.10 Alcohol abuse, uncomplicated (principal); G40.909 Epilepsy, unspecified, not intractable, without status epilepticus; I10 Essential (primary) hypertension; J44.9 Chronic obstructive pulmonary disease, unspecified; F17.210 Nicotine dependence, cigarettes, uncomplicated; Y90.9 Presence of alcohol in blood, level not specified
CPT/HCPCS: 36415; 51701; 71045; 80053; 80307; 81003; 82550; 83605; 85025; 93005; 96361; 96374; 99284; J3411; J7030

== ENCOUNTER 2021-10-07 17:04 | Emergency (ER) | payer OTHER, SELFPAY ==
--- NOTE | ~2021-10-07 | XR_ITS ---
EXAMINATION: XR chest 1V portable Exam Date/Time: 10/07/2021 20:05 CDT HISTORY: alcohol abuse, PT POOR HISTORIAN, AMS Comparison: 09/21/2021. RESULT: Lines, tubes, and devices: None. Lungs and pleura: Right midlung scar, otherwise clear. Cardiomediastinal silhouette: Stable cardiomediastinal silhouette. Other: No acute osseous or upper abdominal finding. IMPRESSION: No acute cardiopulmonary process. Reviewed, dictated and finalized at location K.
--- NOTE | ~2021-10-07 | CT_ITS ---
EXAMINATION: CT brain wo con DATE: 10/07/2021 20:19 INDICATION: alcohol abuse . TECHNIQUE: Computed tomography (CT) of the head was performed without intravenous contrast. The mA wa s adjusted according to patient size. Iterative reconstruction technique was employed. The dose-lengt h product was 605.33 mGy-cm. COMPARISON: 02/04/2021. FINDINGS: No acute intracranial hemorrhage or extra-axial fluid collection. No hydrocephalus, mass, or herniation. No acute ischemic infarct. Unremarkable dural venous sinus attenuation. No acute osseous abnormality. The aerated spaces are clear. IMPRESSION: No acute intracranial process. Reviewed, dictated and finalized at location K.
[2021-10-07 17:01] VITALS: BP 123/86; PULSE 70; RESP 17; TEMP 36.3; O2SAT 98
--- NOTE | 2021-10-07 17:10 | ECG_ITS ---
Measurements Intervals [place] Rate: 66 P: 17 OK: 141 QRS: 74 QRSD: 101 T: 74 QT: 409 QTc: 431 Interpretive Statements SINUS RHYTHM COMPARED TO ECG 09/21/2021 20:06:53 NO SIGNIFICANT CHANGES Electronically Signed On 10-07-2021 22:50:30 CDT by Ana María Murdock M.D.
[2021-10-07 17:21] VITALS: PULSE 67
[2021-10-07 17:24] LABS: Basophils Absolute Auto 0.1 K/mm3 (0.0-0.1); Basophils Percent Auto 0.9 % (0.2-1.2); Eosinophils Absolute Auto 0.1 K/mm3 (0-0.3); Eosinophils Percent Auto 1.5 % (0-4.4); Hematocrit 47.8 % (42.0-52.0); Hemoglobin 16.2 g/dL (14.0-18.0); Immature Granulocyte Absolute 0.05 K/mm3 (0.00-0.031); Immature Granulocyte Percent A 0.5 % (0-0.5); Lymphocytes Absolute Auto 2.13 K/mm3 (0.9-3.2); Lymphocytes Percent Auto 23.1 % (18.3-44.2); Mean Corpuscular HGB Conc 33.9 g/dl (32-36); Mean Corpuscular Hemoglobin 30.1 pg (26-34); Mean Corpuscular Volume 88.7 fl (80-100); Mean Platelet Volume 9.8 fl (7.4-10.4); Monocytes Absolute Auto 0.4 K/mm3 (0.1-0.6); Neutrophils Absolute Auto 6.5 K/mm3 (1.3-6.7); Platelet Count Result 434 k/mm3 (150-375); Red Blood Count 5.39 M/mm3 (4.6-6.20); Red Cell Distribution Width 13.7 % (11.5-14.5); White Blood Count 9.2 K/mm3 (4.5-10.0)
[2021-10-07 17:34] LABS: INR 0.9; Prothrombin Time 11.9 Seconds (11.1-14.7)
[2021-10-07 17:35] LABS: Partial Thromboplastin Time 27.4 SECONDS (22.3-36.8)
[2021-10-07 17:49] LABS: Appearance Urine Clear (Clear); Bilirubin Urine Negative (Negative); Color Urine Yellow (Yellow); Glucose Urine UA Negative (Negative); Ketones Urine Negative (Negative); Leukocyte Esterase Ur Negative LEU/UL (Negative); Nitrate Urine Negative (Negative); Protein Urine Negative (Negative); Specific Grav Ur 1.015 (1.001-1.035); Urobilinogen Urine 0.2 mg/dL (<2.0); pH Urine 5.5 (5.0-9.0)
[2021-10-07 17:56] LABS: Mucus Urine Rare /lpf; RBC Urine 0-2 /hpf (0-2); Squamous Epithelial Cell Urine Rare /hpf (Few); WBC Urine 0-3 /hpf
[2021-10-07 18:00] LABS: Amphetamine Screen Urine Negative (Negative); Barbiturate Screen Urine Negative (Negative); Benzodiazepines Screen Urine Negative (Negative); Cannabinoid Screen Urine Negative (Negative); Cocaine Screen Urine Negative (Negative); Methadone Screen Urine Negative (Negative); Opiate Screen Urine Negative (Negative); Phencyclidine Screen Urine Negative (Negative)
[2021-10-07 18:00] LABS: Ethanol 421 mg/dL (<10)
--- NOTE | 2021-10-07 18:02 | ED.SEIZURE ---
HPI - Seizure General Chief Complaint: Seizure <Laurel Dao MD - Last Filed: 10/07/21 22:02> Stated Complaint: seizure/ETOH <Laurel Dao MD - Last Filed: 10/07/21 22:02> Time Seen by Provider: 10/07/21 18:02 <Laurel Dao MD - Last Filed: 10/07/21 22:02> History of Present Illness HPI Narrative: Patient is a 40-year-old male with a history of seizure disorder, on Keppra, alcohol abuse, depression who presents to the emergency department for evaluation of alcohol abuse and acutely intoxicated. Patient reports that he is too drunk states that he has been drinking heavily today. He has not been taking his seizure medication as prescribed. Patient believes that he had a seizure today although this was not witnessed by anybody. History limited secondary to acute intoxication. Per chart review, pt with recent visits and past visits for EtOH also with visits to pulmonary and PCP. These were all reviewed. <Laurel Dao MD - Last Filed: 10/07/21 22:02> Seizure History: Yes <Laurel Dao MD - Last Filed: 10/07/21 22:02> Related Data Home Medications: Home Medications Medication Instructions Recorded Confirmed gabapentin 300 mg capsule 02/04/21 02/04/21 sertraline 100 mg tablet mg 02/04/21 <Laurel Dao MD - Last Filed: 10/07/21 22:02> Allergies/Adverse Reactions: Allergies Allergy/AdvReac Type Severity Reaction Status Date / Time No Known Allergies Allergy Unknown Verified 03/28/21 11:27 <Laurel Dao MD - Last Filed: 10/07/21 22:02> Review of Systems Review of Systems: ROS unobtainable: Yes unobtainable due to medical condition (acute alcohol intoxication) <Laurel Dao MD - Last Filed: 10/07/21 22:02> [facility] Past Medical History Medical History: Medical History Alcohol abuse Alcohol withdrawal seizure Alcoholic hepatitis Alcoholic pancreatitis BPH (benign prostatic hyperplasia) Central pontine myelinolysis Chronic anemia With labs consistent with anemia of chronic disease COPD (chronic obstructive pulmonary disease) Depression with anxiety Essential hypertension Hypercholesterolemia Cholesterol 490 15 April 2018 Hypertriglyceridemia Triglycerides 270 18 April 2018 Kidney stones Peripheral neuropathy Tobacco dependence <Laurel Dao MD - Last Filed: 10/07/21 22:02> Surgical History Surgical History: Surgical History No significant past surgical history <Laurel Dao MD - Last Filed: 10/07/21 22:02> Family History Family History: Family History Mother COPD (chronic obstructive pulmonary disease) Breast cancer Hypertension Seizures Diabetes mellitus Father Diabetes mellitus Parkinsons disease Lewy body dementia <Laurel Dao MD - Last Filed: 10/07/21 22:02> Social History Social History: Social History Social History: He has 3 children. According to prior H&Ps the patient consumed at least a 5th of gin or vodka a day. Smoking packs per day: 1 Smoking cigarettes per day: 20.0 Years smoked: 10 Smoking pack-years: 10.00 Smoking status: Current every day smoker Tobacco type: cigarettes Alcohol intake: former Substance use: former Substance use type: does not use Other substance usage details: quit drinking 5 days ago Gender identity (if verbalized by the patient): Male Sexual Orientation (if Verbalized by the Patient): Straight or Heterosexual Spiritual care concerns: No Agree to blood products: Yes <Laurel Dao MD - Last Filed: 10/07/21 22:02> Exam Narrative: GENERAL: Intoxicated, disheveled HEAD: Normocephalic, atraumatic. EYES: PERRLA and EOMI. ENT: Nares clear, no rhinorrhea or epistaxis. Mucous membrane
[2021-10-07 18:05] LABS: Add Urine Microscopic? YES; Blood Urine Trace-Intact (Negative)
[2021-10-07] MEDS: DEXTROSE 5%/0.45% SOD CHL 1,000 ML 125 ML IV CONT ×2 (18:43→23:19)
[2021-10-07] MEDS: THIAMINE HCL 200 MG/2 ML VIAL 100 MG IV PUSH (18:44)
[2021-10-07 19:03] LABS: Alanine Aminotransferase 31 U/L (6-50); Albumin Level 4.7 g/dL (3.5-5.1); Alkaline Phosphatase 136 U/L (38-126); Anion Gap 15 mmol/L (8-16); Aspartate Amino Transferase 34 U/L (17-59); Bilirubin,Total 0.4 mg/dL (0.2-1.3); Blood Urea Nitrogen 19 mg/dL (9-20); Calcium 8.6 mg/dL (8.4-10.2); Carbon Dioxide 25 mmol/L (22-30); Chloride 106 mmol/L (98-107); Estimated CRCL calculation 120 ml/min; Estimated Glomerular Filt Rate > 60; Glucose 95 mg/dL (65-110); Potassium 4.7 mmol/L (3.4-5.0); Sodium 146 mmol/L (137-145)
--- NOTE | 2021-10-07 20:16 | PC.NURSE ---
CALLED PT'S FRIEND MIRIAN (ONLY CONTACT LISTED IN PT'S CHART) TO COME PICK HIM UP. NO ANSWER, VOICEMAIL DID NOT IDENTIFY PERSON, MESSAGE NOT LEFT.
--- NOTE | 2021-10-07 20:32 | PC.NURSE ---
PT REFUSING TO WEAR MONITORING EQUIPTMENT, UNABLE TO FIND RIDE FOR PT TO BE D/C'D, PT CURRENTLY MOVED TO ROOM 15 VIA LENY LOPEZ PER EDP DR VERDE REQUEST.
--- NOTE | 2021-10-07 20:59 | PC.NURSE ---
Pt up off strecher. Pt completely naked and driking from faucet in room. Pt has removd his IV. Pt moved to room 15 by Bernarda NOBLESengineering teacher.
[2021-10-07] MEDS: levETIRAcetam 1000MG/NACL100ML 1,000 MG/100 ML BAG 400 MG IVPB (22:25)
[2021-10-07] MEDS: LORazepam INJ (*CRX) 2 MG/ML VIAL IM (22:25)
[2021-10-07] MEDS: diphenhydrAMINE HCl INJ 50 MG/ML VIAL 25 MG IM (22:26)
[2021-10-07] MEDS: HALOPERIDOL LACTATE 5 MG/ML VIAL IM (22:26)
--- NOTE | 2021-10-08 00:04 | PC.NURSE ---
Discussed w/ EDP Dr. Denney about moving pt to a monitored room. Dr. Denney advises that pt can remain sleeping in un monitored room until he is awake enough to walk and ambulate from ED. Will continue to check in on the pt while he sleeps in room 15 at this time.
[2021-10-08 06:03] VITALS: BP 145/92; PULSE 99; RESP 16; O2SAT 96
--- NOTE | 2021-10-08 07:06 | PC.NURSE ---
BREAKFAST TRAY ORDERED AT 0705
--- NOTE | 2021-10-08 07:14 | PC.NURSE ---
assumed care of pt, pt sleeping on stretcher at this time.
--- NOTE | 2021-10-08 07:32 | PC.NURSE ---
Pt's breakfast tray arrived and has been delivered to room.
[2021-10-08 07:39] LABS: Glucose Point of Care 120 mg/dl (65-105)
[2021-10-08 08:52] VITALS: BP 134/82; PULSE 73; RESP 19; O2SAT 99
[2021-10-13 08:13] LABS: Levetiracetam Keppra <2.0
== END 2021-10-08 08:54 | disposition home or self-care (01) ==
PROVIDERS: Emergency Provider Emergency Medicine
DX: F10.129 Alcohol abuse with intoxication, unspecified (principal); G40.909 Epilepsy, unspecified, not intractable, without status epilepticus; T42.6X6A Underdosing of other antiepileptic and sedative-hypnotic drugs, initial encounter; K70.10 Alcoholic hepatitis without ascites; N40.0 Benign prostatic hyperplasia without lower urinary tract symptoms; D63.8 Anemia in other chronic diseases classified elsewhere; J44.9 Chronic obstructive pulmonary disease, unspecified; I10 Essential (primary) hypertension; E78.00 Pure hypercholesterolemia, unspecified; E78.1 Pure hyperglyceridemia; G62.9 Polyneuropathy, unspecified; G37.2 Central pontine myelinolysis; Z87.442 Personal history of urinary calculi; F17.210 Nicotine dependence, cigarettes, uncomplicated; Y90.8 Blood alcohol level of 240 mg/100 ml or more
CPT/HCPCS: 36415; 51701; 70450; 71045; 80053; 80177; 80307; 81001; 82948; 85025; 85610; 85730; 93005; 96361; 96365; 96372; 96375; 99284; J1200; J1630; J1953; J2060; J3411

== ENCOUNTER 2021-12-11 14:11 | Emergency (ER) | payer MEDICAID, SELFPAY ==
[2021-12-11] VITALS (12 sets, daily range): BP systolic 117–141; BP diastolic 72–92; PULSE 68–101; RESP 16–20; TEMP 36.6; O2SAT 92–98
--- NOTE | 2021-12-11 15:32 | ED.GENADULT ---
HPI - General Adult General Chief complaint: Unspecified Stated complaint: unrsponsive, etoh , drugs? Time Seen by Provider: 12/11/21 15:14 History of Present Illness HPI narrative: Patient is a 41-year-old male with a history of seizure disorder, ethanol use disorder presenting with alcohol intoxication. Patient is not a reliable historian due to intoxication. States that he has been unable to stop drinking. States that his girlfriend called the ambulance earlier today but he is unsure why. States that she was concerned he had been vomiting blood but he states he has never vomited blood and he does not know where she got that. States that he drinks at least 1/5 of vodka a day. States that he has experienced withdrawal and seizures in the past. States his last drink was earlier today. He currently denies any complaints. Denies any pain. Related Data Home Medications Medication Instructions Recorded Confirmed gabapentin 300 mg capsule 02/04/21 02/04/21 sertraline 100 mg tablet mg 02/04/21 Allergies Allergy/AdvReac Type Severity Reaction Status Date / Time No Known Allergies Allergy Unknown Verified 03/28/21 11:27 Review of Systems Review of Systems: All systems reviewed & are unremarkable except as noted in HPI and below PMFSH Past Medical History Medical History Alcohol abuse Alcohol withdrawal seizure Alcoholic hepatitis Alcoholic pancreatitis BPH (benign prostatic hyperplasia) Central pontine myelinolysis Chronic anemia With labs consistent with anemia of chronic disease COPD (chronic obstructive pulmonary disease) Depression with anxiety Essential hypertension Hypercholesterolemia Cholesterol 490 15 April 2018 Hypertriglyceridemia Triglycerides 270 18 April 2018 Kidney stones Peripheral neuropathy Tobacco dependence Surgical History Surgical History No significant past surgical history Family History Family History Mother COPD (chronic obstructive pulmonary disease) Breast cancer Hypertension Seizures Diabetes mellitus Father Diabetes mellitus Parkinsons disease Lewy body dementia Social History Social History (Updated 12/11/21 @ 15:37 by Rayne Muñoz MD) Social History: He has 3 children. According to prior H&Ps the patient consumed at least a 5th of gin or vodka a day. Smoking packs per day: 1 Smoking cigarettes per day: 20.0 Years smoked: 10 Smoking pack-years: 10.00 Smoking status: Current every day smoker Tobacco type: cigarettes Alcohol intake: current Substance use: former Substance use type: does not use Gender identity (if verbalized by the patient): Male Sexual Orientation (if Verbalized by the Patient): Straight or Heterosexual Spiritual care concerns: No Agree to blood products: Yes Exam Const: General: no acute distress, well developed and acute distress HENMT: Head: normal to inspection, normocephalic and atraumatic Eyes: General: appearance normal, both eyes and all related structures Neck: Neck: normal visual inspection, full ROM and supple Resp: Effort & Inspection: normal respiratory effort, able to speak in complete sentences, normal respiratory pattern, no audible wheezes, respiratory effort not decreased and no respiratory distress Auscultation: clear to auscultation bilaterally Cardio: Rate: regular rate Rhythm: regular rhythm Heart sounds: normal S1 and S2 GI: GI Palp: Yes Soft to palpation, Yes Firmness to palpation present (GI), No Tenderness to palpation present (GI), No Guarding due to palpation present (GI) and No Rigid due to palpation Back/Spine/Pelvis: Cervical Spine: cervical ROM normal Skin: General skin exam: normal color and no rashes or lesions noted Neuro: General: oriented to person, oriented to place, oriented to t
[2021-12-11] MEDS: SODIUM CHLORIDE 0.9% IV 1,000 ML 999 ML IV CONT (15:48)
[2021-12-11] MEDS: FOLIC ACID 1 MG/0.2 ML INJ IV PUSH (15:53)
[2021-12-11 15:56] LABS: Basophils Absolute Auto 0.1 K/mm3 (0.0-0.1); Basophils Percent Auto 0.6 % (0.2-1.2); Eosinophils Absolute Auto 0.1 K/mm3 (0-0.3); Eosinophils Percent Auto 1.3 % (0-4.4); Hematocrit 38.4 % (42.0-52.0); Hemoglobin 12.9 g/dL (14.0-18.0); Immature Granulocyte Absolute 0.05 K/mm3 (0.00-0.031); Immature Granulocyte Percent A 0.5 % (0-0.5); Lymphocytes Absolute Auto 2.14 K/mm3 (0.9-3.2); Lymphocytes Percent Auto 20.2 % (18.3-44.2); Mean Corpuscular HGB Conc 33.6 g/dl (32-36); Mean Corpuscular Hemoglobin 30.1 pg (26-34); Mean Corpuscular Volume 89.7 fl (80-100); Mean Platelet Volume 9.7 fl (7.4-10.4); Monocytes Absolute Auto 0.6 K/mm3 (0.1-0.6); Neutrophils Absolute Auto 7.6 K/mm3 (1.3-6.7); Neutrophils Percent Auto 71.4 % (45.5-73.1); Platelet Count Result 272 k/mm3 (150-375); Red Blood Count 4.28 M/mm3 (4.6-6.20); Red Cell Distribution Width 13.8 % (11.5-14.5); White Blood Count 10.6 K/mm3 (4.5-10.0)
[2021-12-11 16:09] LABS: Ethanol 282 mg/dL (<10)
[2021-12-11 16:11] LABS: Alanine Aminotransferase 132 U/L (6-50); Albumin Level 3.8 g/dL (3.5-5.1); Alkaline Phosphatase 70 U/L (38-126); Anion Gap 14 mmol/L (8-16); Aspartate Amino Transferase 403 U/L (17-59); Bilirubin,Total 0.3 mg/dL (0.2-1.3); Blood Urea Nitrogen 20 mg/dL (9-20); Calcium 8.6 mg/dL (8.4-10.2); Carbon Dioxide 26 mmol/L (22-30); Chloride 103 mmol/L (98-107); Estimated CRCL calculation 113 ml/min; Estimated Glomerular Filt Rate > 60; Glucose 102 mg/dL (65-110); Potassium 4.5 mmol/L (3.4-5.0); Sodium 143 mmol/L (137-145)
[2021-12-11] MEDS: THIAMINE 500 MG/NS 100 ML 500 MG/100 ML BAG 200 MG IVPB (16:27)
[2021-12-11 20:31] LABS: Appearance Urine Clear (Clear); Bilirubin Urine Negative (Negative); Blood Urine Negative (Negative); Color Urine Yellow (Yellow); Glucose Urine UA Negative (Negative); Ketones Urine Negative (Negative); Leukocyte Esterase Ur Negative LEU/UL (Negative); Nitrate Urine Negative (Negative); Protein Urine Negative (Negative); Urobilinogen Urine 0.2 mg/dL (<2.0); pH Urine 5.5 (5.0-9.0)
[2021-12-11 20:46] LABS: Amphetamine Screen Urine Negative (Negative); Barbiturate Screen Urine Negative (Negative); Benzodiazepines Screen Urine Negative (Negative); Cannabinoid Screen Urine Negative (Negative); Cocaine Screen Urine Negative (Negative); Methadone Screen Urine Negative (Negative); Opiate Screen Urine Negative (Negative); Phencyclidine Screen Urine Negative (Negative)
[2021-12-11 20:54] LABS: Add Urine Microscopic? NO
[2021-12-11 22:00] LABS: Ethanol 151 mg/dL (<10)
[2021-12-12 00:52] LABS: Ethanol 65 mg/dL (<10)
[2021-12-12 01:52] VITALS: BP 155/97; PULSE 88; RESP 16; O2SAT 94
== END 2021-12-12 02:13 | disposition home or self-care (01) ==
PROVIDERS: Emergency Medicine; Emergency Provider Emergency Medicine
DX: F10.10 Alcohol abuse, uncomplicated (principal); F17.210 Nicotine dependence, cigarettes, uncomplicated; N40.0 Benign prostatic hyperplasia without lower urinary tract symptoms; D64.9 Anemia, unspecified; J44.9 Chronic obstructive pulmonary disease, unspecified; I10 Essential (primary) hypertension; E78.2 Mixed hyperlipidemia; G62.9 Polyneuropathy, unspecified
CPT/HCPCS: 36415; 80053; 80307; 81003; 85025; 96361; 96365; 96375; 99284; J3411; J7030

== ENCOUNTER 2023-02-02 08:49 | Outpatient (CLI) | payer OTHER, SELFPAY ==
--- NOTE | 2023-02-02 10:15 | NEURO_ITS ---
Impression: # Non-diabetic complains of numbness of lower extremities. # Neuropathy involving peroneal nerves more than posterior tibial nerves, motor more than sensory of axonal type. # Abnormal Needle/EMG exam with polyphasic responses proximally. Nerve Conduction Studies Anti Sensory Summary Table Stim Site NR Peak (ms) P-T Amp (?V) Site1 Site2 Delta-P (ms) Dist (cm) Germán (m/s) Left Sup Fibular Anti Sensory (Ant Lat Mall) 14 cm 3.8 15.8 14 cm Ant Lat Mall 3.8 16.0 42 Right Sup Fibular Anti Sensory (Ant Lat Mall) 14 cm 3.0 6.8 14 cm Ant Lat Mall 3.0 16.0 53 Left Sural Anti Sensory (Lat Mall) Calf 3.9 7.7 Calf Lat Mall 3.9 16.0 41 Right Sural Anti Sensory (Lat Mall) Calf 3.2 4.8 Calf Lat Mall 3.2 16.0 50 Motor Summary Table Stim Site NR Onset (ms) O-P Amp (mV) Site1 Site2 Delta-0 (ms) Dist (cm) Germán (m/s) Left Peroneal Motor (Vastus Med) NO RESPONSE Ankle NR Popit Ankle 0.0 Popit NR Right Peroneal Motor (Vastus Med) NO RESPONSE Ankle NR Popit Ankle 0.0 Popit NR Left Tibial Motor (Abd Tomas Brev) Ankle 4.7 1.6 Knee Ankle 9.8 41.0 42 Knee 14.5 1.5 Right Tibial Motor (Abd Tomas Brev) Ankle 4.8 1.6 Knee Ankle 8.5 43.0 51 Knee 13.3 1.2 F Wave Studies NR F-Lat (ms) L-R F-Lat (ms) Left Peroneal (Mrkrs) (EDB) NO RESPONSE NR Right Peroneal (Mrkrs) (EDB) NO RESPONSE NR Left Tibial (Mrkrs) (Abd Hallucis) 56.13 0.71 Right Tibial (Mrkrs) (Abd Hallucis) 56.83 0.71 EMG Side Muscle Nerve Root Ins Act Fibs Amp Dur Recrt Comment Right AntTibialis Dp Br Fibular L4-5 Nml Nml Nml >12ms Reduced Right Gastroc Tibial S1-2 Nml Nml Nml >12ms Reduced Right Fibularis Long Sup Br Fibular L5-S1 Nml Nml Nml >12ms Reduced Right Flex Dig Long Tibial L5-S2 Nml Nml Nml >12ms Reduced Right Ext Dig Brev Dp Br Fibular L5, S1 Nml Nml Nml >12ms Reduced Left AntTibialis Dp Br Fibular L4-5 Nml Nml Nml >12ms Reduced Left Gastroc Tibial S1-2 Nml Nml Nml >12ms Reduced Left Fibularis Long Sup Br Fibular L5-S1 Nml Nml Nml >12ms Reduced Left Flex Dig Long Tibial L5-S2 Nml Nml Nml >12ms Reduced Left Ext Dig Brev Dp Br Fibular L5, S1 Nml Nml Nml >12ms Reduced Right ExtHallLong Dp Br Fibular L5, S1 Nml Nml Nml >12ms Reduced Right Ext Dig Long Dp Br Fibular L5-S1 Nml Nml Nml >12ms Reduced Left ExtHallLong Dp Br Fibular L5, S1 Nml Nml Nml >12ms Reduced Left Ext Dig Long Dp Br Fibular L5-S1 Nml Nml Nml >12ms Reduced MTDD
== END 2023-02-02 08:50 | disposition home or self-care (01) ==
LOC: ANHNEURO 08:51
PROVIDERS: PCP Physician Assistant; Visit Provider Physician Assistant
DX: G62.9 Polyneuropathy, unspecified (principal)
CPT/HCPCS: 95886; 95910

== ENCOUNTER 2023-03-22 08:35 | Outpatient (CLI) | payer OTHER, SELFPAY ==
--- NOTE | 2023-03-22 10:30 | NEURO_ITS ---
Impression: # Complains of numbness of hands. History of left upper extremity injury long time ago. # Bilateral Carpal Tunnel Syndrome of moderate degree. # Left ulnar neuropathy around the elbow. # Responses are polyphasic proximally indictive of previous injury resulting in nerve dysfunction as well. Nerve Conduction Studies Anti Sensory Summary Table Stim Site NR Peak (ms) P-T Amp (?V) Site1 Site2 Delta-P (ms) Dist (cm) Germán (m/s) Left Median Anti Sensory (2-3nd Digit) Wrist 5.1 14.1 Wrist 2-3nd Digit 5.1 14.0 27 Wrist 5.6 14.7 Wrist 2-3nd Digit 5.1 14.0 27 Right Median Anti Sensory (2-3nd Digit) Wrist 5.7 6.3 Wrist 2-3nd Digit 5.7 14.0 25 Wrist 5.3 13.0 Wrist 2-3nd Digit 5.7 14.0 25 Left Radial Anti Sensory (Base 1st Digit) Wrist 2.7 10.7 Wrist Base 1st Digit 2.7 0.0 Right Radial Anti Sensory (Base 1st Digit) Wrist 2.2 23.6 Wrist Base 1st Digit 2.2 0.0 Left Ulnar Anti Sensory (5th Digit) Wrist 2.9 13.7 Wrist 5th Digit 2.9 14.0 48 Right Ulnar Anti Sensory (5th Digit) Wrist 2.6 15.1 Wrist 5th Digit 2.6 14.0 54 Motor Summary Table Stim Site NR Onset (ms) O-P Amp (mV) Site1 Site2 Delta-0 (ms) Dist (cm) Germán (m/s) Left Median Motor (Abd Poll Brev) Wrist 5.6 1.3 Elbow Wrist 5.6 31.0 55 Elbow 11.2 0.7 Right Median Motor (Abd Poll Brev) Wrist 5.2 2.1 Elbow Wrist 5.4 30.0 56 Elbow 10.6 2.2 Left Ulnar Motor (Abd Dig Minimi) Wrist 2.7 6.7 A Elbow Wrist 6.4 33.0 52 A Elbow 9.1 1.8 B Elbow Wrist 5.3 24.0 45 B Elbow 8.0 2.0 Right Ulnar Motor (Abd Dig Minimi) Wrist 2.7 8.4 A Elbow Wrist 5.5 32.0 58 A Elbow 8.2 7.5 F Wave Studies NR F-Lat (ms) L-R F-Lat (ms) Left Median (Mrkrs) (Abd Poll Brev) 33.94 0.43 Right Median (Mrkrs) (Abd Poll Brev) 33.51 0.43 Left Ulnar (Mrkrs) (Abd Dig Min) 28.10 1.88 Right Ulnar (Mrkrs) (Abd Dig Min) 29.98 1.88 EMG Side Muscle Nerve Root Ins Act Fibs Amp Dur Recrt Comment Right 1stDorInt Ulnar C8-T1 Nml Nml Nml Nml Nml Right Ext Indicis Radial (Post Int) C7-8 Nml Nml Nml Nml Nml Right Ext Digitorum Radial (Post Int) C7-8 Nml Nml Nml Nml Nml Right BrachioRad Radial C5-6 Nml Nml Nml Nml Nml Right PronatorTeres Median C6-7 Nml Nml Nml Nml Nml Right Abd Poll Brev Median C8-T1 Nml Nml Nml >12ms Reduced Left 1stDorInt Ulnar C8-T1 Nml Nml Nml >12ms Reduced Left Ext Indicis Radial (Post Int) C7-8 Nml Nml Nml Nml Nml Left Ext Digitorum Radial (Post Int) C7-8 Nml Nml Nml Nml Nml Left BrachioRad Radial C5-6 Nml Nml Nml Nml Nml Left PronatorTeres Median C6-7 Nml Nml Nml >12ms Reduced Left Abd Poll Brev Median C8-T1 Nml Nml Nml >12ms Reduced Left Triceps Radial C6-7-8 Nml Nml Nml Nml Nml MTDD
== END 2023-03-22 08:36 | disposition home or self-care (01) ==
LOC: ANHNEURO 08:36
PROVIDERS: PCP Physician Assistant; Visit Provider Physician Assistant
DX: G56.03 Carpal tunnel syndrome, bilateral upper limbs (principal); G56.22 Lesion of ulnar nerve, left upper limb
CPT/HCPCS: 95886; 95911

== ENCOUNTER 2024-08-08 17:50 | Emergency (ER) | payer OTHER, SELFPAY ==
--- NOTE | ~2024-08-08 | XR_ITS ---
XR forearm LT 2V Ordering provider: Blanca Tapia APRN History: . L forearm injury . Comparison: None. FINDINGS: BONES: No acute fracture or dislocation. JOINT SPACES: Normal. SOFT TISSUES: Normal. IMPRESSION: No acute osseous abnormality left forearm. Reviewed, dictated and finalized at location A.
[2024-08-08 17:53] VITALS: BP 142/83; RESP 16; TEMP 36.7; O2SAT 98
--- OUTSIDE RECORDS SUMMARY | 2024-08-08 17:53 | XMS_ITS | Encounter Summary ---
Author Organization [facility] Address [facility] [place] [address] Care Team Providers Care Claims Technician Name Role Phone Yi Crowley MD Primary Care Provider [phone] Claritza Alex PA-C Primary Care Provider [phone] Encounter Details Date Type Department Care Team (Late st Contact Info) Description 12/01/2018 Hospital Follow-up Call [facility] Telemetry [address] [place], [place] [id number] Tabitha Sanchez Social History Tobacco Use Types Packs/Day Years Used Date Smoking Tobacco: Every Day Cigarettes Smokeless Tobacco: Never Alcohol Use Standard Drinks/Week Comments Yes 0 (1 standard drink = 0.6 oz pure alcohol) pt states he would like to get help with drinking Sex and Gender Information Value Date Recorded Sex Assigned at Not on file Legal Sex Male 10:46 PM CDT Gender Identity Not on file Sexual Orientation Not on file documented as of this encounter Functional Status * RETIRED Are you deaf or do you have serious difficulty hearing Answer Date of Assessment Author Status Yes 11/28/2018 3:51 AM CDT Activ e * RETIRED Are you blind or do you have serious difficulty seeing, even when wearing glasses? Answer Date of Assessment Author Status No 11/28/2018 3:51 AM CDT Activ e * Do you have serious difficulty walking or climbing stairs? Answer Date of Assessment Author Status No 11/28/2018 3:51 AM CDT Gertrudis Leyva RN Active * Do you have difficulty dressing or bathing? Answer Date of Assessment Author Status No 11/28/2018 3:51 AM Gertrudis Arnold RN Active * Because of a physical, mental, or emotional condition, do you have difficulty doing errands alone such as visiting a doctor's office or shopping? Answer Date of Assessment Author Status No 11/28/2018 3:51 AM Gertrudis Arnold RN Active documented as of this encounter Mental Status * Because of a physical, mental, or emotional condition, do you have serious difficulty concentrating, remembering, or making decisions? 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
--- OUTSIDE RECORDS SUMMARY | 2024-08-08 17:53 | XMS_ITS | Continuity of Care Document ---
Author Organization [facility] Address [address] [place] [address] [place] [address] Phone Care Team Providers Care Pull Tab Dealer Name Role Phone Patel Orantes DO Unavailable Unavailable Advance Directives Directive Yes / No Effective Date File Name No Information Encounters Encounter Description Practice Location Reason(s) For Visit Diagnoses Date Provider Providers Copied on Encounter [facility], [address], [place], [place], [id number], [place] tel:[phone] [facility] No Information Lamberto Dunne. [address] [facility], [place], [address], [place]. tel: [phone] Family History Family Member Type Diagnosis Age At Onset No Information Payers Payer name Insurance type Covered republican ID Authoriza tion(s) No Information Social History Type Description Quantity Date Captured Comments Sex Male Smoking Status No Information Chief Complaint And Reason For Visit No Information Reason For Referral Reason For Referral No Information History Of Present Illness Encounter Date Complaint History Of Prese nt Illness No Information Functional Status Date Functional Assessmen t No Information Instructions Date Instruction Additional Infor mation No Information Assessments Type Assessment Date No Information Patient Care Teams Name Effective Dates (start - stop) Status Members No Information
--- OUTSIDE RECORDS SUMMARY | 2024-08-08 17:53 | XMS_ITS | Clinical Summary ---
Author Organization [facility] Address [address] [place] [address] Care Team Providers Care Chucking Machine Operator Name Role Phone Yi Crowley MD Primary Care Provider [phone] Emery Zepeda MD Unavailable [phone] Maria Alejandra Lockett MD Unavailable [phone] Source Comments [facility],non-owned Affiliates and Associated Physician Practices is amultiple site organization consisting of ambulatory clinics and hospital sitesin [place], [place], [place] and [place]. This disclosure is being madepursuant to the Care Everywhere program and may not contain all information available regarding this patient. Last updated 17.[facility] Allergies No known active allergies Medications * Be aware that medications may not be up to date on this document. Alwaysverify current medications with the patient. levETIRAcetam (KEPPRA) 1000 MG tablet Take 1,000 mg by mouth every 12 hours 1 Active hydrOXYzine hcl (ATARAX) 25 MG tablet Take 25 mg by mouth 3 times daily 1 Active sertraline (ZOLOFT) 100 MG tablet TAKE 1 TABLET BY MOUTH ONCE DAILY IN THE MORNING FOR 30 DAYS 1 Active traZODone (DESYREL) 150 MG tablet 500 mg at bedtime 1 Active citalopram (CELEXA) 20 MG tablet Take 20 mg by mouth once daily 0 Active gabapentin (NEURONTIN) 300 MG capsule 1 Active Thiamine Mononitrate (B1) 100 MG TABS Take 100 mg by mouth once daily 90 tablet 3 1 Active topiramate (TOPAMAX) 50 MG tablet Take half tablet two times daily for 2 weeks. Increase to one tablet two times daily for 2 weeks. Increase to 2 tablets two times daily there after 360 tablet 2 1 Active Active Problems No known active problems Social History Tobacco Use Types Packs/Day Years Used Date Smoking Tobacco: Every Day Smokeless Tobacco: Never Alcohol Use Standard Drinks/Week Comments Not Currently 0 (1 standard drink = 0.6 oz pur e alcohol) Sex and Gender Information Value Date Recorded Sex Assigned at Not on file Legal Sex Male 10:39 AM BONDERITE OPERATOR Gender Identity Not on file Sexual Orientation Not on file Last Filed Vital Signs Vital Sign Reading Time Taken Comments Blood Pressure 116/76 02/20/2021 11:21 AM BONDERITE OPERATOR Pulse 60 02/20/2021 11:21 AM BONDERITE OPERATOR Temperature 37.2 C (98.9 F) 02/20/2021 11:21 AM BONDERITE OPERATOR Respiratory Rate - - Oxygen Saturation 98% 02/20/2021 11:21 AM BONDERITE OPERATOR Inhaled Oxygen Concentration - - Weight 99.8 kg (220 lb) 02/20/2021 11:21 AM BONDERITE OPERATOR Height 180.3 cm (5' 11 ) 02/20/2021 11:21 AM BONDERITE OPERATOR Body Mass Index 30.68 02/20/2021 11:21 AM BONDERITE OPERATOR Plan of Treatment Health Maintenance Due Date Last Done Comments DTAP/TDAP/TD VACCINES (1 - Tdap) 11/06/1999 HEPATITIS B VACCINE (1 of 3 - 19+ 3-dose series) 11/06/1999 PNEUMOCOCCAL VACCINE (1 of 2 - PCV) 11/06/1999 SCREENING FOR DIABETES 11/29/2023 11/28/2020, 2020 LIPID TESTING 11/30/2023 11/29/2018 COVID-19 VACCINE (1 - season) 2023 DEPRESSION SCREENING 04/11/2024 INFLUENZA VACCINE (Season Ended) 2024 ZOSTER VACCINE (1 of 2) 2030 HEPATITIS C SCREENING Completed 11/28/2018 , 11/28/2018, 11/28/2018, Additional history exists HIV SCREENING Completed 11/28/2020 HIB VACCINE Aged Out No longer eligi ble based on patient's age to complete this topic HPV VACCINE Aged Out No longer eligi ble based on patient's age to complete this topic MENINGOCOCCAL (Group B) VACCINE SHARED DECISION-MAKING Aged Out No longer eligible based on patient's age to complete this topic MENINGOCOCCAL GROUPS A/C/Y/W VACCINE Aged Out No longer eligible based on patient's age to complete this topic Procedures Procedure Name Priority Date/Time Associated Diagnosis Comments HEMOGLOBIN A1C Routine 11/28/2020 10:12 AM CDT Neuropathy HIV-1 HIV-2 ANTIBODY + HIV P24 AG PANEL Routine 11/28/2020 10:12 AM CDT Neuropathy from Last 3 Months or Most Recently Relevant to Health Maintenance Results * HIV-1 HIV-2 ANTIBODY + HIV P24 AG PANEL (11/28/2020 10:12 AM CDT) HIV Antigen/Antibod y 1 & 2 Non-reacti ve Non-react nael 11/28/2020 1:04 PM CDT [facility] Comment:Neither HIV-1 p24 An tigen nor HIV-1/HIV-2 Antibodies are detected. Blood BLOOD SPECIMEN / Unknown Lab Venipuncture / Unknown 11/28/2020 10:12 AM CDT 11/28/2020 11:15 AM CDT Chauncey Segura MD LAB - CHEMISTRY ORDERABLES Final Result Performing Organization Address City/State/[facility] Co de Phone Number [address] [address], [facility] [phone] * HEMOGLOBIN A1C (11/28/2020 10:12 AM CDT) Hemoglobin A1c 5.0 4.4 - 6.3 % 11/28/2020 1:55 PM CDT [facility] Estimated Average Glucose 97 mg/dL 11/28/2020 1:55 PM CDT [facility] Comment: HbA1c Interpretation: Treatment target values recommended by ADA and other clinical organizations should be used to evaluate metabolic control in patients. Treatment Target Values: Normal : < 5.7% Pre-diabetes: 5.7-6.4% Diabetes: Equal to or greater than 6.5% Reference: [place] Diabetes Association Standards of Care in Diabetes -2014 In patients 70 years and older consider HbA1c target range of 7.0-7.5% Reference: Diabetes Mellitus in Older People: Position Statement on behalf of the International Association of Gerontology and Geriatrics (IAGG), the Diabetes Working Constitution Party for Older People (EDWPOP), and the International Task Force of Experts in Diabetes. Shree Brewer, et al. J [place] Medical Directors Association. 2012 Test results diagnostic of diabetes should be repeated for confirmation. The Sebia Capillary 2 assay for the measurement of HbA1c is a National Glycohemoglobin Standardization Program (NGSP)certified method. Blood BLOOD SPECIMEN / Unknown Lab Venipuncture / Unknown 11/28/2020 10:12 AM CDT 11/28/2020 11:19 AM CDT Chauncey Segura MD LAB - CHEMISTRY ORDERABLES Final Result [facility] [address] [place] [address], [facility] [phone] from Last 3 Months or Most Recently Relevant to Health Maintenance Insurance [facility] Care Teams Chucking Machine Operator Relationship Specialty Start Date End Date Yi Crowley MD [address] [place] [phone] PCP - General 06/19/19 Emery Zepeda MD [address] DIV OF NEUROLOGY [place], [place] Resident Student Resident 10/17/20 Maria Alejandra Lockett MD [address] DIV [place] NEUROLOGY [place], [place] Resident Neurology 02/25/21
--- OUTSIDE RECORDS SUMMARY | 2024-08-08 17:53 | XMS_ITS | Data Portability ---
Author Organization [facility], Main Office Address [address] [place] [address] Assessment Encounter Date Assessment Date Assessment LastModified by Organization Details LastModified Time 08/02/2023 08/02/2023 Lengthy visit. 45 minutes-plus for extended c/o multiple, thick calluses and nails zenia. [email or web address] Not available 08/02/2023 11:07:02 Plan of Treatment Reminders Order Date Submit Date Provider Last Modified By Organization Details Last Modified Time Details Appointments None recorded. Lab None recorded. Referral None recorded. Procedures None recorded. Surgeries paring or cutting of benign hyperkera totic lesion, more than 4 lesions (SURG) 2023 024 [email or web address] Not available 09:45:15 Imaging None recorded. Medication Orders Diflucan 150 mg tablet 2023 024 [facility] [place], [address], 11:35:33 Patient TargetsNo targets recorded. Patient Instructions Encounter Date Encounter Id Patient Instructions Last Modified By Organization Details Last Modified Time 08/02/2023 [id number] Recommend removal of hallux nails and possible surgery for calluses zenia sub-4th. [email or web address] Not available 08/02/2023 11:07:26 Reason for Referral None Reported. Problems Name Problem SNOMED Code Status Onset Date Resolution Date Notes Provider Name and Address Organization Details Recorded Time [facility] is of toenails 120526112 Active 2023 JOSE ANTONIO Perales, [facility] 11:20:17 Pain in right foot 4589273878142 07 Active 2023 Neto Anderson DPM [address], [place], [address], [employer] 4 11:28:40 Pain in left foot 7536137182726 07 Active 2023 Neto Anderson DPM [address], [place], [address], [employer] 4 11:28:47 Problem Notes None recorded. Procedures Surgical History Date Name Laterality Status Provider Name and Address Organization Details Recorded Time 4 Nail Debridement completed Neto Anderson DPM [address], [place], [address], [employer] 08/31/2023 11:27:48 4 Callus Debridement, 5+ completed Neto Anderson DPM [address], [place], [address], [employer] 08/31/2023 11:27:22 4 Nail Debridement completed Neto Anderson DPM [address], [address], [place], [address], [employer] 08/02/2023 11:03:54 4 Callus Debridement, 5+ completed Neto Anderson DPM [employer] [address], [place], [address], [employer] 08/02/2023 11:06:14 Imaging Results None recorded. Procedure Notes None recorded. Medical Equipment None Reported. Allergies No known drug allergies Medications Name Sig Start Date Stop Date Status Note LastModified by Organization Details LastModified Time amoxicillin 500 mg capsule TAKE 1 CAPSULE BY MOUTH EVERY 8 HOURS UNTIL GONE active Not Available Not Available N ot Available fluconazole 150 mg tablet TAKE TWO TABLETS BY MOUTH NOW, THEN ONE TABLET PER WEEK. active Not Available Not Available No t Available amlodipine 10 mg tablet TAKE 1 TABLET BY MOUTH ONCE DAILY IN THE MORNING active Not Available Not Available No t Available nicotine 21 mg/24 hr daily transdermal patch REMOVE AND APPLY 1 PATCH TOPICALLY ONCE DAILY DIRECTED active Not Available Not Available No t Available gabapentin 300 mg capsule TAKE 1 CAPSULE BY MOUTH THREE TIMES DAILY active Not Available Not Available No t Available albuterol sulfate HFA 90 mcg/actuation aerosol inhaler INHALE 2 PUFFS BY MOUTH EVERY 4 HOURS NEEDED active Not Available Not Available No t Available Symbicort 160 mcg-4.5 mcg/actuation HFA aerosol inhaler INHALE 2 PUFFS BY MOUTH TWICE DAILY DIRECTED FOR COPD active Not Available Not Available No t Available Symbicort 80 mcg-4.5 mcg/actuation HFA aerosol inhaler INHALE 2 PUFFS BY MOUTH TWICE DAILY DIRECTED active Not Available Not Available No t Available Vitals Date Recorded Oxygen saturation Oxygen saturation in Arterial blood by Pulse oximetry Body temperature Body height Body mass index (BMI) Body weight Heart rate Systolic blood pressure Diastolic blood pressure Provider Name and Address Organization Details Last Updated DateTime 4 93 % 93 % 99 [degF] 180.34 cm 33.5 kg/m2 863309. 17 g 83 /min 138 mm[Hg] 95 mm[Hg] JOSE ANTONIO Perales [employer] [facility] 4 10:14:13 Date Recorded Body height Body mass index (BMI) Body weight Oxygen saturation Oxygen saturation in Arterial blood by Pulse oximetry Body temperature Heart rate Provider Name and Address Organization Details Last Updated DateTime 4 180.34 cm 33.5 kg/m2 749883. 17 g 94 % 94 % 98.2 [degF] 77 /min JOSE ANTONIO Perales [employer] [facility] 4 11:00:43 Social History Question Answer Notes LastModified by Organizat ion Details LastModified Time Tobacco Smoking Status Current Every Day Smoker JOSE ANTONIO Perales [facility] [employer] [facility] 08/02/2023 10:15:24 What Is Your Level Of Alcohol Consumption? None [email or web address] Information not available 08/02/2023 What Is Your Level Of Caffeine Consumption? Moderate [email or web address] Information not available 08/02/2023 What Was The Date Of Your Most Recent Tobacco Screening? 08/31/2023 [email or web address] Information not available 08/31/2023 How Much Tobacco Do You Smoke? 0.5 PPD Information not available 08/02/2023 Do You Use Any Illicit Or Recreational Drugs? No [email or web address] Information not available 08/02/2023 Has Tobacco Cessation Counseling Been Provided? No [email or web address] Information not available 08/02/2023 Do You Or Have You Ever Used Any Other Forms Of Tobacco Or Nicotine? No [email or web address] Information not available 08/02/2023 Sex: Unknown Functional Status None recorded. Mental Status None recorded. Family History Nothing Reported. Medical History Condition Response SEIZURES/EPILEPSY Y LUNG DISEASE/DISORDER Y DEPRESSION (INCLUDING POST ) Y Past Encounters Encounter ID Performer Location Encounter Start Date Encounter Closed Date Diagnosis/Indication Diagnosis SNOMED-CT Code Diagnosis ICD10 Code Diagnosis Note [id number] [facility] [place] [address] [place] [phone] 08/02/2023 09:32:08 08/02/2023 11:44:54 [id number] JORGE [facility] [place] [address] [place] [address] 08/31/2023 10:54:27 08/31/2023 13:48:01 Onychomycosis of toenails 200698450 B35.1 Pain in right foot 967[address] 21883 03158 M79.671 Pain in left foot 078614 1055 66493 M79.672 Health Concerns Section Related Observation LastModified by Organization [place] LastModified Time None Recorded Concern Status LastModified by Organization Details LastModified Time None Recorded Advance Directives Directive None Recorded Payers Encounter Date Sequence Insurance Name Policy Number Policy Emerson Covered Member ID Emerson Member ID Guarantor Name 08/02/2023 1 [facility] (MEDICAID HMO) [id number] Kristian Tirado [id number] Kristian Tirado 08/31/2023 1 [facility] (MEDICAID HMO) [id number] Kristian Tirado [id number] Kristian Tirado Notes Date Note Type Note Provider Name and Address Organization Details Recorded Time 08/02/2023 text/html Pt RTC for c/o painful calluses both feet and long, thick, incurvated nails, especially Lt great toenail, loose and ready to come off its seat on toe. Neto Anderson DPM [address], [place], [address], [employer] [facility] [employer] 08/02/2023 11:07:37 08/31/2023 text/html multiple calluse s on both feet/heels and long thick ingrown nails both feet, fungal Neto Anderson DPM [address], [facility] [address], [place], [address], [facility] 08/31/2023 11:28:53
--- OUTSIDE RECORDS SUMMARY | 2024-08-08 17:53 | XMS_ITS | Clinical Summary ---
Author Organization [facility] Address [address] [place] [address] Care Team Providers Care Tile Molder Name Role Phone Claritza Alex PA-C Primary Care Provider [phone] Allergies No known active allergies Medications amlodipine 5 MG tablet Take 5 mg by mouth daily. Active Active Problems Problem Noted Date Diagnosed Date Seizure ([facility]) 11/28/2018 Immunizations Immunization Administration Dates Next Due Tdap (Boostrix) 02/15/2024(Deferred: - Booster M arch 2021) Social History Tobacco Use Types Packs/Day Years Used Date Smoking Tobacco: Every Day Cigarettes Smokeless Tobacco: Never Tobacco Cessation:Ready to Q uit: Not Asked; Counseling Given: Not Answered Alcohol Use Standard Drinks/Week Comments Not Currently [...] Sign Reading Time Taken Comments Blood Pressure 137/92 02/15/2024 8:34 PM OFFSET PRESSMAN Pulse 95 02/15/2024 8:34 PM OFFSET PRESSMAN Temperature 36.1 C (97 F) 02/15/2024 8:34 PM OFFSET PRESSMAN Respiratory Rate 18 02/15/2024 8:34 PM OFFSET PRESSMAN Oxygen Saturation 96% 02/15/2024 8:34 PM OFFSET PRESSMAN Inhaled Oxygen Concentration - - Weight 91 kg (200 lb 9.9 oz) 02/15/2024 7:20 PM OFFSET PRESSMAN Height 182.9 cm (6') 02/15/2024 7:20 PM OFFSET PRESSMAN Body Mass Index 27.21 02/15/2024 7:20 PM OFFSET PRESSMAN Plan of Treatment Health Maintenance Due Date Last Done Comments Annual Physical 11/06/1983 Hepatitis B Vaccines (1 of 3 - 19+ 3-dose series) 11/06/1999 Pneumococcal Vaccine: Pediatrics (0 to 5 Years) and At-Risk Patients (6 to 49 Years) (1 of 2 - PCV) 11/06/1999 COVID-19 Vaccine ( - 2023-2 5 season) 2023 06/12/2021, 06/08/2021 DTaP, Tdap and Td Vaccines ( 3 - Td or Tdap) 08/26/2031 08/25/2021, 05/31/2017 Hepatitis C Completed 11/28/2018 HPV Vaccines Aged Out No longer eligi ble based on patient's age to complete this topic Meningococcal B Vaccine Aged Out No l onger eligible based on patient's age to complete this topic Meningococcal Vaccine Aged Out No jas yosi eligible based on patient's age to complete this topic RSV Immunizations Under 20 Months Aged Out No longer eligible b ased on patient's age to complete this topic Procedures Procedure Name Priority Date/Time Associated Diagnosis Comments HEPATITIS C ANTIBODY Routine 11/28/2018 6:28 AM CDT from Last 3 Months or Most Recently Relevant to Health Maintenance Results * HEPATITIS C ANTIBODY (11/28/2018 6:28 AM CDT) HEPATITIS C AB NON-REACTI VE NON-REACTI VE 11/28/2018 8:51 AM CDT [facility] 11/28/2018 6:28 AM CDT us Vanesa Pena MD LABORATORY Final Resu lt [facility] [address] [place] [address], [place] [phone] from Last 3 Months or Most Recently Relevant to Health Maintenance Additional Health Concerns Infection Onset Date Last Indicated MRSA Comment:11/28/18 +MRSA 11/29/2018 11/29/2018 Insurance [facility] [employer] Advance Directives * Full Code (Latest Code Status on File) Date Activated Date Inactivated Comments 11/28/2018 5:30 PM 11/30/2018 4:30 PM Care Teams Tile Molder Relationship Specialty Start Date End Date Claritza Alex PA-C [address] [place] [phone] PCP - General PHYSICIAN MACHINE SHOP WORKER 02/15/24
--- NOTE | 2024-08-08 18:17 | ED_ITS ---
HPI - Wound/Laceration General Chief Complaint: Wound/Laceration <Blanca Tapia APRN - Last Filed: 08/08/24 18:23> Stated Complaint: lac to the L forearm <Blanca Tapia APRN - Last Filed: 08/08/24 18:23> Time Seen by Provider: 08/08/24 18:10 <Blanca Tapia APRN - Last Filed: 08/08/24 18:23> Focused HPI: Patient is a 43-year-old male who presents to the ER following a left forearm injury. He reports he works in [employer] and thinks he cut his arm on the edge of a toilet. Patient is unsure whether not there are any foreign bodies in the wound as I never know what we are working with in [employer]. He denies significant left forearm pain. Pt endorses significant bleeding immediately after the injury, but reports it has since subsided. He endorses a history of high blood pressure and neuropathy. Pt is unsure of when he last had his Tdap. GENERAL: Well-appearing, well-nourished, and in no acute distress. HEAD: Normocephalic, atraumatic. CHEST: Clear to auscultation. ?No respiratory distress. HEART: Regular rate and rhythm.? NEURO: ?Alert and oriented x3. SKIN: Approximately 2-3 cm approximated, linear wound to pt's L forearm, bleeding controlled Patient screened in triage and initial orders placed.? ?Additional care and disposition to be based upon?diagnostic testing and treatment. <Blanca Tapia APRN - Last Filed: 08/08/24 18:23> Focused HPI: Patient is a 43-year-old male who presents to the ER following a left forearm injury. He reports he works in [employer] and thinks he cut his arm on the edge of a toilet. Patient is unsure whether not there are any foreign bodies in the wound as I never know what we are working with in [employer]. He denies significant left forearm pain. Pt endorses significant bleeding immediately after the injury, but reports it has since sub sided. He endorses a history of high blood pressure and neuropathy. Pt is unsure of when he last had his Tdap. GENERAL: Well-appearing, well-nourished, and in no acute distress. HEAD: Normocephalic, atraumatic. CHEST: Clear to auscultation. ?No respiratory distress. HEART: Regular rate and rhythm.? NEURO: ?Alert and oriented x3. SKIN: Approximately 2cm approximated, linear wound to pt's L forearm, bleeding controlled Patient screened in triage and initial orders placed.? ?Additional care and disposition to be based upon?diagnostic testing and treatment. <Yi Sesay PA-C - Last Filed: 08/08/24 22:30> Related Data Home Medications: Home Medications ?Medication ?Instructions ?Recorded ?Confirmed ?Last Taken ?Type gabapentin 300 mg capsule 02/04/21 02/04/21 Unknown History sertraline 100 mg tablet mg 02/04/21 Unknown History <Blanca Tapia, SENIOR TRAINER - Last Filed: 08/08/24 18:23> Allergies/Adverse Reactions: Allergies Allergy/AdvReac Type Severity Reaction Status Date / Time No Known Allergies Allergy Unknown Verified 03/28/21 11:27 <Blanca Tapia, SENIOR TRAINER - Last Filed: 08/08/24 18:23> Review of Systems Review of Systems: All systems reviewed & are unremarkable except as noted in HPI and below <Yi Sesay PA-C - Last Filed: 08/08/24 22:30> PMFSH Past Medical History Medical History: Medical History Central pontine myelinolysis Hypertriglyceridemia Triglycerides 270 18 April 2018 Hypercholesterolemia Cholesterol 490 15 April 2018 Chronic anemia With labs consistent with anemia of chronic disease Essential hypertension Tobacco dependence Depression with anxiety Peripheral neuropathy BPH (benign prostatic hyperplasia) Kidney stones Alcoholic hepatitis Alcoholic pancreatitis COPD (chronic obstructive pulmonary disease) Alcohol withdrawal seizure Alcohol abuse <Blanca Tapia, SENIOR TRAINER - Last Filed: 08/08/24 18:23> Surgical History Surgical History: Surgical History No significant past surgical history <Blanca Tapia, SENIOR TRAINER - Last Filed: 08/08/24 18:23> Family History Family History: Family History Mother COPD (chronic obstructive pulmonary disease) Breast cancer Hypertension Seizures Diabetes mellitus Father Diabetes mellitus Parkinsons disease Lewy body dementia <Blanca Tapia APRN - Last Filed: 08/08/24 18:23> Social History Social History: Social History (Updated 12/11/21 @ 15:37 by Rayne Arce MD) Social History: He has 3 children. According to prior H&Ps the patient consumed at least a 5th of gin or vodka a day. Smoking packs per day: 1 Smoking cigarettes per day: 20.0 Years smoked: 10 Smoking pack-years: 10.00 Smoking status: Current every day smoker Tobacco type: cigarettes Alcohol intake: current Substance use: former Substance use type: does not use Gender identity (if verbalized by the patient): Male Sexual Orientation (if Verbalized by the Patient): Straight or Heterosexual Spiritual care concerns: No Agree to blood products: Yes <Blanca Tapia APRN - Last Filed: 08/08/24 18:23> Exam Narrative: GENERAL: Well-appearing, well-nourished, and in no acute distress. HEAD: Normocephalic, atraumatic. EYES: EOMI. EXTREMITIES: Normal range of motion. No edema. 2 cm linear laceration into subcutaneous tissue to the left forearm SKIN: Warm, dry, no rash. NEURO: No focal deficits. Alert and oriented x3. PSYCH: Normal mood and affect <Yi Sesay PA-C - Last Filed: 08/08/24 22:30> Course Course Emergency Course: Patient updated on his workup and agrees with plan of care <Yi Sesay PA-C - Last Filed: 08/08/24 22:30> Vital Signs Vital signs: Vital Signs Temperature 98.0 F 08/08/24 17:53 Respiratory Rate 16 08/08/24 17:53 Blood Pressure 142/83 H 08/08/24 17:53 Pulse Oximetry 98 08/08/24 17:53 Oxygen Delivery Room Air 08/08/24 17:53 Temperature 98.0 F 08/08/24 17:53 Respiratory Rate 16 08/08/24 17:53 Blood Pressure 142/83 H 08/08/24 17:53 Pulse Oximetry 98 08/08/24 17:53 Oxygen Delivery Room Air 08/08/24 17:53 <Blanca Tapia APRN - Last Filed: 08/08/24 18:23> Vital Signs Temperature 98.0 F 08/08/24 17:53 Respiratory Rate 16 08/08/24 17:53 Blood Pressure 142/83 H 08/08/24 17:53 Pulse Oximetry 98 08/08/24 17:53 Oxygen Delivery Room Air 08/08/24 17:53 Temperature 98.0 F 08/08/24 17:53 Respiratory Rate 16 08/08/24 17:53 Blood Pressure 142/83 H 08/08/24 17:53 Pulse Oximetry 98 08/08/24 17:53 Oxygen Delivery Room Air 08/08/24 17:53 <Yi Sesay PA-C - Last Filed: 08/08/24 22:30> Procedures Laceration Laceration 1: Date: 08/08/24 <HARI Núñez Last Filed: 08/08/24 22:30> Time: 22:30 <Yi Sesay PA-C - Last Filed: 08/08/24 22:30> Site: upper extremity <HARI Núñez Last Filed: 08/08/24 22:30> Side (If applicable): left <HARI Núñez Last Filed: 08/08/24 22:30> Size (cm): 2 <HARI Núñez Last Filed: 08/08/24 22:30> Description: linear <HARI Núñez Last Filed: 08/08/24 22:30> Depth: simple, single layer <HARI úNñez Last Filed: 08/08/24 22:30> Local Anesthetic: lidocaine 1% and with epi <HARI Núñez Last Filed: 08/08/24 22:30> Amount of anesthesia used (mL): 2 <HARI Núñez Last Filed: 08/08/24 22:30> Pre-repair: wound explored and irrigated <HARI Núñez Last Filed: 08/08/24 22:30> ====== Skin Level ======: Skin layer closed with: nylon <HARI Núñez Last Filed: 08/08/24 22:30> Size (cm): 4-0 <HARI Núñez Last Filed: 08/08/24 22:30> Number of sutures: 2 <HARI Núñez Last Filed: 08/08/24 22:30> Technique: simple, interrupted <HARI Núñez Last Filed: 08/08/24 22:30> ====== Subcutaneous Layer ======: ====== Muscle Layer ======: ====== Tendon Layer ======: MDM - Wound/Laceration MDM Narrative Medical decision making narrative: Patient presents emergency department for laceration of the left forearm. His wound was irrigated and closed with sutures. X-ray without acute osseous abnormalities or evidence of foreign body. He was educated on further wound care. Updated on tetanus vaccination. He is to follow up primary provider. He was given warnings to return to the ER <Yi Sesay PA-C - Last Filed: 08/08/24 22:30> Differential Diagnosis Differential diagnosis: Likely laceration, abscess and avulsion of skin <HARI Núñez Last Filed: 08/08/24 22:30> Imaging Data Radiologist's impression: ITS Impressions Forearm X-Ray 08/08/24 18:31 IMPRESSION: No acute osseous abnormality left forearm. <HARI Núñez Last Filed: 08/08/24 22:30> Critical Care Time Critical Care Time Critical Care Time: No <HARI Núñez Last Filed: 08/08/24 22:30> Discharge Plan Discharge Clinical Impression: Laceration <Blanca Tapia APRN - Last Filed: 08/08/24 18:23> Patient Disposition: Home <Blanca Tapia APRN - Last Filed: 08/08/24 18:23> Condition: Stable <Blanca Tapia APRN - Last Filed: 08/08/24 18:23> Instructions: Antibiotic Form, Care For Your Stitches (ED), Laceration (ED) <Blanca Tapia APRN - Last Filed: 08/08/24 18:23> Additional Instructions: Return to the emergency department if you experience fever, redness or swelling of your wound, abnormal drainage from your wound, or any other symptoms that are concerning to you. Apply antibiotic ointment daily. Do not soak the wound. Clean with mild soap and water daily. Take oral antibiotics as prescribed Follow-up with your primary care doctor for suture removal in 10-14 days. <Blanca Tapia APRN - Last Filed: 08/08/24 18:23> Patient Language: Japanese <Blanca Tapia APRN - Last Filed: 08/08/24 18:23> Prescriptions: New cephalexin 500 mg capsule 500 mg PO Q8H 5 Days Qty: 15 0RF No Action sertraline 100 mg tablet gabapentin 300 mg capsule <Blanca Tapia APRN - Last Filed: 08/08/24 18:23> Follow-up/Referrals: Alex,TEE Jerry [Primary Care Provider] - <Blanca Tapia APRN - Last Filed: 08/08/24 18:23>
--- OUTSIDE RECORDS SUMMARY | 2024-08-08 21:01 | XMS_ITS | Clinical Summary ---
Author Organization [facility] Address [address] [place] [address] Care Team Providers Care Sports Doctor Name Role Phone Claritza Alex PA-C Primary Care Provider [phone] Allergies No known active allergies Medications amlodipine 5 MG tablet Take 5 mg by mouth daily. Active Active Problems Problem Noted Date Diagnosed Date Seizure ([facility]) 11/28/2018 Immunizations Immunization Administration Dates Next Due [...] Comments Blood Pressure 137/92 02/15/2024 8:34 PM THROW OUT CLERK Pulse 95 02/15/2024 8:34 PM THROW OUT CLERK Temperature 36.1 C (97 F) 02/15/2024 8:34 PM THROW OUT CLERK Respiratory Rate 18 02/15/2024 8:34 PM THROW OUT CLERK Oxygen Saturation 96% 02/15/2024 8:34 PM THROW OUT CLERK Inhaled Oxygen Concentration - - Weight 91 kg (200 lb 9.9 oz) 02/15/2024 7:20 PM THROW OUT CLERK Height 182.9 cm (6') 02/15/2024 7:20 PM THROW OUT CLERK Body Mass Index 27.21 02/15/2024 7:20 PM THROW OUT CLERK Plan of Treatment Health Maintenance Due Date [...] VE NON-REACTI VE 11/28/2018 8:51 AM CDT [facility] 11/28/2018 6:28 AM CDT us Vanesa Pena MD LABORATORY Final Resu lt [facility] [address] [place] [address], [place] [phone] from Last 3 Months or Most Recently Relevant to Health Maintenance Additional Health Concerns Infection Onset Date Last 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
--- OUTSIDE RECORDS SUMMARY | 2024-08-08 21:01 | XMS_ITS | Continuity of Care Document ---
Author Organization [facility] Address [address] [place] [address] [place] [address] Phone Care Team Providers Care Double Bass Player Name Role Phone Patel Orantes DO Unavailable Unavailable Advance Directives Directive Yes / No Effective Date File Name No Information Encounters Encounter Description Practice Location Reason(s) For Visit Diagnoses Date Provider Providers Copied on Encounter [facility], [address], [place], [place], [id number], [place] tel:[phone] [facility] No Information Lamberto Dunne. [address] [facility], [place], [address], [place]. tel: [phone] Family History Family Member Type Diagnosis Age At Onset No Information Payers Payer name Insurance type Covered green party ID Authoriza tion(s) No Information Social History [...]
--- OUTSIDE RECORDS SUMMARY | 2024-08-08 21:01 | XMS_ITS | Encounter Summary ---
Author Organization [facility] Address [facility] [place] [address] Care Team Providers Care Automotive Parts Interpreter Name Role Phone Yi Crowley MD Primary Care Provider [phone] Claritza Alex PA-C Primary Care Provider [phone] Encounter Details Date Type Department Care Team (Late st Contact Info) Description 12/01/2018 Hospital Follow-up Call [facility] Telemetry [address] [place], [place] [address] Tabitha Sanchez Social History Tobacco Use Types [...] documented as of this encounter Care Teams Automotive Parts Interpreter Relationship Specialty Start Date End Date Yi Crowley MD [facility] [address] [place] [phone] PCP - General FAMILY PRACTICE 11/27/18 02/14/24 Claritza Alex PA-C [address] [place] [phone] PCP - General PHYSICIAN ACTUARY CLERK 02/15/24 documented as of this encounter
[2024-08-08] MEDS: TETANUS,DIPHTHERIA,AC PERTUSSIS ADULT (0.5 ML) BOOSTRIX IM (21:02)
--- OUTSIDE RECORDS SUMMARY | 2024-08-08 21:02 | XMS_ITS | Clinical Summary ---
Author Organization [facility] [employer] Address [address] [place] [address] Care Team Providers Care Oil Well Driller Name Role Phone Yi Crowley MD Primary Care Provider Emery Zepeda MD Unavailable [phone] Maria Alejandra Lockett MD Unavailable [phone] Source Comments [facility] [employer],non-owned Affiliates and Associated Physician Practices is amultiple site organization consisting of ambulatory clinics and hospital sitesin [place], [place], [place] and [place]. This disclosure is being madepursuant to the Care Everywhere program and may not contain all information available regarding this patient. Last updated 17.[facility] [employer] Allergies No known active allergies Medications * [...] on file Legal Sex Male 10:39 AM SUPERVISOR INSPECTION DEPARTMENT Gender Identity Not on file Sexual Orientation Not on file Last Filed Vital Signs Vital Sign Reading Time Taken Comments Blood Pressure 116/76 02/20/2021 11:21 AM SUPERVISOR INSPECTION DEPARTMENT Pulse 60 02/20/2021 11:21 AM SUPERVISOR INSPECTION DEPARTMENT Temperature 37.2 C (98.9 F) 02/20/2021 11:21 AM SUPERVISOR INSPECTION DEPARTMENT Respiratory Rate - - Oxygen Saturation 98% 02/20/2021 11:21 AM SUPERVISOR INSPECTION DEPARTMENT Inhaled Oxygen Concentration - - Weight 99.8 kg (220 lb) 02/20/2021 11:21 AM SUPERVISOR INSPECTION DEPARTMENT Height 180.3 cm (5' 11 ) 02/20/2021 11:21 AM SUPERVISOR INSPECTION DEPARTMENT Body Mass Index 30.68 02/20/2021 11:21 AM SUPERVISOR INSPECTION DEPARTMENT Plan of Treatment Health Maintenance Due Date [...] ve Non-react nael 11/28/2020 1:04 PM CDT [facility] Comment:Neither HIV-1 p24 An tigen nor HIV-1/HIV-2 Antibodies are detected. Blood BLOOD SPECIMEN / Unknown Lab Venipuncture / Unknown 11/28/2020 10:12 AM CDT 11/28/2020 11:15 AM CDT Chauncey Segura MD LAB - CHEMISTRY ORDERABLES Final Result Performing Organization Address City/State/[facility] Co de Phone Number [address] [address], [facility] [phone] * HEMOGLOBIN A1C (11/28/2020 10:12 AM CDT) Hemoglobin A1c 5.0 4.4 - 6.3 % 11/28/2020 1:55 PM CDT [facility] Estimated Average Glucose 97 mg/dL 11/28/2020 1:55 PM CDT [facility] Comment: HbA1c Interpretation: Treatment target values recommended by ADA and other clinical organizations should be used to evaluate metabolic control in patients. Treatment Target Values: Normal : < 5.7% Pre-diabetes: 5.7-6.4% Diabetes: Equal to or greater than 6.5% Reference: [place] [employer] Standards of Care in Diabetes -2014 In patients 70 years and older consider HbA1c target range of 7.0-7.5% Reference: Diabetes Mellitus in Older People: Position Statement on behalf of the International Association of Gerontology and Geriatrics (IAGG), the Diabetes Working Libertarian for Older People (EDWPOP), and the International Task Force of Experts in Diabetes. Shree Brewer, et al. J [place] [employer] Association. 2012 Test results diagnostic of diabetes should be repeated for confirmation. The Sebia Capillary 2 assay for the measurement of HbA1c is a National Glycohemoglobin Standardization Program (NGSP)certified method. Blood BLOOD SPECIMEN / Unknown Lab Venipuncture / Unknown 11/28/2020 10:12 AM CDT 11/28/2020 11:19 AM CDT Chauncey Segura MD LAB - CHEMISTRY ORDERABLES Final Result [facility] [address] [place] [address], [facility] [phone] from Last 3 Months or Most Recently Relevant to Health Maintenance Insurance [facility] Care Teams Oil Well Driller Relationship Specialty Start Date End Date Yi Crowley MD [address] [place] [phone] PCP - General 06/19/19 Emery Zepeda MD [address] DIV OF NEUROLOGY [place], [place] Resident Student Resident 10/17/20 Maria Alejandra Lockett MD [address] DIV [place] NEUROLOGY [place], [place] Resident Neurology 02/25/21
[2024-08-08 21:08] VITALS: BP 137/87; PULSE 83; RESP 15; O2SAT 97
[2024-08-08] MEDS: LIDO 1%/EPINEPHRINE 1:100,000 20 ML VIAL 10 ML INFILTRATE (22:46)
== END 2024-08-08 22:50 | disposition home or self-care (01) ==
PROVIDERS: Emergency Provider Physician Assistant; PCP Physician Assistant
DX: S51.812A Laceration without foreign body of left forearm, initial encounter (principal); Z23 Encounter for immunization; I10 Essential (primary) hypertension; E78.00 Pure hypercholesterolemia, unspecified; E78.1 Pure hyperglyceridemia; D64.9 Anemia, unspecified; J44.9 Chronic obstructive pulmonary disease, unspecified; N40.0 Benign prostatic hyperplasia without lower urinary tract symptoms; G62.9 Polyneuropathy, unspecified; F41.8 Other specified anxiety disorders; F17.210 Nicotine dependence, cigarettes, uncomplicated; Z87.442 Personal history of urinary calculi; Z79.899 Other long term (current) drug therapy
CPT/HCPCS: 12001; 73090; 90471; 90715; 99283; J2004